=== PATIENT | male | born 1930 | race Caucasian/White ===

== ENCOUNTER 2016-07-12 15:01 | Inpatient (IN) | payer MEDICARE, MEDICAID ==
--- NOTE | 2016-07-12 15:49 | ED Physician Chart ---
Chief Complaint/HPI - Patient Information Date Seen:: 07/12/16 Time Seen:: 15:05 Chief Complaint:: G-tube replacement. History of Present Illness:: Brought in by ambulance from nursing facility because pt accidentally pulled out his G-tube earlier today. Pt already had a Martinez catheter inserted prior to arrival to keep the gastrostomy site open. Pt otherwise appears to be comfortable without distress. Pt has h/o dementia and is unable to cooperate; thus, H & P are limited. Info is primarily based on review of limited transfer documents. Allergies:: Allergies Allergy/AdvReac Type Severity Reaction Status Date / Time Penicillins Allergy Verified 02/29/16 17:07 Vitals:: Vital Signs - 8 hr 07/12/16 15:17 Temp 98.0 F HR 81 RR 22 BP 179/76 O2 Sat % 94 Historian:: Medical Records (from transferring facility.) Family MD/PCP:: Dr. Gunn LMP:: N/A Review:: Nurse's Note Reviewed, Transfer documents Reviewed Review of Systems - Review of Systems General/Constitutional: Other (Pt does not cooperate for ROS.) Past Medical History - Past Medical History Past Medical History: HTN, CHF, Asthma/COPD, CVA/TIA, Seizures, Arthritis, Dementia Family History: Other (Pt is unable to cooperate to provide info on FHx.) Social History: Care Facility, Other (Pt is unable to cooperate to provide info on SHx.) Employment:: Retired. Surgical History: PEG/GTube, other (Pt is unable to cooperate to provide info on Surgical Hx.) Psychiatricy History: Dementia Medication: Reviewed Family Medical History - Family Member Father History Unknown: Yes Physical Exam - Physical Examination General/Constitutional: Awake, Well-developed, well-nourished, Alert, No distress, Non-toxic appearing Other Gen/Cons comments:: Breathes comfortably, responsive to voice and tactile stimuli. Head: Atraumatic Eyes: Lids, conjuctiva normal, PERRL, EOMI Skin: No ecchymosis, Well hydrated, No lymphadenopathy ENMT: External ears, nose nl, Nasal exam nl, Oropharynx nl, Tonsils nl Neck: Nontender, Full ROM w/o pain, No JVD, No nuchal rigidity, No mass, No stridor Respiratory: Nl effort/Exclusion, Clear to Auscultation, No Wheeze/Rhonchi/Rales Cardio Vascular: RRR, No murmur, gallop, rubs, NL S1 S2 GI: No tenderness/rebounding/guarding, No organomegaly, No hernia, Normal BS's, Nondistended, No mass/bruits, No McBurney tenderness Other GI comments:: Obese but soft. Gastrostomy site in LUQ appears to be clean with Martinez catheter in place. Extremities: No edema Other Neuro/Psych comments:: Alert, responsive to voice and tactile stimuli. Spontaneous movements noticed in all 4 extremities. Pt does not cooperate for full neurological exam. Labs/Radiology/EKG Results - Lab Results Results: Laboratory Tests 07/12/16 07/12/16 07/12/16 16:31 16:31 16:31 WBC 6.9 RBC 4.35 Hgb 13.4 Hct 40.0 MCV 92.0 MCH 30.7 MCHC Differential 33.4 RDW 12.1 Plt Count 201 MPV 8.2 Neutrophils % 72.7 Lymphocytes % 14.9 L Monocytes % 10.3 H Eosinophils % 1.8 Basophils % 0.3 PT 12.0 H INR 1.20 PTT (Actin FS) 29.3 Sodium 134 L Potassium 4.6 Chloride 99 Carbon Dioxide 31.2 H Anion Gap 8.4 BUN 15 Creatinine 0.6 L Est GFR ( Amer) TNP Est GFR (Non-Af Amer) TNP BUN/Creatinine Ratio 25.0 Glucose 118 H Calcium 9.5 Total Bilirubin 0.4 AST 17 ALT 13 Alkaline Phosphatase 93 Total Protein 7.1 Albumin 3.9 L Globulin 3.2 Albumin/Globulin Ratio 1.2 Phenytoin Valproic Acid 07/12/16 07/12/16 16:31 16:31 WBC RBC Hgb Hct MCV MCH MCHC Differential RDW Plt Count MPV Neutrophils % Lymphocytes % Monocytes % Eosinophils % Basophils % PT INR PTT (Actin FS) Sodium Potassium Chloride Carbon Dioxide Anion Gap BUN Creatinine Est GFR ( Amer) Est GFR (Non-Af Amer) BUN/Creatinine Ratio Glucose Calcium Total Bilirubin AST ALT Alkaline Phosphatase Total Protein Albumin Globulin Albumin/Globulin Ratio Phenytoin 21.0 H Valproic Acid 31.8 L ED Septic Shock - . Is Septic Shock (SBP<90, OR Lactate>4 mmol\L) present?: No - <6hrs of presentation: Vital Signs: Vital Signs - 8 hr 07/12/16 15:17 Temp 98.0 F HR 81 RR 22 BP 179/76 O2 Sat % 94 Reassessment (Disposition) - Reassessment Reassessment:: 1745 Pt remains stable. Remaining lab results just became available. Dr. Gunn is to be contacted. 1914 Case was discussed with Dr. Gunn with H & P and pertinent lab findings reviewed. Pt is to be admitted to [facility] under his care. - Diagnosis Diagnosis:: Gastrostomy tube dislodgement. HTN, stable. h/o CVA with dementia. h/o seizure disorder, stable. - Patient Disposition Admitted to:: Med/Surg Admitting Medical Physician:: Vazquez Gunn Time:: 19:15 Condition at Disposition:: Stable
[2016-07-12 16:38] LABS: % BASOPHILS 0.3 % (0.0-2.0); % EOSINOPHILS 1.8 % (0.0-5.0); % LYMPHOCYTES 14.9 % (20.0-50.0); % MONOCYTES 10.3 % (2.0-10.0); % NEUTROPHILS 72.7 % (40.0-80.0); HEMOGLOBIN 13.4 gm/dL (12.6-17.4); MEAN CORPUSCULAR HEMOGLOBIN 30.7 pg (27.0-31.0); MEAN CORPUSCULAR HGB CONC 33.4 pg (28.0-36.0); MEAN PLATELET VOLUME 8.2 fl; NEUTROPHILE ABSOLUTE 5.1 Th/cmm (1.8-8.0); PLATELET COUNT 201 Th/cmm (150-400); RED BLOOD COUNT 4.35 Mil/cmm (3.80-5.80); RED CELL DISTRIBUTION WIDTH 12.1 % (11.5-20.0); WHITE BLOOD COUNT 6.9 Th/cmm (4.8-10.8)
[2016-07-12 16:48] LABS: INR 1.2 (0.5-1.4)
[2016-07-12 16:50] LABS: ALB/GLOB RATIO 1.2 (1.0-1.8); ALKALINE PHOSPHATASE 93 U/L (34-104); ANION GAP 8.4 (7.0-16.0); BILIRUBIN,TOTAL 0.4 mg/dL (0.3-1.0); BUN - UREA NITROGEN 15 mg/dL (7-25); CALCIUM SERUM 9.5 mg/dL (8.6-10.3); CARBON DIOXIDE 31.2 mEq/L (21.0-31.0); CHLORIDE 99 mEq/L (98-107); CREATININE - SERUM 0.6 mg/dL (0.7-1.3); GLUCOSE 118 mg/dL (70-105); POTASSIUM SERUM 4.6 mEq/L (3.5-5.1); SGOT 17 U/L (13-39); SGPT/ALT 13 U/L (7-52); SODIUM SERUM 134 mEq/L (136-145)
[2016-07-12] MEDS ORDERED: Magnesium Hydroxide (MOM) 30 mL UDC PO PRN (19:24)
[2016-07-12] MEDS ORDERED: Fleet Enema 135 mL RC PRN (19:24)
[2016-07-12] MEDS: D5-0.45NS 1,000 ML IV SCH (22:24)
--- NOTE | 2016-07-13 05:55 | Admit Criteria Form ---
Admit Criteria Forms - Admit Criteria Diagnosis: GASTROENTEROLOGY GRG Clinical Indications for Admission to Inpatient Care (Place 'X' for any and all applicable criteria): Hospital admission is needed for appropriate care of the patient because of ANY ONE of the followin [ ]I. Hemoperitoneum(7) [ ]II. Ascites requiring acute treatment indicated by ANY ONE of the following( 8)(9): [ ]a) Hemodynamic instability remaining after emergency or observation level care (as appropriate) [ ]b) Peritoneal signs present (eg, abdominal rigidity, rebound tenderness, absent bowel sounds) [ ]c) Tachypnea, Hypoxemia, or other respiratory symptoms remain after emergency or observation level care (as appropriate) [ ]d) Suspected infected ascites as indicated by ANY ONE of the following: [ ]i) Temperature greater than 100 degrees F (37.8 degrees C) [ ]ii) Abdominal pain or tenderness not relieved by paracentesis [ ]iii) Systemic signs of infection (eg, elevated WBC count, fever) [ ]iv) Ascitic fluid analysis consistent with infection ( eg, elevated WBC count): [ ]v) Vital sign abnormality [X]III. Suspected acute intra-abdominal process indicated by ANY ONE of the following(1)(2)(3)(4)(5): [ ]a) Hemodynamic instability [ ]b) Peritoneal signs present (eg, abdominal rigidity, rebound tenderness, absent bowel sounds) [ ]c) Bowel obstruction suspected (eg, severe vomiting, abdominal distension) [ ]d) Suspected mesenteric ischemia or ischemic colitis(6) [X]e) Other signs or symptoms of acute abdominal disease (eg, severe pain, free air): [ ]IV. Severe liver disease indicated by ANY ONE of the following(8)(9)(10)(11)( 12)(13)(14): [ ]a) Acute hepatitis (eg, transaminase level greater than 1000 IU/L) [ ]b) Acute elevation of prothrombin time to more than 50% above normal or INR greater than 1.5 [ ]c) Bilirubin greater than 20 mg/dL (342 micromoles/L) (15) [ ]d) New-onset or worsening hepatic encephalopathy [ ]e) Acute liver necrosis [ ]f) Vomiting or dehydration that is severe of persistent [ ]g) Hemodynamic instability due to liver disease [ ]h) Acute renal failure [ ]i) Hepatic abscess [ ]j) Dehydration that is severe or persistent [ ]k) Hepatic hydrothorax(21) [ ]l) Other indications of severe liver disease (eg, persistent fever , ingestion of hepatotoxin) [ ]V. Severe diarrhea indicated by ANY ONE of the following(17)(18)(19)(20)(21)( 22)(23): [ ]a) High fever or other high-risk infection situation [ ]b) Intractable bloody diarrhea (eg, more than 6 bloody stools per day) [ ]c) Suspected Clostridium difficile-associated diarrhea(24) [ ]d) Change in mental status that persists after emergency or observation level care (as appropriate) [ ]e) Severe dehydration (eg, greater than 9% loss of body weight in children) [ ]f) Inability to maintain hydration [ ]g) Peritoneal signs present (eg, abdominal rigidity, rebound tenderness, absent bowel sounds) [ ]h) Abdominal ischemia suspected(6) [ ]i) Hemodynamic instability that persists after emergency or observation level care (as appropriate) [ ]j) Severe electrolyte abnormalities requiring inpatient care [ ]k) Acute renal failure [ ]. Suspected toxic megacolon(5)(6) [ ]VII.Severe dysphagia indicated by ANY ONE of the following(25)(26): [ ]a) Suspected esophageal perforation or fistula(27) [ ]b) Suspected cause that requires inpatient care (eg, caustic ingestion, severe esophagitis) (28) [ ]c) Severe dehydration (eg, greater than 9% loss of body weight in children) [ ]d) Inability to manage secretions or maintain hydration [ ]e) Hemodynamic instability that persists after emergency or observation level care (as appropriate) [ ]f) Severe electrolyte abnormalities requiring inpatient care [ ]g) Acute renal failure [ ]VIII.Vomiting and ANY ONE of the following (29)(30)(31)(32): [ ]a) High fever or other high-risk infection situation [ ]b) Change in mental status that persists after emergency or observation level care (as appropriate) [ ]c) Severe dehydration (e.g., greater than 9% loss of body weight in children) [ ]d) Peritoneal signs present (e.g., abdominal rigidity, rebound tenderness, absent bowel sounds) [ ]e) Hemodynamic instability that persists after emergency or observation level care (as appropriate) [ ]f) Severe electrolyte abnormalities requiring inpatient care [ ]g) Acute renal failure [ ]h) Bowel obstruction suspected (e.g., severe vomiting, abdominal distension) [ ]i) Vomiting that is severe or persistent after medical treatment [ ]IX. Significant dehydration indicated by ANY ONE of the following(23)(24)(25) [ ]a) Clinical findings of severe dehydration indicated by ANY ONE of the following: [ ]i) Acute loss of weight from baseline (5% of body weight in adults, 9% in pediatric patients) [ ]ii) Hemodynamic instability [ ]iii) Acute renal failure [ ]iv) Serum sodium greater than 150 mEq/L (mmol/L) [ ]b) Dehydration that is persistent indicated by ALL of the following: [ ]i) Oral rehydration therapy not tolerated or insufficient to adequately correct dehydration [ ]ii) Appropriate intravenous treatment (eg, fluids) does not readily correct dehydration hours of (ie, after 12 to 24 of treatment) [ ]X. Gastroparesis and ANY ONE of the following(37)(38)(39): [ ]a) Dehydration that is severe or persistent [ ]b) Severe electrolyte abnormalities requiring inpatient care [ ]c) Acute renal failure [ ]d) Vomiting that is severe or persistent [ ]XI. Complications of transplanted liver indicated by ANY ONE of the following (40)(41): [ ]a) Acute graft rejection requiring inpatient management (eg, intravenous immunosuppression)(42) [ ]b) Failure of transplanted liver as indicated by ANY ONE of the following: [ ]i) Acute hepatitis (eg, transaminase level greater than 1000 International Units per liter (IU/L)) [ ]ii) Acute elevation of prothrombin time to more than 50% above baseline or INR greater than 1.5 [ ]iii) Bilirubin greater than 20 mg/dL (342 micromoles/L) [ ]iv) New-onset or worsening hepatic encephalopathy [ ]v) Acute elevation of serum ammonia level (eg, greater than 210 mcg/dL (150 micromoles/L)) [ ]vi) Acute liver necrosis [ ]c) Infection requiring inpatient management (eg, Hemodynamic instability, need for intravenous antimicrobial treatment)(43)(44)(45)(46)(47)(48)(49)(50) [ ]d) Other complication of transplanted liver (eg, thrombosis, autoimmune hepatitis, variceal bleeding) requiring inpatient management(51)(52) [ ]XII Complications of transplanted pancreas indicated by ANY ONE of the following(53): [ ]a) Acute graft rejection requiring inpatient management (eg, intravenous immunosuppression)(42)(54) [ ]b) Failure of transplanted pancreas as indicated by ANY ONE of the following: [ ]i) Serum amylase greater than 3 times the upper limit of normal or baseline [ ]ii) Serum lipase greater than 3 times the upper limit of normal or baseline [ ]iii) Imaging findings consistent with pancreatic inflammation or necrosis [ ]c) Infection requiring inpatient management (eg, Hemodynamic instability, need for intravenous antimicrobial treatment)(43)(44)(45)(46)(47)(48)(49)(50) [ ]d) Other complication of transplanted liver (eg, thrombosis, autoimmune hepatitis, variceal bleeding) requiring inpatient management(51)(52) [ ]X. Gastroenterology condition and ALL of the following: [ ]a) Symptom or finding for which emergency and observation care have failed or are not considered appropriate (Also use General Criteria: Observation Care as appropriate) [ ]b) Presence of ANY ONE of the following: [ ]i) A General Admission Criteria [ ]ii) A Pediatric General Admission Criteria. The original [facility] content created by [facility] has been revised. The portions of the content which have been revised are identified through the use of italic text or in bold,and [facility] has neither reviewed nor approved the modified material. All other unmodified content is copyright [facility]. Please see references footnoted in the original [facility] edition 2016 Admit Criteria Met?: Yes
[2016-07-13] MEDS: INSULIN ASPART, RECOMBINANT 100 UNITS/ML SUBQ SCH ×2 (09:00→16:28)
[2016-07-13] MEDS ORDERED: Non-Formulary Item 1 EA (Apixaban [Eliquis] 2.5 MG) GT SCH (09:00)
[2016-07-13] MEDS ORDERED: Non-Formulary Item 1 EA (Protein Supplement [Promod] 30 ML) GT SCH (09:00)
--- NOTE | 2016-07-13 10:12 | History & Physical Pre-OP ---
CHIEF COMPLAINT: Malfunctioning G-tube. HISTORY OF PRESENT ILLNESS: This is an 85-year-old male who presents to [facility] ER for malfunctioning G-tube after the patient accidentally pulled out his G-tube while at the longterm. The patient has a previous history of dementia and therefore unable to provide any history at this point. Majority of the history is derived from the medical records and transferred records. PAST MEDICAL HISTORY: Includes hypertension, CHF, asthmatic bronchitis, COPD, CVA, TIA, has a history of seizure disorder, arthritis, and dementia. SOCIAL HISTORY: [facility] Denies any tobacco use or IV drug use. ALLERGIES: PENICILLIN. MEDICATIONS: See med list. LABORATORY DATA: CBC: White count was 6.9, hemoglobin 13.4, hematocrit 40.0, platelets 201. PT/INR 12.0 and 1.2. Chem-7, sodium 134, potassium 4.6, chloride 99, bicarbonate 31, BUN 15, creatinine 0.6, glucose 118, AST 17, ALT is 13, alkaline phosphatase 93. REVIEW OF SYSTEMS: Unable to obtain due to patient's current condition. PHYSICAL EXAMINATION: VITAL SIGNS: Temperature 98.0, pulse 81, respirations 22, blood pressure ____/76. GENERAL: This is an 85-year-old male, well-developed, well-nourished, appears stated age. HEENT: Normocephalic, atraumatic. Pupils equal, round, react to light and accommodation. Extraocular muscles are intact. TMs intact. NECK: Supple, good range of motion, no thyromegaly, no lymphadenopathy. CARDIOVASCULAR: Regular rate and rhythm. No murmurs, rubs or clicks. LUNGS: Clear to auscultation. No rales, rhonchi or wheezing. ABDOMEN: Soft, nontender, nondistended. Bowel sounds are active in all 4 quadrants. Martinez catheter over stoma to maintain stone opening. EXTREMITIES: No clubbing, cyanosis or edema. Pedal pulses intact. NEUROLOGIC: Cranial nerves 2-12 grossly intact. No focal deficits. ASSESSMENT: 1. Malfunctioning G-tube. 2. Hypertension. 3. Congestive heart failure. 4. Asthmatic bronchitis. 5. Transient ischemic attack/cerebrovascular accident. 6. Seizure disorder. 7. Dementia. PLAN: We will order GI consult with Dr. Sidhom to replace G-tube. Also, we will continue home medications. The patient on IV fluids D5 half normal saline at 50 mL per hour. [facility]# [id number]
[2016-07-13] MEDS: Levetiracetam 500 mg/5mL 5mL UDC PO SCH ×2 (10:19→22:00)
[2016-07-13] MEDS ORDERED: Diatrizoate Meglumine/Diatri 30 mL Sol PO ONE (11:47)
--- NOTE | 2016-07-13 15:41 | Operative Report ---
INPATIENT GASTROINTESTINAL PROCEDURE PROCEDURE: G-tube change. REFERRING PHYSICIAN: Dr. Gunn. REASON FOR PROCEDURE: Malfunctioning G-tube, dysphagia. PREOPERATIVE DIAGNOSES: Malfunctioning G-tube, dysphagia. POSTOPERATIVE DIAGNOSES: New 20-Trinidadian gastrostomy tube placed. DESCRIPTION OF PROCEDURE: The patient was placed on his back. The old G-tube site was identified. There was a Martinez tube coming out of it. The Martinez was removed after deflating internal balloon and pulled out. A new 20-Trinidadian gastrostomy tube was lubricated. The tip inserted through the gastrocutaneous fistula entering into stomach lumen. Internal balloon was inflated with 15 mL of sterile saline. Outer phalange was secured in position. Procedure was then completed. COMPLICATIONS: None. FINDINGS: New 20-Trinidadian gastrostomy tube placed. RECOMMENDATIONS: 1. Use G-tube if x-ray shows it in the stomach 2. KUB with Gastrografin 3. Abdominal binder to protect the G-tube. Thank you for allowing me to participate. Please call me if any questions. JOB# [id number]
--- NOTE | 2016-07-13 16:34 | Diagnostic Imaging Report ---
Upper GI (Limited) HISTORY: Gastrostomy tube placement Water-soluble contrast was instilled into the gastrostomy tube. The exam demonstrates opacification of the gastric lumen with flow contrast into the duodenum. No extravasation. IMPRESSION: 1. Confirmation of gastrostomy tube within the gastric lumen
[2016-07-13] MEDS: D5-0.45NS 1,000 ML IV SCH (22:18)
--- NOTE | 2016-07-14 01:39 | Consultation ---
Inpatient GI consult REFERRING PHYSICIAN: Dr. Gunn. REASON FOR CONSULTATION: Malfunctioning G-tube. HISTORY OF PRESENT ILLNESS: An 85-year-old male who came from outside facility with a G-tube that had been pulled out and now has a Martinez tube in place. The patient is otherwise a poor historian. PAST MEDICAL HISTORY: Hypertension, congestive heart failure, asthma, COPD, stroke, TIA, seizure disorder, arthritis, dementia. PAST SURGICAL HISTORY: PEG tube placement. FAMILY HISTORY: Noncontributory. SOCIAL HISTORY: Resident of [facility] facility. ALLERGIES: PENICILLIN. CURRENT MEDICATIONS: Dulcolax, ____, Keppra, milk of magnesia and Dilantin. REVIEW OF SYSTEMS: Unobtainable. PHYSICAL EXAMINATION: VITAL SIGNS: Temperature is 98.2, breathing 19, pulse of 79, blood pressure is 133/71, satting 99%. GENERAL: In no apparent distress. EYES: Anicteric, normal conjunctivae. HEENT: Normocephalic, atraumatic. Moist mucous membranes. NECK: Soft, supple. CHEST: Clear effort. CARDIOVASCULAR: Regular rate and rhythm. ABDOMEN: Soft, nontender, nondistended. SKIN: Warm, dry. EXTREMITIES: Reveal no cyanosis. LABORATORY DATA: Show a white count 6.9, hemoglobin 13.4, platelets of 201. INR is 1.2. LFTs within normal limits. IMPRESSION: This is an 85-year-old male with a malfunctioning G-tube, dysphagia. We will need to have a G-tube placed. PLAN: G-tube to be changed at bedside. Thank you for allowing me to participate. Please call me if any questions. JOB# [id number]
[2016-07-14] MEDS: Levetiracetam 500 mg/5mL 5mL UDC PO SCH (09:57)
[2016-07-14] MEDS: INSULIN ASPART, RECOMBINANT 100 UNITS/ML SUBQ SCH (09:58)
--- NOTE | 2016-07-18 15:17 | Discharge Summary ---
PRELIMINARY DIAGNOSES: 1. Malfunctioning G-tube. 2. Hypertension. 3. Congestive heart failure. 4. Asthmatic bronchitis. 5. Transient ischemic attack. 6. Seizure disorder. 7. Dementia. DISCHARGE DIAGNOSES: 1. Replacement of G-tube. 2. Hypertension. 3. Congestive heart failure. 4. Asthmatic bronchitis. 5. Transient ischemic attack. 6. Seizure disorder. 7. Dementia. BRIEF HISTORY OF PRESENT ILLNESS: This is an 85-year-old male who presents to [facility] ER for malfunctioning G-tube after patient [facility]. The patient has a previous history of hypertension, CHF, asthmatic bronchitis, COPD, CVA, TIA, has a history of seizure disorder, arthritis and dementia. SOCIAL HISTORY: Includes resident of [facility] facility. ALLERGIES: ONLY TO PENICILLIN. MEDICATIONS: See medication list. His initial laboratory, CBC, white count was 6.9, hemoglobin 13.4, hematocrit 40.0, platelets 201. Chem-7, sodium 134, potassium 4.6, chloride 99, bicarbonate 31, BUN 15, creatinine 0.6, glucose 118. HOSPITAL COURSE: The patient improved during his hospital stay, was seen and evaluated by Dr. Hinkle for replacement of his G-tube. The patient was subsequently restarted on his G-tube feeding, which he tolerated very well. He was subsequently discharged in stable condition to continue his current medications at the prison. JOB# [id number]
== END 2016-07-14 14:05 | DRG 394 ==
LOC: ER 15:01 → MSI 19:15
PROVIDERS: ADMIT Family Medicine; ATTEND Family Medicine
PROC: 0D20XUZ Change Feeding Device in Upper Intestinal Tract, External Approach (ICD-10-PCS; principal; 2016-07-13)
DX: K94.23 Gastrostomy malfunction (principal); E87.1 Hypo-osmolality and hyponatremia; I50.9 Heart failure, unspecified; F03.90 Unspecified dementia, unspecified severity, without behavioral disturbance, psychotic disturbance, mood disturbance, and anxiety; I11.0 Hypertensive heart disease with heart failure; J44.9 Chronic obstructive pulmonary disease, unspecified; R13.10 Dysphagia, unspecified; J45.909 Unspecified asthma, uncomplicated; G40.909 Epilepsy, unspecified, not intractable, without status epilepticus; M19.90 Unspecified osteoarthritis, unspecified site; Y92.89 Other specified places as the place of occurrence of the external cause; Y83.8 Other surgical procedures as the cause of abnormal reaction of the patient, or of later complication, without mention of misadventure at the time of the procedure; Z86.73 Personal history of transient ischemic attack (TIA), and cerebral infarction without residual deficits; Z88.0 Allergy status to penicillin
CPT/HCPCS: 36415-UA; 80053-TC; 80164-TC; 80185-TC; 82948-90; 85025-TC; 85610-TC; J1815; J7042; Z7610

== ENCOUNTER 2016-08-23 21:57 | Inpatient (IN) | payer MEDICARE, MEDICAID ==
[2016-08-23 22:35] LABS: % BASOPHILS 0.3 % (0.0-2.0); % EOSINOPHILS 4.7 % (0.0-5.0); % LYMPHOCYTES 27.8 % (20.0-50.0); % MONOCYTES 9.2 % (2.0-10.0); HEMATOCRIT 38.4 % (39.0-49.0); HEMOGLOBIN 13.2 gm/dL (12.6-17.4); MEAN CELL VOLUME 90.1 fl (80-99); MEAN CORPUSCULAR HEMOGLOBIN 30.9 pg (27.0-31.0); MEAN CORPUSCULAR HGB CONC 34.3 pg (28.0-36.0); MEAN PLATELET VOLUME 8.3 fl; NEUTROPHILE ABSOLUTE 3.1 Th/cmm (1.8-8.0); PLATELET COUNT 195 Th/cmm (150-400); RED BLOOD COUNT 4.26 Mil/cmm (3.80-5.80); RED CELL DISTRIBUTION WIDTH 12.4 % (11.5-20.0)
--- NOTE | 2016-08-23 22:36 | ED Physician Chart ---
Chief Complaint/HPI - Patient Information Date Seen:: 08/23/16 Time Seen:: 22:10 Chief Complaint:: G-TUBE MALFUNCTION History of Present Illness:: THIS IS AN 85 YO MALE WHO WAS SENT FROM THE [facility]LTER FOR REPLACEMENT OF THE G-TUBE IN THE ABDOMEN. THE PATIENT IS NOT VOMITING OR HAVING FEVER. Allergies:: Allergies Allergy/AdvReac Type Severity Reaction Status Date / Time Penicillins Allergy Verified 02/29/16 17:07 Vitals:: Vital Signs - 8 hr 08/23/16 22:00 Temp 97.9 F HR 65 RR 19 BP 144/71 Historian:: Medical Records Review:: Nurse's Note Reviewed, Transfer documents Reviewed Review of Systems - Review of Systems General/Constitutional: No fever, No chills, No weight loss, No weakness, No diaphoresis, No edema, No loss of appetite, Other (THIS PATIENT IS UNABLE TO GIVE A REVIEW OF SYSTEMS) Skin: No skin lesions, No rash, No bruising Head: No headache, No light-headedness Eyes: No loss of vision, No pain, No diplopia ENT: No earache, No nasal drainage, No sore throat, No tinnitus Neck: No neck pain, No swelling, No thyromegaly, No stiffness, No mass noted Cardio Vascular: No chest pain, No palpitations, No PND, No orthopnea, No edema Pulmonary: No SOB, No cough, No sputum, No wheezing GI: No nausea, No vomiting, No diarrhea, No pain, No melena, No hematochezia, No constipation, No hematemesis G/U: No dysuria, No frequency, No hematuria Musculoskeletal: No bone or joint pain, No back pain, No muscle pain Endocrine: No polyuria, No polydipsia Psychiatric: No prior psych history, No depression, No anxiety, No suicidal ideation Hematopoietic: No bruising, No lymphadenopathy Allergic/Immuno: No urticaria, No angioedema Neurological: No syncope, No focal symptoms, No weakness, No paresthesia, No headache, No seizure, No dizziness, No confusion, No vertigo Past Medical History - Past Medical History Obtainable: Yes Past Medical History: HTN, DM, CAD, CHF, Asthma/COPD, CVA/TIA, Dementia Family History: Other (UNKNOWN) Social History: Non Smoker, No Alcohol, No Drug Use Surgical History: PEG/GTube Psychiatricy History: Dementia Medication: Reviewed Family Medical History - Family Member Father History Unknown: Yes Ethnicity: Non- Living Status: Unknown Physical Exam - Physical Examination General/Constitutional: Awake, Well-developed, well-nourished, No distress, GCS 15, Non-toxic appearing, Ambulatory Other Gen/Cons comments:: THE PT IS SEMI COMATOSE AND NOT SPEAKING WITH DISORIENTATION. Head: Atraumatic Eyes: Lids, conjuctiva normal, PERRL, EOMI Skin: Nl inspection, No rash, No skin lesions, No ecchymosis, Well hydrated, No lymphadenopathy ENMT: External ears, nose nl, Nasal exam nl, Lips, teeth, gums nl Neck: Nontender, Full ROM w/o pain, No JVD, No nuchal rigidity, No bruit, No mass, No stridor Respiratory: Nl effort/Exclusion, Clear to Auscultation, No Wheeze/Rhonchi/Rales Cardio Vascular: RRR, No murmur, gallop, rubs, NL S1 S2 GI: No tenderness/rebounding/guarding, No organomegaly, No hernia, Normal BS's, Nondistended, No mass/bruits, No McBurney tenderness Other GI comments:: G-TUBE NOTED AND MALFUNCTIONING. : No CVA tenderness Extremities: No tenderness or effusion, Full ROM, normal strength in all extremities, No edema, Normal digits & nails Other Extremities comments:: SEVERE MUSCLE WASTING IN ALL FOUR EXTREMITIES. Neuro/Psych: Alert/oriented, DTR's symmetric, Normal sensory exam, Normal motor strength, Judgement/insight normal, Mood normal, Normal gait, No focal deficits Misc: normal gait, Normal back, No paraspinal tenderness Labs/Radiology/EKG Results - Lab Results Results: Laboratory Results - last 24 hr 08/23/16 08/23/16 08/23/16 22:22 22:22 22:22 WBC 5.4 D RBC 4.26 Hgb 13.2 Hct 38.4 L MCV 90.1 MCH 30.9 MCHC Differential 34.3 RDW 12.4 Plt Count 195 MPV 8.3 Neutrophils % 58.0 Lymphocytes % 27.8 Monocytes % 9.2 Eosinophils % 4.7 Basophils % 0.3 PT 14.9 H INR 1.40 Sodium Potassium Chloride Carbon Dioxide Anion Gap BUN Creatinine Est GFR ( Amer) Est GFR (Non-Af Amer) BUN/Creatinine Ratio Glucose Calcium Total Bilirubin AST ALT Alkaline Phosphatase Troponin I Total Protein Albumin Globulin Albumin/Globulin Ratio Triglycerides 135 Cholesterol 154 LDL Cholesterol Direct 95 HDL Cholesterol 43 08/23/16 08/23/16 22:22 22:22 WBC RBC Hgb Hct MCV MCH MCHC Differential RDW Plt Count MPV Neutrophils % Lymphocytes % Monocytes % Eosinophils % Basophils % PT INR Sodium 128 L Potassium 4.2 Chloride 92 L Carbon Dioxide 29.5 Anion Gap 10.7 BUN 15 Creatinine 0.5 L Est GFR ( Amer) TNP Est GFR (Non-Af Amer) TNP BUN/Creatinine Ratio 30.0 Glucose 96 Calcium 9.2 Total Bilirubin 0.4 AST 17 ALT 12 Alkaline Phosphatase 86 Troponin I < 0.01 L Total Protein 6.8 Albumin 3.7 L Globulin 3.1 Albumin/Globulin Ratio 1.2 Triglycerides Cholesterol LDL Cholesterol Direct HDL Cholesterol - EKG Interpretations EKG Time:: 22:12 Rhythm: SINUS Wesley: LEFT Rate: 64 ED Septic Shock - . Is Septic Shock (SBP<90, OR Lactate>4 mmol\L) present?: No - <6hrs of presentation: Vital Signs: Vital Signs - 8 hr 08/23/16 22:00 Temp 97.9 F HR 65 RR 19 BP 144/71 Reassessment (Disposition) - Reassessment Reassessment Condition:: Unchanged - Diagnosis Diagnosis:: G-TUBE MALFUNCTION DEMENTIA DEHYDRATION - Patient Disposition Discharge/Transfer:: Acute Care w/in this hosp Admitting Medical Physician:: Russel Gunn Condition at Disposition:: Unchanged ED Discharge Plan - Patient Disposition Admit/Discharge/Transfer: Acute Care w/in this hosp Condition at Disposition: Unchanged
[2016-08-23 22:44] LABS: WHITE BLOOD COUNT 5.4 Th/cmm (4.8-10.8)
[2016-08-23 22:49] LABS: CHOLESTEROL 154 mg/dL (<200); INR 1.4 (0.5-1.4); PROTHROMBIN TIME (TEST) 14.9 SECONDS (9.5-11.5); TRIGLYCERIDES 135 mg/dL (<150)
[2016-08-23 22:50] LABS: ALB/GLOB RATIO 1.2 (1.0-1.8); ALKALINE PHOSPHATASE 86 U/L (34-104); ANION GAP 10.7 (7.0-16.0); BILIRUBIN,TOTAL 0.4 mg/dL (0.3-1.0); BUN - UREA NITROGEN 15 mg/dL (7-25); CALCIUM SERUM 9.2 mg/dL (8.6-10.3); CARBON DIOXIDE 29.5 mEq/L (21.0-31.0); CHLORIDE 92 mEq/L (98-107); CREATININE - SERUM 0.5 mg/dL (0.7-1.3); GLUCOSE 96 mg/dL (70-105); POTASSIUM SERUM 4.2 mEq/L (3.5-5.1); SGOT 17 U/L (13-39); SGPT/ALT 12 U/L (7-52); SODIUM SERUM 128 mEq/L (136-145)
[2016-08-24] MEDS ORDERED: D5-0.45NS 1,000 ML IV SCH (03:45)
[2016-08-24 07:24] LABS: % BASOPHILS 0.5 % (0.0-2.0); % EOSINOPHILS 4.1 % (0.0-5.0); % LYMPHOCYTES 22.3 % (20.0-50.0); % MONOCYTES 11.2 % (2.0-10.0); % NEUTROPHILS 61.9 % (40.0-80.0); HEMATOCRIT 35.6 % (39.0-49.0); HEMOGLOBIN 12.3 gm/dL (12.6-17.4); MEAN CORPUSCULAR HEMOGLOBIN 30.7 pg (27.0-31.0); MEAN CORPUSCULAR HGB CONC 34.5 pg (28.0-36.0); MEAN PLATELET VOLUME 8.2 fl; NEUTROPHILE ABSOLUTE 3.6 Th/cmm (1.8-8.0); PLATELET COUNT 188 Th/cmm (150-400); RED CELL DISTRIBUTION WIDTH 12.3 % (11.5-20.0); WHITE BLOOD COUNT 5.7 Th/cmm (4.8-10.8)
[2016-08-24 07:40] LABS: ALB/GLOB RATIO 1.2 (1.0-1.8); ALKALINE PHOSPHATASE 85 U/L (34-104); ANION GAP 8.9 (7.0-16.0); BILIRUBIN,TOTAL 0.4 mg/dL (0.3-1.0); BUN - UREA NITROGEN 13 mg/dL (7-25); BUN/CREATININE RATIO 21.7; CALCIUM SERUM 9.4 mg/dL (8.6-10.3); CARBON DIOXIDE 33.6 mEq/L (21.0-31.0); CHLORIDE 95 mEq/L (98-107); CREATININE - SERUM 0.6 mg/dL (0.7-1.3); GLUCOSE 109 mg/dL (70-105); POTASSIUM SERUM 4.5 mEq/L (3.5-5.1); SGOT 19 U/L (13-39); SGPT/ALT 13 U/L (7-52); SODIUM SERUM 133 mEq/L (136-145)
[2016-08-24] MEDS ORDERED: Magnesium Hydroxide (MOM) 30 mL UDC GT PRN (08:27)
[2016-08-24] MEDS ORDERED: Fleet Enema 135 mL RC PRN (08:27)
[2016-08-24] MEDS ORDERED: D5-0.9%NS 1,000 ML IV SCH (08:30)
--- NOTE | 2016-08-24 08:51 | Admit Criteria Form ---
Admit Criteria Forms - Admit Criteria Diagnosis: PSYCHIATRIC DISORDERS Clinical Indications for Inpatient Care (Place 'X' for any and all applicable criteria): Ongoing inpatient care may be needed for ANY ONE of the following(1)(2)(3)(4)(6) (7)(8): [ ]I. Danger to self or others not manageable at lower level of care. [ ]II. Grave disability (eg, inability to perform self care necessary at lower level of care) [ ]III. Agitation or inappropriate behavior interfering with care for primary condition (eg, attempting to discontinue lines or drains prematurely, unable to cooperate with respiratory care) [X]IV. Severe disability or disorder indicated by ALL of the following: [X]a) Severe behavioral health disorder-related symptoms or condition indicated by ANY ONE of the following: [X]i) Severe problem with cognition, memory, judgment, or impulse control [ ]ii) Severe clinical manifestations (eg, hallucinations, delusions, other acute psychotic symptoms, roselia, extreme agitation or anxiety) [X]b) Patient management at lower level of care is not feasible until acute intervention or modification is initiated. Extended stay beyond goal length of stay for the primary condition may be indicated when ANY ONE of the following is present: (1)(2)(3)(4): [ ]a) Patient is a danger to self or others and not manageable at lower level of care. [ ]b) Behavior crisis management, including physical or chemical restraints, is required and is not available at a lower level of care. [ ]c) Behavioral symptoms (e.g., agitation, somnolence, inappropriate behavior) are present, and are not manageable at a lower level of care. [ ]d) Patient cannot understand follow-up treatment and crisis plan. [ ]e) Provider and supports are not sufficiently available at lower level of care. [ ]f) Patient cannot participate (e.g., verify absence of plan for harm) and is in needed of monitoring. The original [facility] content created by [facility] has been revised. The portions of the content which have been revised are identified through the use of italic text or in bold, and [facility] has neither reviewed nor approved the modified material. All other unmodified content is copyright [facility]. Please see references footnoted in the original [facility] edition 2016 Admit Criteria Met?: Yes
[2016-08-24] MEDS ORDERED: Non-Formulary Item 1 EA (Protein Supplement [Promod] 30 ML) GT SCH (09:00)
[2016-08-24 10:42] VITALS: BP 126/63
[2016-08-24] MEDS: Levetiracetam 500 mg/5mL 5mL UDC GT SCH (10:50)
[2016-08-24] MEDS ORDERED: Diatrizoate Meglumine/Diatri 30 mL Sol PO ONE (11:00)
--- NOTE | 2016-08-24 11:29 | History & Physical ---
CHIEF COMPLAINT: Malfunctioning G-tube. HISTORY OF PRESENT ILLNESS: This is an 85-year-old male who presents to [facility] ER from custodial facility for malfunctioning G-tube. The patient has no fever, no chills, no nausea or vomiting. The patient apparently pulled his G-tube out at the snf and was subsequently sent here for reinsertion. PAST MEDICAL HISTORY: Includes hypertension, diabetes mellitus, coronary artery disease, CHF, asthma, COPD, CVA, TIA, and dementia. His initial lab showed white count of 5.4, hemoglobin 13.2, hematocrit 38.4, platelets ____. PT/INR 14.9 and 1.4. Chem-7: Sodium was 128, potassium 4.2, chloride 92, bicarbonate 29, BUN 15, creatinine 0.5, glucose 96. PT/INR was 14.9 and 1.4. REVIEW OF SYSTEMS: Unable to obtain due to patient's current condition. FAMILY HISTORY: Noncontributory. ALLERGIES: PENICILLIN. PHYSICAL EXAMINATION: VITAL SIGNS: Temperature 97.8, pulse 61, blood pressure 131/74, respiration 16. GENERAL: This is an 85-year-old male, well developed, well nourished, appears stated age. HEENT: Normocephalic, atraumatic. Pupils equal, round, reactive to light and accommodation. Extraocular muscles intact. Ears: TMs intact. NECK: Supple. Good range of motion. No thyromegaly, no lymphadenopathy. HEART: Regular rate and rhythm. No murmurs, rubs or clicks. LUNGS: Clear to auscultation. No rales, rhonchi or wheezing. ABDOMEN: Soft, nontender, nondistended. Bowel sounds are active in all 4 quadrants. No rebound tenderness, no rigidity, no guarding. EXTREMITIES: No clubbing, cyanosis or edema. Pedal pulses are intact. ASSESSMENT: 1. Malfunctioning G-tube. 2. Dementia. 3. Dehydration. 4. Hypertension. 5. Diabetes mellitus. 6. Coronary artery disease. 7. Congestive heart failure. 8. Asthma. 9. Chronic obstructive pulmonary disease. 10. Cerebrovascular accident. 11. Transient ischemic attack. 12. Dementia. 13. Hyponatremia. PLAN: We will keep the patient n.p.o. Start on IV fluids D5 normal saline at 50 mL an hour. We will order GI consult with Dr. Martinez for replacement of G-tube. We will continue patient's current medications. [facility]# [id number]
--- NOTE | 2016-08-24 13:45 | Diagnostic Imaging Report ---
Upper GI with Gastrografin HISTORY: G-tube confirmation COMPARISON: 07/13/2016 FINDINGS: Field Enumerator view demonstrates copious stool with distal fecal impaction. Generalized gas-filled loops of bowel are noted. The second image demonstrates contrast opacification of the stomach and small bowel loops. IMPRESSION: Intraluminal confirmation of patient's percutaneous gastric feeding tube. Copious stool in distal fecal impaction. There may be superimposed ileus.
[2016-08-24] MEDS ORDERED: WARFARIN SODIUM GT SCH (17:00)
--- NOTE | 2016-08-25 00:51 | Consultation ---
INPATIENT GASTROINTESTINAL CONSULTATION REFERRING PHYSICIAN: Dr. Gunn. REASON FOR CONSULTATION: Malfunctioning G-tube. HISTORY OF PRESENT ILLNESS: This is an 85-year-old male from an outside facility, apparently had a G-tube that had fallen out and was replaced by a Martinez tube and sent to the hospital. The patient is a poor historian, unable to give any meaningful history. PAST MEDICAL HISTORY: Hypertension, diabetes, coronary artery disease, congestive heart failure, asthma, COPD, stroke, TIA, dementia, dysphagia. PAST SURGICAL HISTORY: PEG tube done to the stomach. SOCIAL HISTORY: Resident of [facility] facility. FAMILY HISTORY: Noncontributory. ALLERGIES: PENICILLIN. CURRENT MEDICATIONS: Tylenol, Dulcolax, Catapres, Keppra, milk of magnesia, Penicillin, valproic acid, and Coumadin. REVIEW OF SYSTEMS: Ten-point review of system was performed and was unobtainable. PHYSICAL EXAMINATION: VITAL SIGNS: Temperature 98, breathing 19, pulse of 70, blood pressure 126/63, satting 97%. GENERAL: In no apparent distress. EYES: Anicteric. Normal conjunctivae. HENT: Normocephalic, atraumatic. Moist mucous membranes. NECK: Soft, supple. CHEST: Clear. No effort. CARDIOVASCULAR: Regular rate and rhythm. ABDOMEN: Soft, nontender, nondistended with a G-tube that is actually a Martinez, keeping the hole open. SKIN: Warm and dry. EXTREMITIES: Reveal no cyanosis. LABORATORY DATA: Show white count 5.4, hemoglobin 13.2, platelets of 195. INR is 1.4. LFTs were within normal limits. IMPRESSION: An 85-year-old male with a malfunctioning gastrostomy-tube, currently has a Martinez tube to keep it in place. We will need to do an x-ray to make sure it is still in place in the stomach and eventually we will need to change it. PLAN: 1. Upper GI series with Gastrografin through the G-tube to confirm placement in the stomach. 2. We will need G-tube to be changed eventually. Thank you for allowing me to participate. Please call me if any questions. JOB# [id number]
[2016-08-25 07:27] LABS: % BASOPHILS 0.3 % (0.0-2.0); % LYMPHOCYTES 14.3 % (20.0-50.0); % NEUTROPHILS 73.4 % (40.0-80.0); HEMATOCRIT 34.7 % (39.0-49.0); HEMOGLOBIN 12.2 gm/dL (12.6-17.4); MEAN CELL VOLUME 89.7 fl (80-99); MEAN CORPUSCULAR HEMOGLOBIN 31.4 pg (27.0-31.0); MEAN PLATELET VOLUME 8.8 fl; NEUTROPHILE ABSOLUTE 4.9 Th/cmm (1.8-8.0); PLATELET COUNT 175 Th/cmm (150-400); RED BLOOD COUNT 3.87 Mil/cmm (3.80-5.80); RED CELL DISTRIBUTION WIDTH 12.4 % (11.5-20.0); WHITE BLOOD COUNT 6.6 Th/cmm (4.8-10.8)
[2016-08-25 07:32] LABS: ALB/GLOB RATIO 1.2 (1.0-1.8); ALKALINE PHOSPHATASE 88 U/L (34-104); ANION GAP 8.3 (7.0-16.0); BILIRUBIN,TOTAL 0.5 mg/dL (0.3-1.0); BUN - UREA NITROGEN 12 mg/dL (7-25); CALCIUM SERUM 8.8 mg/dL (8.6-10.3); CARBON DIOXIDE 28.6 mEq/L (21.0-31.0); CHLORIDE 98 mEq/L (98-107); CREATININE - SERUM 0.5 mg/dL (0.7-1.3); GLUCOSE 112 mg/dL (70-105); POTASSIUM SERUM 3.9 mEq/L (3.5-5.1); SGOT 18 U/L (13-39); SGPT/ALT 13 U/L (7-52); SODIUM SERUM 131 mEq/L (136-145)
[2016-08-25 08:44] LABS: INR 1.89 (0.5-1.4); PROTHROMBIN TIME (TEST) 20.3 SECONDS (9.5-11.5)
[2016-08-25] MEDS: Levetiracetam 500 mg/5mL 5mL UDC GT SCH ×2 (09:00→21:18)
--- NOTE | 2016-08-25 09:39 | Diagnostic Imaging Report ---
CHEST X-RAY: AP view INDICATION: pain COMPARISON: Chest x-ray 10/25/2015 FINDINGS: Chronic lung changes are seen with increased left basal lung markings. No focal consolidation or pleural effusions. Cardiomegaly is noted with atherosclerosis. Degenerative changes of the spine are noted. IMPRESSION: Chronic lung changes and increased left basal lung markings also favoring chronic etiology. Otherwise no focal consolidation identified Cardiomegaly and atherosclerotic vascular disease.
--- NOTE | 2016-08-25 12:38 | General Progress Note ---
Subjective - Review of Systems Service Date: 08/25/16 Events since last encounter: will see if GI can correct malfunction Objective - Results Result Diagrams: 08/25/16 06:25 08/25/16 06:25 Recent Labs: Laboratory Last Values WBC 6.6 Th/cmm (4.8-10.8) 08/25/16 06:25 RBC 3.87 Mil/cmm (3.80-5.80) 08/25/16 06:25 Hgb 12.2 gm/dL (12.6-17.4) L 08/25/16 06:25 Hct 34.7 % (39.0-49.0) L 08/25/16 06:25 MCV 89.7 fl (80-99) 08/25/16 06:25 MCH 31.4 pg (27.0-31.0) H 08/25/16 06:25 MCHC Differential 35.0 pg (28.0-36.0) 08/25/16 06:25 RDW 12.4 % (11.5-20.0) 08/25/16 06:25 Plt Count 175 Th/cmm (150-400) 08/25/16 06:25 MPV 8.8 fl 08/25/16 06:25 Neutrophils % 73.4 % (40.0-80.0) 08/25/16 06:25 Lymphocytes % 14.3 % (20.0-50.0) L 08/25/16 06:25 Monocytes % 9.0 % (2.0-10.0) 08/25/16 06:25 Eosinophils % 3.0 % (0.0-5.0) 08/25/16 06:25 Basophils % 0.3 % (0.0-2.0) 08/25/16 06:25 PT 20.3 SECONDS (9.5-11.5) H 08/25/16 06:25 INR 1.89 (0.5-1.4) H 08/25/16 06:25 Sodium 131 mEq/L (136-145) L 08/25/16 06:25 Potassium 3.9 mEq/L (3.5-5.1) 08/25/16 06:25 Chloride 98 mEq/L (98-107) 08/25/16 06:25 Carbon Dioxide 28.6 mEq/L (21.0-31.0) 08/25/16 06:25 Anion Gap 8.3 (7.0-16.0) 08/25/16 06:25 BUN 12 mg/dL (7-25) 08/25/16 06:25 Creatinine 0.5 mg/dL (0.7-1.3) L 08/25/16 06:25 Est GFR ( Amer) TNP 08/25/16 06:25 Est GFR (Non-Af Amer) TNP 08/25/16 06:25 BUN/Creatinine Ratio 24.0 08/25/16 06:25 Glucose 112 mg/dL (70-105) H 08/25/16 06:25 POC Glucose 102 MG/DL (70 - 105) 08/24/16 09:59 Calcium 8.8 mg/dL (8.6-10.3) 08/25/16 06:25 Total Bilirubin 0.5 mg/dL (0.3-1.0) 08/25/16 06:25 AST 18 U/L (13-39) 08/25/16 06:25 ALT 13 U/L (7-52) 08/25/16 06:25 Alkaline Phosphatase 88 U/L (34-104) 08/25/16 06:25 Troponin I < 0.01 ng/mL (0.01-0.05) L 08/23/16 22:22 Total Protein 6.3 gm/dL (6.0-8.3) 08/25/16 06:25 Albumin 3.4 gm/dL (4.2-5.5) L 08/25/16 06:25 Globulin 2.9 gm/dL 08/25/16 06:25 Albumin/Globulin Ratio 1.2 (1.0-1.8) 08/25/16 06:25 Triglycerides 135 mg/dL (<150) 08/23/16 22:22 Cholesterol 154 mg/dL (<200) 08/23/16 22:22 LDL Cholesterol Direct 95 mg/dL (75-193) 08/23/16 22:22 HDL Cholesterol 43 mg/dL (23-92) 08/23/16 22:22 TSH 2.28 uIU/ml (0.34-5.60) 08/23/16 22:22 Phenytoin 14.5 ug/ml (10.0-20.0) 08/24/16 06:55 Valproic Acid 27.8 ug/mL (50.0-100.0) L 08/24/16 06:55 - Physical Exam Vitals and I&O: Vital Signs Temp 97.7 F 08/25/16 03:57 Pulse 63 08/25/16 03:57 Resp 18 08/25/16 03:57 BP 114/77 08/25/16 03:57 Pulse Ox 96 08/25/16 03:57 Intake & Output 08/24/16 08/25/16 08/25/16 18:59 06:59 18:59 Weight (lbs) 86.183 kg Other: # Voids 3 Active Medications: Current Medications Acetaminophen (Tylenol 650mg/20.3ml Suspension) 650 mg GT Q4HR PRN PRN Reason: Pain (Mild) Stop: 10/23/16 08:26 Bisacodyl (Dulcolax 10 Mg Supp) 10 mg RC DAILY PRN PRN Reason: Constipation Stop: 10/23/16 08:26 Clonidine HCl (Catapres) 0.1 mg GT Q8HR PRN PRN Reason: to maintain SBP below 160 Stop: 10/23/16 08:26 Dextrose/Sodium Chloride (D5-0.9%Ns) 1,000 mls @ 50 mls/hr IV .Q20H [facility] Stop: 10/23/16 08:29 Last Admin: 08/25/16 01:41 Dose: 50 mls/hr Levetiracetam (Keppra) 750 mg GT Q12HR [facility] Stop: 10/23/16 08:59 Last Admin: 08/24/16 10:50 Dose: Not Given Magnesium Hydroxide (Milk Of Magnesia) 30 ml GT DAILY PRN PRN Reason: IF NO BM IN TWO DAYS Stop: 10/23/16 08:26 Miscellaneous (Warfarin Sodium [Coumadin]) 6.5 mg GT QPM [facility] Stop: 10/23/16 16:59 Last Admin: 08/24/16 17:28 Dose: Not Given Phenytoin (Dilantin) 300 mg GT BID [facility] Stop: 10/23/16 08:59 Last Admin: 08/25/16 09:41 Dose: Not Given Sodium Phosphate (Fleet Enema) 135 ml RC DAILY PRN PRN Reason: IF MOM OR DULCOLAX INEFFECTIVE Stop: 10/23/16 08:26 Valproate Sodium (Depakene) 500 mg GT Q12H [place] PRN Reason: Protocol Stop: 10/23/16 08:59 Warfarin Sodium (Coumadin) 5.5 mg GT QPM [place] PRN Reason: Protocol Stop: 10/23/16 16:59 Last Admin: 08/24/16 17:28 Dose: Not Given - Procedures Procedures: Procedures Procedure Code Date CHANGE FEEDING DEVICE IN UP INTEST TRACT, LOGGING OPERATIONS INSPECTOR APPROACH [id number] 07/12/16 CHANGE GASTROSTOMY TUBE 57561 07/12/16 CLOSURE SKIN & SUBCUTANEOUS NEC 86.59 03/07/12 GROUP PSYCHOTHERAPY 07880 10/25/15 GROUP PSYCHOTHERAPY [id number] 10/25/15 IMMUNIZATION ADMIN 62405 07/30/13 INSERT INDWELLING CATH 57.94 01/31/10 INSERT TEMP BLADDER CATH 72604 01/31/10 OTHER GROUP THERAPY 94.44 02/23/12 RECREATIONAL THERAPY 93.81 02/23/12 RPR F/E/E/N/L/M 2.6-5.0 [place] [address] 03/07/12 VACCINATION NEC 99.55 07/30/13 VACCINE TOXOID 95421 07/30/13 Assessment/Plan - Problem List Patient Problems: All Active Problems GASTRIC TUBE DISLODGEMENT (Acute) Pneumonia (Active) J18.9 Psychiatric disorder (Acute) F99 The administrative codes within the [employer] content you are accessing may have as of 09/13/2015. Please contact your IT Dept/Help Desk and request the latest Regulatory release be installed. IT Dept/Help Desk- Please refer to our FAQ page ([email or web address]) or contact [employer] Customer Support at [email or web address] (Acute) Nutritional Asmnt/Malnutr-PDOC - Dietary Evaluation Malnutrition Findings (Please click <Entered> for more info): Nutritional Asmnt/Malnutrition Start: 08/25/16 09: 33 Text: Status: Complete Freq: Document 08/25/16 09:33 GSUN (Rec: 08/25/16 09:54 GSUN [email or web address]) Nutritional Asmnt/Malnutrition Patient General Information Nutritional Screening High Risk Screening Diagnosis Malfunctioning g-tube Pertinent Medical Hx/Surgical Hx HTN, DM, CAD, CHF, asthma, COPD, TIA, CVA, dementia Subjective Information 85 year old male from SNF, admitted for g-tube malfunction. Pt is scheduled g -tube replacement today 08/25. Pt was awake, mumbling nonsensically, moving all extremities. No significant fat/muscle wasting noted. Unable to obtain CBW, bedscale not properly calibrated. [facility] order: Nutren 2.0 at 50ml/hr x 20hrs, 280ml water flush q4hrs. Current Diet Order/ Nutrition Support Currently no order Pertinent Medications Dulcolax, D5, MOM, Fleet Enema , Coumadin Pertinent Labs Reviewed. Nutritional Hx/Data Height 1.73 m Height (Calculated Centimeters) 172.7 Current Weight (lbs) 86.183 kg Weight (Calculated Kilograms) 86.2 Weight (Calculated Grams) 02397.6 [place] Body Weight 154lb Weight Status Overweight GI Symptoms Food Allergies No Cultural/Ethnic/Episcopalian Belief Unknown. Usual diet at home Refer to subjective. Skin Integrity/Comment: [place] 14. Estimated Nutritional Goals BEE in Kcals: Adj wt of IBW Calories/Kcals/Kg AdjIBW 163lb/74kg Kcals Calculated 1852-2220kcal (25-30kcal/kg) Protein: Adj wt of IBW Protein g/kg: AdjIBW 163lb/74kg Protein Calculated 74-89g (1-1.2g/kg) Fluid: ml 2220-2590ml (30-35ml/kcal) Nutritional Problem 1. Problem Problem Inadequate energy and protein intake related to Etiology g-tube malfunction aeb Signs/Symptoms: awaiting g-tube replacement scheduled today, no current diet order Intervention/Recommendation Comments 1. Recommend Nutren 2.0 at 45ml/hr continuous with 250ml water flush q4hrs. Tube feeding to provide 1080ml total volume, 2160kcal, 91g protein, 747ml free water. Expected Outcomes/Goals Expected Outcomes/Goals 1. Pt to meet 100% estimated nutritional needs on tube feeding with tolerance.
[2016-08-25] MEDS ORDERED: Haloperidol Lactate 5 mg/mL 1mL Vial IM PRN (17:17)
[2016-08-25] MEDS ORDERED: IOHEXOL 300MG/ML 50 ML VIAL ONE (18:41)
--- NOTE | 2016-08-25 19:41 | Operative Report ---
PROCEDURE: G-tube change. REFERRING PHYSICIAN: Dr. Vazquez Gunn. REASON FOR PROCEDURE: Malfunctioning G-tube. PREOPERATIVE DIAGNOSIS: Malfunctioning G-tube with a Martinez tube that is in place. POSTOPERATIVE DIAGNOSIS: New 18-Jordanian gastrostomy tube replaced. MEDICATIONS: None. DESCRIPTION OF PROCEDURE: The patient was placed on his back. The old Martinez tube, which was serving as a G-tube, which was keeping it open, was removed. The internal balloon apparently was not inflated and it was removed by traction method and this was very easy. The 18-Jordanian gastrostomy tube was then lubricated at the tip and inserted through the gastrocutaneous fistula entering the stomach lumen. Internal balloon was inflated with 15 mL of sterile saline. Outer flange was secured in position. Procedure was then completed. COMPLICATIONS: None. FINDINGS: New 18-Jordanian gastrostomy tube placed. RECOMMENDATIONS: 1. KUB Gastrografin confirmed placement in stomach. 2. If it is in stomach, may begin using it. 3. Check residual every 6 hours and hold if greater than 100 mL. 4. Continue with abdominal binder. Thank you for allowing me to participate. Please call me if any questions. JOB# [id number]
--- NOTE | 2016-08-25 20:25 | Consultation ---
REASON FOR CONSULTATION: Psych evaluation. HISTORY OF PRESENT ILLNESS: This is an 85-year-old male who presented to the hospital from a shelter facility for malfunctioning G-tube. No noted fever or chills, but staff noting he has been combative, agitated, ____ staff, [facility]. On [id number], the patient AO x 0, confused, mumbling nonsensically, I cannot understand him. Information from chart review and staff. PAST PSYCHIATRIC HISTORY: Unknown. It is unclear if he has dementia diagnosis, but it is listed that he does on the H and P. ALLERGIES: Penicillin. FAMILY HISTORY: Noncontributory. SOCIAL HISTORY: Unclear, but he does reside at [facility] in [place]. There is a brother ____. Family involvement unclear. It is unclear where he was born for example as well. MENTAL STATUS EXAMINATION: Stated age, a little eye contact, psychomotorically accelerated, restless, in restraints. Mood, not answering. Affect, flat. Thought processes were confused and disoriented. Thought content, difficult to assess fully. No suicidal gestures. Insight and judgment diminished. Concentration diminished. PROVISIONAL DIAGNOSIS: Dementia with behavioral disturbances, likely overlying delirium. RECOMMENDATIONS AND PLAN: Discussed with staff. Medications were reviewed. The patient currently on Depakote. We will start also on a p.r.n. dosing of Seroquel and also intramuscular Haldol low dose for agitation. Treatment goal this time is to keep the patient calm. We will continue to monitor and follow up. [facility]# [id number]
--- NOTE | 2016-08-26 09:25 | Diagnostic Imaging Report ---
Upper GI limited for G-tube check Comparison: Upper GI exam on 08/24/2016 Technique/procedure: Rod Buster Helper view demonstrates copious stool throughout the colon. A percutaneous feeding tube is noted. Degenerative changes of the spine are noted. The following images demonstrate contrast opacification of the stomach and small bowel loops. IMPRESSION: Intraluminal confirmation of patient's percutaneous feeding tube. Copious amount of stool. Please correlate clinically for constipation.
[2016-08-26] MEDS: Levetiracetam 500 mg/5mL 5mL UDC GT SCH (09:56)
--- NOTE | 2016-08-26 18:09 | Consultation ---
HISTORY OF PRESENT ILLNESS: The patient is 85-year-old. Neurology consult. The patient unable to give any history, lying in bed, initially had his eyes closed, but then he opened them. Nonverbal. Would not even give me his name. The patient apparently had G-tube. The patient had pulled the G-tube up. The patient was here for malfunction and replacement of the G-tube. PAST MEDICAL HISTORY: The patient has history of severe dementia. History of hypertension, diabetes, coronary artery disease, CHF, asthma, COPD, previous strokes. SOCIAL HISTORY: The patient is in a facility, does not smoke or drink. REVIEW OF SYSTEMS: Not obtainable. ALLERGIES: PENICILLIN. MEDICATIONS: Clonidine, haloperidol 1 mg q. 4 hours p.r.n., Keppra 750 q. 12 hours, Dilantin 300 mg G-tube b.i.d., Seroquel 25 at bedtime, Seroquel 12.5 b.i.d., Depakote 500 mg q. 12 hours, Coumadin. PHYSICAL EXAMINATION: VITAL SIGNS: Temperature 99.0, blood pressure 130/85, pulse is around 84. NECK: Supple. No bruits. HEART: Sounds S1, S2. LUNGS: Clear. ABDOMEN: Soft. NEUROLOGIC: The patient lying in bed. Eyes closed, but then he opened his eyes. Pupils react. I do not know about his visual acuity or about any field defect. Tends to look to the right and left, but would not focus on me. The patient will lift both arms up. Limited movement of the legs, withdrawal to stimulation. The patient's reflex is -1 in upper extremity ____, absent at the knees and ankles. INVESTIGATIONS: No CT scan of the head. LABORATORY DATA: WBC 6.6, hemoglobin 12.2, platelets normal. INR 1.89. Sodium 136. The patient's Dilantin level 14.5. Valproic acid 27.8. IMPRESSION: 1. Encephalopathy. 2. Dementia. 3. Dysphagia. 4. Seizure. 5. Psychosis. 6. Previous history of strokes. MANAGEMENT: Continue present treatment at the moment. JOB# [id number]
--- NOTE | 2016-08-30 11:39 | Discharge Summary ---
PRELIMINARY DIAGNOSES: 1. Malfunctioning G-tube. 2. Dementia. 3. Dehydration. 4. Hypertension. 5. Diabetes mellitus. 6. Coronary artery disease. 7. Congestive heart failure. 8. Asthma. 9. Chronic obstructive pulmonary disease. 10. Cerebrovascular accident. 11. Transient ischemic attack. 12. Dementia. 13. Hyponatremia. DISCHARGE DIAGNOSES: 1. Replacement of G-tube. 2. Dementia. 3. Dehydration, now resolved. 4. Hypertension. 5. Diabetes mellitus. 6. Coronary artery disease. 7. Congestive heart failure. 8. Asthma. 9. Chronic obstructive pulmonary disease. 10. Cerebrovascular accident. 11. Transient ischemic attack. 12. Dementia. 13. Hyponatremia, now corrected. BRIEF HISTORY OF PRESENT ILLNESS: This is an 85-year-old male who presents to [facility] ER from snf facility for malfunctioning G-tube. The patient had no fever, chills, nausea or vomiting. The patient apparently pulled and removed his G-tube while at the [place] [facility] and was subsequently sent to [facility] ER for reinsertion. PAST MEDICAL HISTORY: Includes hypertension, diabetes mellitus, coronary artery disease, CHF, asthma, COPD, CVA, TIA, and dementia. Initial labs showed a white count of 5.4, hemoglobin 13.2, hematocrit 38.4, platelets were noted to be 195,000. The patient was subsequently admitted for further evaluation and treatment. HOSPITAL COURSE: The patient improved during his hospital stay. The patient was seen and evaluated by GI who replaced the G-tube. The patient was restarted on G-tube feeding, which he was able to tolerate. The patient's sodium initially was noted to be 128. This was repeated on August 24, which had increased to 133 and his sodium on August 25 was 131. He was subsequently discharged in stable condition and was to continue his current medications at the [place] [facility]. JOB# [id number]
== END 2016-08-26 13:25 | DRG 393 ==
LOC: ER 21:57 → MSI 08-24 03:30
PROVIDERS: ADMIT Family Medicine; ATTEND Family Medicine
PROC: 0D20XUZ Change Feeding Device in Upper Intestinal Tract, External Approach (ICD-10-PCS; principal; 2016-08-25)
DX: K94.23 Gastrostomy malfunction (principal); G93.40 Encephalopathy, unspecified; F03.91 Unspecified dementia, unspecified severity, with behavioral disturbance; R13.10 Dysphagia, unspecified; E87.1 Hypo-osmolality and hyponatremia; I50.9 Heart failure, unspecified; I11.0 Hypertensive heart disease with heart failure; R56.9 Unspecified convulsions; E86.0 Dehydration; E11.9 Type 2 diabetes mellitus without complications; I25.10 Atherosclerotic heart disease of native coronary artery without angina pectoris; J45.909 Unspecified asthma, uncomplicated; J44.9 Chronic obstructive pulmonary disease, unspecified; F29 Unspecified psychosis not due to a substance or known physiological condition; Y83.8 Other surgical procedures as the cause of abnormal reaction of the patient, or of later complication, without mention of misadventure at the time of the procedure; Y92.89 Other specified places as the place of occurrence of the external cause; Z86.73 Personal history of transient ischemic attack (TIA), and cerebral infarction without residual deficits
CPT/HCPCS: 36415-UA; 71010-TC; 80053-TC; 80061-TC; 80164-TC; 80185-TC; 82948-90; 84443-TC; 84484-TC; 85025-TC; 85610-TC; 93005; J7042; Q9967; Z7610

== ENCOUNTER 2016-11-21 22:19 | Emergency (ER) | payer MEDICARE, MEDICAID ==
--- NOTE | 2016-11-21 22:43 | ED Physician Chart ---
Chief Complaint/HPI - Patient Information Date Seen:: 11/21/16 Time Seen:: 22:25 Chief Complaint:: g tube displacement History of Present Illness:: Patient is [facility] with a complaint of G -tube dislodgment noticed earlier this evening. Patient has a pre-existing mental illness and is unable to give any pertinent history this evening. History is obtained from the ambulance drivers and records from the [facility]. Allergies:: Allergies Allergy/AdvReac Type Severity Reaction Status Date / Time Penicillins Allergy Verified 02/29/16 17:07 Historian:: EMS, Medical Records Review:: Nurse's Note Reviewed, EMS run form Reviewed Review of Systems - Review of Systems General/Constitutional: Other (no other review of systems is available secondary to mental illness) Past Medical History - Past Medical History Past Medical History: Asthma/COPD, Dementia Social History: Care Facility Psychiatricy History: Dementia Medication: Reviewed Family Medical History - Family Member Father History Unknown: Yes Ethnicity: Non- Living Status: Unknown Physical Exam - Physical Examination Other Gen/Cons comments:: Patient is an 85-year-old white male lying on the gurney moaning incoherently but otherwise appears in no apparent distress. Patient is chronically ill- appearing but vital signs are stable, mucous membranes are moist, and he is seemingly comfortable if left alone. Patient becomes more agitated when examined but allows inspection palpation of the abdomen. He has a G-tube stoma in the midline of the abdomen which appears somewhat dry with no discharge. Bowel sounds are positive and the abdomen is slightly distended and tympanitic but does not appear tender. Labs/Radiology/EKG Results - Lab Results Results: Small bowel follow-through was obtained with Gastrografin injected into the G- tube which shows appropriate placement location. Assessment - Procedures Procedures:: Procedure: A 20 Persian G-tube was coated in K-Y jelly and gently reinserted into the abdominal wall stoma. Placement required persistent internal pressure and rotation of the G-tube tip in order to find the pre-existing tract. After placement the G-tube was filled with 15 cm of air and pulled back and subsequently taped in place. The patient is awaiting confirmation of G-tube placement with contrast and a plain film of the abdomen. Patient tolerated procedure well and there was only a small amount of bright red blood noticed at the reinsertion site. Informed Consent: Procedure/risk/benefits explained by MD: No ED Septic Shock - . Is Septic Shock (SBP<90, OR Lactate>4 mmol\L) present?: No Reassessment (Disposition) - Reassessment Reassessment Condition:: Unchanged - Diagnosis Diagnosis:: Dislodgment of G-tube with replacement procedure in emergency room - Aftercare/Follow up Instructions Aftercare/Follow-Up Instructions:: Refer to Discharge Instructions - Patient Disposition Discharge/Transfer:: [facility] - SNF Condition at Disposition:: Improved ED Discharge Plan - Patient Disposition Admit/Discharge/Transfer: Discharge/Transfered to SNF Condition at Disposition: Stable
[2016-11-21] MEDS ORDERED: Diatrizoate Meglumine/Diatri 30 mL Sol ONE (23:35)
--- NOTE | 2016-11-22 10:36 | Diagnostic Imaging Report ---
Upper GI with Gastrografin HISTORY: G-tube check COMPARISON: Previous upper GI examination on 08/25/2016 FINDINGS: Animal Pathology Teacher view demonstrates generalized gaseous filled loops of bowel. There appears to be distal thecal impression. The second image demonstrates contrast opacification of the stomach and small bowel loops. IMPRESSION: Intraluminal confirmation of patient's percutaneous gastric feeding tube. Probable mild ileus with distal fecal impaction.
== END 2016-11-22 02:01 ==
LOC: ER 22:19
DX: Z43.1 Encounter for attention to gastrostomy (principal); J44.9 Chronic obstructive pulmonary disease, unspecified; J45.909 Unspecified asthma, uncomplicated; Z88.0 Allergy status to penicillin
CPT/HCPCS: 74250-TC; Z7502; Z7610

== ENCOUNTER 2017-01-18 10:35 | Inpatient (IN) | payer MEDICARE, MEDICAID ==
[~2017-01-18 10:35] MED LIST: Diatrizoate Meglumine/Diatri 30 mL Sol PO ONE
[2017-01-18 11:10] LABS: % BASOPHILS 0.6 % (0.0-2.0); % EOSINOPHILS 0.1 % (0.0-5.0); % MONOCYTES 6.2 % (2.0-10.0); % NEUTROPHILS 87.1 % (40.0-80.0); HEMOGLOBIN 13.4 gm/dL (12.6-17.4); MEAN CELL VOLUME 90.9 fl (80-99); MEAN CORPUSCULAR HEMOGLOBIN 31.1 pg (27.0-31.0); MEAN CORPUSCULAR HGB CONC 34.2 pg (28.0-36.0); MEAN PLATELET VOLUME 8.8 fl; NEUTROPHILE ABSOLUTE 11.9 Th/cmm (1.8-8.0); PLATELET COUNT 200 Th/cmm (150-400); RED BLOOD COUNT 4.31 Mil/cmm (3.80-5.80); RED CELL DISTRIBUTION WIDTH 12.6 % (11.5-20.0)
[2017-01-18 11:13] LABS: WHITE BLOOD COUNT 13.6 Th/cmm (4.8-10.8)
[2017-01-18 11:14] LABS: HEMATOCRIT 39.2 % (39.0-49.0)
[2017-01-18 11:18] LABS: INR 1.06 (0.5-1.4)
--- NOTE | 2017-01-18 11:28 | ED Physician Chart ---
Chief Complaint/HPI - Patient Information Date Seen:: 01/18/17 Time Seen:: 11:00 Chief Complaint:: G-TUBE DISPLACEMENT History of Present Illness:: THIS IS AN 86 YO MALE LONG TERM CHRONICALLY ILL WHO WAS SENT TO THIS ER FOR A G-TUBE PLACEMENT. 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 Allergies:: Allergies Allergy/AdvReac Type Severity Reaction Status Date / Time Penicillins Allergy Verified 02/29/16 17:07 Vitals:: Vital Signs - 8 hr 01/18/17 10:53 Temp 98.5 F HR 91 RR 22 BP 149/81 O2 Sat % 93 Historian:: Medical Records Review:: Nurse's Note Reviewed, Old Chart Reviewed Review of Systems - Review of Systems General/Constitutional: No fever, No chills, No weight loss, No weakness, No diaphoresis, No edema, No loss of appetite, Other (THIS PATIENT IS UNABLE TO GIVE A REVIEW OF SYSTEMS.) Skin: No skin lesions, No rash, No bruising Head: No headache, No light-headedness Eyes: No loss of vision, No pain, No diplopia ENT: No earache, No nasal drainage, No sore throat, No tinnitus Neck: No neck pain, No swelling, No thyromegaly, No stiffness, No mass noted Cardio Vascular: No chest pain, No palpitations, No PND, No orthopnea, No edema Pulmonary: No SOB, No cough, No sputum, No wheezing GI: No nausea, No vomiting, No diarrhea, No pain, No melena, No hematochezia, No constipation, No hematemesis G/U: No dysuria, No frequency, No hematuria Musculoskeletal: No bone or joint pain, No back pain, No muscle pain Endocrine: No polyuria, No polydipsia Psychiatric: No prior psych history, No depression, No anxiety, No suicidal ideation Hematopoietic: No bruising, No lymphadenopathy Allergic/Immuno: No urticaria, No angioedema Neurological: No syncope, No focal symptoms, No weakness, No paresthesia, No headache, No seizure, No dizziness, No confusion, No vertigo Past Medical History - Past Medical History Obtainable: Yes Past Medical History: HTN, CAD, CHF, Asthma/COPD, CVA/TIA, Seizures, Arthritis, Dementia Family History: None Social History: Non Smoker, No Alcohol, No Drug Use Surgical History: None Psychiatricy History: Dementia Medication: Reviewed Family Medical History - Family Member Father History Unknown: Yes Ethnicity: Non- Living Status: Unknown Physical Exam - Physical Examination General/Constitutional: Awake, Well-developed, well-nourished, Alert, No distress, GCS 15, Non-toxic appearing, Ambulatory Other Gen/Cons comments:: NON-VERBAL AND DISORIENTED TIMES FOUR. Head: Atraumatic Eyes: Lids, conjuctiva normal, PERRL, EOMI Skin: Nl inspection, No rash, No skin lesions, No ecchymosis, Well hydrated, No lymphadenopathy ENMT: External ears, nose nl, Nasal exam nl, Lips, teeth, gums nl Neck: Nontender, Full ROM w/o pain, No JVD, No nuchal rigidity, No bruit, No mass, No stridor Respiratory: Nl effort/Exclusion, Clear to Auscultation, No Wheeze/Rhonchi/Rales Cardio Vascular: RRR, No murmur, gallop, rubs, NL S1 S2 GI: No tenderness/rebounding/guarding, No organomegaly, No hernia, Normal BS's, Nondistended, No mass/bruits, No McBurney tenderness Other GI comments:: LARGE ABDOMENT WITH A ROLDAN COMING OUT OF A G-TUBE OPENING. : No CVA tenderness Extremities: No tenderness or effusion, Full ROM, normal strength in all extremities, No edema, Normal digits & nails Neuro/Psych: Alert/oriented, DTR's symmetric, Normal sensory exam, Normal motor strength, Judgement/insight normal, Mood normal, Normal gait, No focal deficits Other Neuro/Psych comments:: GENERALIZE WEAKNESS Misc: normal gait, Normal back, No paraspinal tenderness Labs/Radiology/EKG Results - Lab Results Results: Laboratory Tests 01/18/17 10:55 WBC 13.6 H D RBC 4.31 Hgb 13.4 Hct 39.2 D MCV 90.9 MCH 31.1 H MCHC Differential 34.2 RDW 12.6 Plt Count 200 MPV 8.8 Neutrophils % 87.1 H Lymphocytes % 6.0 L Monocytes % 6.2 Eosinophils % 0.1 Basophils % 0.6 - Radiology Results Results: CHEST X-RAY = NAD G-TUBE VERIFICATION = IN THE STOMACH ED Septic Shock - . Is Septic Shock (SBP<90, OR Lactate>4 mmol\L) present?: No - <6hrs of presentation: Vital Signs: Vital Signs - 8 hr 01/18/17 10:53 Temp 98.5 F HR 91 RR 22 BP 149/81 O2 Sat % 93 Reassessment (Disposition) - Diagnosis Diagnosis:: HYPOXEMIA DEHYDRATION ELEVATED WBC DILANTIN LEVEL LOW DEPOKOTE LEVEL LOW - Patient Disposition Discharge/Transfer:: Acute Care w/in this hosp Admitting Medical Physician:: Vazquez Gunn Condition at Disposition:: Unchanged ED Discharge Plan - Patient Disposition Admit/Discharge/Transfer: Acute Care w/in this hosp Condition at Disposition: Unchanged
[2017-01-18 11:30] LABS: ALB/GLOB RATIO 1.2 (1.0-1.8); ALKALINE PHOSPHATASE 89 U/L (34-104); BILIRUBIN,TOTAL 0.4 mg/dL (0.3-1.0); BUN - UREA NITROGEN 22 mg/dL (7-25); CARBON DIOXIDE 29.3 mEq/L (21.0-31.0); CHLORIDE 92 mEq/L (98-107); CREATININE - SERUM 0.5 mg/dL (0.7-1.3); GLUCOSE 128 mg/dL (70-105); POTASSIUM SERUM 4.3 mEq/L (3.5-5.1); SGOT 17 U/L (13-39); SGPT/ALT 17 U/L (7-52); SODIUM SERUM 126 mEq/L (136-145)
[2017-01-18 11:42] LABS: URINE BILIRUBIN NEGATIVE (NEGATIVE); URINE BLOOD TRACE (NEGATIVE); URINE GLUCOSE (UA) NEGATIVE (NEGATIVE); URINE KETONE NEGATIVE (NEGATIVE); URINE PH 7.5 (4.6 - 8.0); URINE PROTEIN TRACE mg/dL (NEGATIVE); URINE UROBILINOGEN 0.2 E.U./dL (0.2 - 1.0)
[2017-01-18 11:45] LABS: URINE COLOR YELLOW
[2017-01-18 11:49] LABS: URINE BACTERIA OCCASIONAL /hpf (NONE SEEN); URINE EPITHELIAL CELLS FEW /lpf (FEW); URINE RBC 0-2 /hpf (0-5)
[2017-01-18 12:08] LABS: CHOLESTEROL 140 mg/dL (<200); TRIGLYCERIDES 56 mg/dL (<150)
[2017-01-18 12:29] LABS: ABG SOURCE Arterial; ALLEN TEST Positive; BE(B) 10.7 mEq/L (-3.0-3.0); FIO2 21; HCO3 33.2 mEq/L (20.0-26.0); pH 7.48 (7.35-7.45)
--- NOTE | 2017-01-18 13:08 | Diagnostic Imaging Report ---
Exam: Chest x-ray portable one view HISTORY: Shortness of breath. Findings: Portable examination of the chest upright at 1143 hours was reviewed no prior studies available for comparison. Bony thorax is intact. Mediastinal structures midline the heart is prominent. The aortic arch calcified. No acute pulmonic infiltrates or effusions are noted. IMPRESSION: No acute disease.
--- NOTE | 2017-01-18 13:10 | Diagnostic Imaging Report ---
Exam: Degenerative gastrostomy tube placement. HISTORY: Gastrostomy tube placement. Multiple views of the abdomen reviewed with injection of contrast material into the gastrostomy tube demonstrates normal opacification of the stomach. IMPRESSION: Gastrostomy tube in the stomach.
[2017-01-18] MEDS ORDERED: Sodium Chloride 0.9% 1,000 ML IV SCH (14:20)
[2017-01-18] MEDS ORDERED: Magnesium Hydroxide (MOM) 30 mL UDC GT PRN (14:22)
[2017-01-18] MEDS ORDERED: Fleet Enema 135 mL RC PRN (14:22)
[2017-01-18] MEDS ORDERED: Pneumococcal Vaccine 0.5 mL Vial IM ONE (16:07)
[2017-01-18] MEDS ORDERED: VTE Chemical Prophylaxis Screen/Admission MC PRN (16:27)
[2017-01-18] MEDS ORDERED: WARFARIN SODIUM GT SCH (17:00)
[2017-01-18] MEDS ORDERED: WARFARIN SODIUM PO SCH (17:00)
[2017-01-18] MEDS ORDERED: INSULIN ASPART, RECOMBINANT 100 UNITS/ML SUBQ SCH (17:00)
[2017-01-18] MEDS: Levetiracetam 500 mg/5mL 5mL UDC GT SCH (21:50)
[2017-01-18] MEDS ORDERED: Albuterol/Ipratropium Neb 3 ML AERS HHN SCH (23:10)
[2017-01-19] MEDS: INSULIN ASPART SLIDING SCALE 100 UNITS/ML UNIT SUBQ SCH ×4 (00:33→18:46)
[2017-01-19] MEDS: Albuterol/Ipratropium Neb 3 ML AERS HHN SCH ×4 (01:44→19:35)
--- NOTE | 2017-01-19 03:38 | Admit Criteria Form ---
Admit Criteria Forms - Admit Criteria Diagnosis: HYPONATREMIA; HYPERNATREMIA; HYPOKALEMIA; HYPERKALEMIA; HYPOCALCEMIA; HYPERCALCEMIA Clinical Indications for Inpatient Care (Place 'X' for any and all applicable criteria): Ongoing inpatient care may be indicated for ANY ONE of the following [G](1)(2)(3 )(5): [X ]I. Hyponatremia with ANY ONE of the following: [X ]a) Sodium less than 130 mEq/L (mmol/L) (new) (6)(22) [ ]b) Sodium less than 135 mEq/L (mmol/L) with ANY ONE of the following: [ ]i) Severe medical etiology requiring inpatient management (eg, heart failure, hypovolemia) [ ]ii) Altered mental status [ ]iii) Seizures [ ]II. Hypernatremia with ANY ONE of the following: [ ]a) Sodium greater than 155 mEq/L (mmol/L) [ ]b) Sodium greater than 150 mEq/L (mmol/L) with ANY ONE of the following: [ ] i) Altered mental status [ ]ii) Seizures [ ]iii) Severe medical etiology (eg, hypovolemia, diabetes insipidus) [ ]iv) Severe weakness [ ]v) Severe medical etiology (eg, hemolysis, infection, drug overdose) [ ]III. Hypokalemia with ANY ONE of the following: [ ]a) Potassium less than 2.5 mEq/L (mmol/L) despite outpatient and emergency treatment [ ]b) Potassium less than 3.0 mEq/L (mmol/L) with ANY ONE of the following: [ ]i) Weakness [ ]ii) Cardiac abnormality (eg, arrhythmia, conduction disturbance) [ ]iii) Cardiac ischemia [ ]iv) Ileus [ ]v) Ongoing medical cause requiring inpatient management. ( e.g., acute renal wasting, SIADH) [ ]vi) Other severe symptoms [ ] IV. Hyperkalemia with ANY ONE of the following: [ ]a) Potassium greater than 6.5 mEq/L (mmol/L) [ ]b) Potassium greater than 5 mEq/L (mmol/L) with ANY ONE of the following: [ ]i) Severe ECG findings [H] [ ]ii) Acute worsening of renal failure (creatinine greater than 2.5 mg/dL (221 micromoles/L) or significant elevation for age and size) [ ] V. Hypocalcemia with ANY ONE of the following: [ ]a) Calcium less than 7 mg/dL (1.75 mmol/L) despite outpatient and emergency treatment(19) [ ]b) Calcium less than 8 mg/dL (2 mmol/L) with significant symptoms or findings; examples include: [ ]i) Cardiac abnormality (eg, arrhythmia or conduction disturbance) [ ]ii) Altered mental status [ ]iii) Seizures [ ]iv) Breathing difficulty [ ]v) Muscle spasms [ ]. Hypercalcemia with ANY ONE of the following: [ ]a) Calcium greater than 14 mg/dL (3.5 mmol/L) [ ]b) Calcium greater than 12 mg/dL (3 mmol/L) with ANY ONE of the following: [ ]i) Significant dehydration or hypovolemia as indicated by ANY ONE of the following(2): [ ]1. Clinically significant dehydration as indicated by ANY ONE of the following: [ ]A. Acute loss of weight from baseline (5% of body weight in adults, 9% in pediatric patients) [ ]B. Hemodynamic instability [ ]C. Acute renal failure [ ]D. Serum sodium greater than 150 mEq/L (mmol/L) [ ]2) Dehydration that is persistent indicated by ALL of the following: [ ]A. Oral rehydration therapy not tolerated or insufficient to adequately correct dehydration [ ]B. Appropriate intravenous treatment (eg, fluids ) does not readily correct dehydration ie, after 12 to 24 hours of treatment) [ ]ii) Significant symptoms or findings; examples include: [ ]1) Altered mental status [ ]2) Cardiac abnormality (eg, arrhythmia, conduction disturbance) [ ]3) Cardiac abnormality (eg, arrhythmia, conduction disturbance) The original [facility] content created by [employer] has been revised. The portions of the content which have been revised are identified through the use of italic text or in bold, and [facility] has neither reviewed nor approved the modified material. All other unmodified content is copyright [facility] Please see references footnoted in the original [facility] edition 2016 Admit Criteria Met?: Yes
[2017-01-19 07:16] LABS: % BASOPHILS 0.1 % (0.0-2.0); % EOSINOPHILS 1.8 % (0.0-5.0); % MONOCYTES 11.3 % (2.0-10.0); % NEUTROPHILS 70.8 % (40.0-80.0); HEMATOCRIT 36.3 % (39.0-49.0); HEMOGLOBIN 12.1 gm/dL (12.6-17.4); MEAN CELL VOLUME 93.2 fl (80-99); MEAN CORPUSCULAR HGB CONC 33.3 pg (28.0-36.0); MEAN PLATELET VOLUME 9.3 fl; NEUTROPHILE ABSOLUTE 5.8 Th/cmm (1.8-8.0); PLATELET COUNT 174 Th/cmm (150-400); RED BLOOD COUNT 3.89 Mil/cmm (3.80-5.80); RED CELL DISTRIBUTION WIDTH 12.6 % (11.5-20.0)
[2017-01-19 07:30] LABS: WHITE BLOOD COUNT 8.1 Th/cmm (4.8-10.8)
[2017-01-19 07:32] LABS: ALB/GLOB RATIO 1.2 (1.0-1.8); ALKALINE PHOSPHATASE 82 U/L (34-104); ANION GAP 8.3 (7.0-16.0); BILIRUBIN,TOTAL 0.4 mg/dL (0.3-1.0); BUN - UREA NITROGEN 24 mg/dL (7-25); CARBON DIOXIDE 29.8 mEq/L (21.0-31.0); CHLORIDE 96 mEq/L (98-107); CREATININE - SERUM 0.5 mg/dL (0.7-1.3); GLUCOSE 114 mg/dL (70-105); POTASSIUM SERUM 4.1 mEq/L (3.5-5.1); SGOT 17 U/L (13-39); SGPT/ALT 15 U/L (7-52); SODIUM SERUM 130 mEq/L (136-145)
[2017-01-19 08:04] VITALS: BP 136/55
[2017-01-19] MEDS: Levetiracetam 500 mg/5mL 5mL UDC GT SCH (08:35)
[2017-01-19] MEDS: cefTRIAXone 1 GM in Sodium Chloride 0.9% 50 ML IV SCH (08:36)
--- NOTE | 2017-01-19 08:37 | History and Physical ---
History of Present Illness - HPI Chief Complaint: Malfunctioning Gtube HPI: 86 year old male who presents from SNF to [facility] ER for malfunctioning gtube. Patient was seen and evaluated by the ER physician and was noted to have increase hypoxemia. He has a previous history of COPD, dysphagia, S/P Gtube placement, CHF and demential. His initial chest xray was negative. His WBC's was noted to be 13.6K and his Na+ was noted to be 126. He was subsequently admitted for further evaluation and treatment. 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: No Pertinent Hx, CVA, Dementia, Seizure, TIA GI: Report: No Pertinent Hx, Other (Dysphagia) Psych: Report: No Pertinent Hx, Other (dementia) Musculoskeletal: Report: No Pertinent Hx, Osteoarthritis, Weakness Rheumatologic: Report: No pertinent Hx Infectious Disease: Report: No Pertinent Hx Renal/: Report: No Pertinent Hx Endocrine: Report: No Pertinent Hx Dermatology: Report: No Pertinent Hx - Past Surgical History Past Surgical History: No pertinent Hx, Other (gastrostomy tube placement) Family Medical History - Family Member Father History Unknown: Yes Ethnicity: Non- Living Status: Unknown Mother History Unknown: Yes Social History Smoke: No Alcohol: None Drugs: None Lives: Usp - Medications Home Medications: Home Medication Medication Instructions Recorded Type Bisacodyl [Dulcolax 10 Mg Supp] 10 mg RC DAILY PRN #0 sup 07/14/16 Rx Fleet Enema 135 ml RC DAILY PRN #0 btl 07/14/16 Rx Acetaminophen 650 mg GT Q4HR PRN 08/23/16 History Levetiracetam [Keppra] 750 mg GT Q12HR 08/23/16 History Magnesium Hydroxide [Milk of 30 ml GT DAILY PRN 08/23/16 History Magnesia] Valproic Acid [Depakene] 500 mg GT Q12H 08/23/16 History cloNIDine HCl [Catapres] 0.1 mg GT Q8HR PRN 08/23/16 History Insulin Aspart, Recombinant 1 units SUBQ BID 11/21/16 History [NovoLOG] Phenytoin [Dilantin*] 300 mg GT TID 11/21/16 History Ascorbic Acid [Vitamin C] 500 mg PO DAILY 01/18/17 History Multivitamin [Multivitamins] 1 sgl GT DAILY 01/18/17 History Warfarin Sodium [Coumadin] 6.5 mg PO 1700 01/18/17 History Zinc Sulfate 220 mg PO DAILY 01/18/17 History - Allergies Allergies/Adverse Reactions: Allergies Allergy/AdvReac Type Severity Reaction Status Date / Time Penicillins Allergy Verified 02/29/16 17:07 Review of Systems - Review of Systems Constitutional: Report: No Significant Eyes: Report: No Significant ENT: Report: No Significant Respiratory: Report: No Significant Cardiovascular: Report: No Significant Gastrointestinal: Report: No Significant Genitourinary: Report: No Significant Musculoskeletal: Report: No Significant Skin: Report: No Significant Neurological: Report: No Significant Physical Exam - Physical Exam HEENT: Report: Ears Nose Throat within normal limits, Pharnyx within normal limits Neck: Report: Within normal limits Cardiovascular Systems: Report: +s1/s2 noted, Regular, Rate and Rhythm Respiratory: Report: Breath Sounds are within normal limits Abdomen: Report: Non-tender to palpation, PEG site is clean Back: Report: Inspection of back is within normal limits. Extremities: Report: Non-tender to palpation. Skin: Report: Color of skin is within normal limits Neuro/Psych: Report: Mood affect is within normal limits - Lab Results All Lab Results last 24 hours: Laboratory Last Values WBC 8.1 Th/cmm (4.8-10.8) D 01/19/17 06:25 RBC 3.89 Mil/cmm (3.80-5.80) 01/19/17 06:25 Hgb 12.1 gm/dL (12.6-17.4) L 01/19/17 06:25 Hct 36.3 % (39.0-49.0) L 01/19/17 06:25 MCV 93.2 fl (80-99) 01/19/17 06:25 MCH 31.0 pg (27.0-31.0) 01/19/17 06:25 MCHC Differential 33.3 pg (28.0-36.0) 01/19/17 06:25 RDW 12.6 % (11.5-20.0) 01/19/17 06:25 Plt Count 174 Th/cmm (150-400) 01/19/17 06:25 MPV 9.3 fl 01/19/17 06:25 Neutrophils % 70.8 % (40.0-80.0) 01/19/17 06:25 Lymphocytes % 16.0 % (20.0-50.0) L 01/19/17 06:25 Monocytes % 11.3 % (2.0-10.0) H 01/19/17 06:25 Eosinophils % 1.8 % (0.0-5.0) 01/19/17 06:25 Basophils % 0.1 % (0.0-2.0) 01/19/17 06:25 PT 11.0 SECONDS (9.5-11.5) 01/18/17 10:55 INR 1.06 (0.5-1.4) 01/18/17 10:55 PTT (Actin FS) 29.6 SECONDS (26.0-38.0) 01/18/17 10:55 Specimen Source Arterial 01/18/17 12:17 Sample Site Right Radial 01/18/17 12:17 pH 7.48 (7.35-7.45) H 01/18/17 12:17 pCO2 48.0 mmHg (35.0-45.0) H 01/18/17 12:17 pO2 65.0 mmHg (80.0-100.0) L 01/18/17 12:17 HCO3 33.2 mEq/L (20.0-26.0) H 01/18/17 12:17 Base Excess 10.7 mEq/L (-3.0-3.0) H 01/18/17 12:17 O2 Saturation 94.0 % (92.0-100.0) 01/18/17 12:17 Shamar Test Positive 01/18/17 12:17 Vent Rate NA 01/18/17 12:17 Inspired O2 21 01/18/17 12:17 Tidal Volume NA 01/18/17 12:17 PEEP NA 01/18/17 12:17 Pressure (ins/psv/peep) NA 01/18/17 12:17 Critical Value LZHANG 01/18/17 12:17 Sodium 130 mEq/L (136-145) L 01/19/17 06:25 Potassium 4.1 mEq/L (3.5-5.1) 01/19/17 06:25 Chloride 96 mEq/L (98-107) L 01/19/17 06:25 Carbon Dioxide 29.8 mEq/L (21.0-31.0) 01/19/17 06:25 Anion Gap 8.3 (7.0-16.0) 01/19/17 06:25 BUN 24 mg/dL (7-25) 01/19/17 06:25 Creatinine 0.5 mg/dL (0.7-1.3) L 01/19/17 06:25 Est GFR ( Amer) TNP 01/19/17 06:25 Est GFR (Non-Af Amer) TNP 01/19/17 06:25 BUN/Creatinine Ratio 48.0 01/19/17 06:25 Glucose 114 mg/dL (70-105) H 01/19/17 06:25 POC Glucose 104 MG/DL (70 - 105) 01/19/17 06:58 Whole Bld Lactic Acid 0.76 mmol/L (0.60-1.99) 01/18/17 10:55 Calcium 9.0 mg/dL (8.6-10.3) 01/19/17 06:25 Total Bilirubin 0.4 mg/dL (0.3-1.0) 01/19/17 06:25 AST 17 U/L (13-39) 01/19/17 06:25 ALT 15 U/L (7-52) 01/19/17 06:25 Alkaline Phosphatase 82 U/L (34-104) 01/19/17 06:25 Troponin I 0.01 ng/mL (0.01-0.05) 01/18/17 10:55 B-Natriuretic Peptide 83.4 pg/mL (5.0-100.0) 01/18/17 10:55 Total Protein 6.3 gm/dL (6.0-8.3) 01/19/17 06:25 Albumin 3.4 gm/dL (4.2-5.5) L 01/19/17 06:25 Globulin 2.9 gm/dL 01/19/17 06:25 Albumin/Globulin Ratio 1.2 (1.0-1.8) 01/19/17 06:25 Triglycerides 56 mg/dL (<150) 01/18/17 10:55 Cholesterol 140 mg/dL (<200) 01/18/17 10:55 LDL Cholesterol Direct 92 mg/dL (75-193) 01/18/17 10:55 HDL Cholesterol 53 mg/dL (23-92) 01/18/17 10:55 TSH 1.85 uIU/ml (0.34-5.60) 01/18/17 10:55 Urine Source CLEAN C 01/18/17 11:21 Urine Color YELLOW 01/18/17 11:21 Urine Clarity SLIGHT CLOUDY (CLEAR) 01/18/17 11:21 Urine pH 7.5 (4.6 - 8.0) 01/18/17 11:21 Ur Specific [place] 1.010 (1.005-1.030) 01/18/17 11:21 Urine Protein TRACE mg/dL (NEGATIVE) 01/18/17 11:21 Urine Glucose (UA) NEGATIVE mg/dL (NEGATIVE) 01/18/17 11:21 Urine Ketones NEGATIVE mg/dL (NEGATIVE) 01/18/17 11:21 Urine Blood TRACE (NEGATIVE) 01/18/17 11:21 Urine Nitrate NEGATIVE (NEGATIVE) 01/18/17 11:21 Urine Bilirubin NEGATIVE (NEGATIVE) 01/18/17 11:21 Urine Urobilinogen 0.2 E.U./dL (0.2 - 1.0) 01/18/17 11:21 Ur Leukocyte Esterase NEGATIVE (NEGATIVE) 01/18/17 11:21 Urine RBC 0-2 /hpf (0-5) H 01/18/17 11:21 Urine WBC 2-5 /hpf (0-5) H 01/18/17 11:21 Ur Epithelial Cells FEW /lpf (FEW) 01/18/17 11:21 Urine Bacteria OCCASIONAL /hpf (NONE SEEN) 01/18/17 11:21 Phenytoin 9.3 ug/ml (10.0-20.0) L 01/18/17 10:55 Valproic Acid 18.5 ug/mL (50.0-100.0) L 01/18/17 10:55 RPR NONREACTIVE (NONREACTIVE) 01/18/17 10:55 Laboratory Results - last 24 hr 01/18/17 01/19/1717 17:42 00:32 06:25 WBC 8.1 D RBC 3.89 Hgb 12.1 L Hct 36.3 L MCV 93.2 MCH 31.0 MCHC Differential 33.3 RDW 12.6 Plt Count 174 MPV 9.3 Neutrophils % 70.8 Lymphocytes % 16.0 L Monocytes % 11.3 H Eosinophils % 1.8 Basophils % 0.1 Sodium Potassium Chloride Carbon Dioxide Anion Gap BUN Creatinine Est GFR ( Amer) Est GFR (Non-Af Amer) BUN/Creatinine Ratio Glucose POC Glucose 106 H 91 Calcium Total Bilirubin AST ALT Alkaline Phosphatase Total Protein Albumin Globulin Albumin/Globulin Ratio 01/19/17 01/19/17 06:25 06:58 WBC RBC Hgb Hct MCV MCH MCHC Differential RDW Plt Count MPV Neutrophils % Lymphocytes % Monocytes % Eosinophils % Basophils % Sodium 130 L Potassium 4.1 Chloride 96 L Carbon Dioxide 29.8 Anion Gap 8.3 BUN 24 Creatinine 0.5 L Est GFR ( Amer) TNP Est GFR (Non-Af Amer) TNP BUN/Creatinine Ratio 48.0 Glucose 114 H POC Glucose 104 Calcium 9.0 Total Bilirubin 0.4 AST 17 ALT 15 Alkaline Phosphatase 82 Total Protein 6.3 Albumin 3.4 L Globulin 2.9 Albumin/Globulin Ratio 1.2 - Assessment Assessment: Current Active Problems Problem Status Onset DISLODGED GASTROSTOMY TUBE Acute malfunctioning gtube leukocytosis hyponatremia prerenal azotemia s/p g tube placement dysphagia seizure disorder cva tia chf dementia - Plan Plan: Will order repeat CBC,CMP cardiology consult pulmonary consult repeat cbc,cmp continue IV fluids
[2017-01-19] MEDS: Multivitamin Tab GT SCH (08:40)
[2017-01-19] MEDS: Sodium Chloride 0.9% 1,000 ML IV SCH (16:29)
--- NOTE | 2017-01-19 16:33 | Cardiology ---
01/19/[address] Gunn. M-MODE ECHOCARDIOGRAM: Mitral valve, anterior leaflet of mitral valve shows normal excursion, EF velocity. Posterior leaflet of the mitral valve shows normal excursion. Left ventricular posterior wall shows increased thickness, normal excursion. Interventricular septum shows increased thickness, normal excursion, hypertrophy of the left ventricle, ejection fraction 60%. Left atrium normal. Aortic root shows normal dimension, normal excursion of aortic leaflets. CONCLUSION: Hypertrophy of the left ventricle, ejection fraction 60%. 2D ECHO: Long axis view showed normal sized left ventricle with hypertrophy of the left ventricle. Left atrium normal. Aortic root shows normal dimension, normal excursion of aortic leaflets. Short axis view of mitral valve normal. Short axis view of aortic valve normal. Apical four chamber view showed normal sized left ventricle with hypertrophy of the left ventricle. Left atrium normal. Right ventricular cavity, right atrium normal, no pericardial effusion. CONCLUSION: Hypertrophy of the left ventricle, ejection fraction 60%. Doppler study shows prominent A wave consistent with poor compliance of left ventricle, trace aortic regurgitation. [facility]# [id number]
[2017-01-19] MEDS: Budesonide 0.5 Mg/2 mL Ud HHN SCH (19:35)
--- NOTE | 2017-01-20 00:39 | Consultation ---
DATE OF CONSULTATION: 01/19/2017 REASON FOR CONSULTATION: Shortness of breath and hypoxemia. CONSULT NOTE: This is an 86-year-old gentleman who was transferred from local convalescent home because of some question as to G-tube malformation, subsequently the patient was noted to be moderately to severely hypoxemic. Hence, the patient was admitted. Subsequently the patient ____ multiple other issues including electrolyte imbalance, etc. Subsequently, I was asked to see this patient for further care and necessary treatment. The patient is noncommunicative, restless, agitated, meaningful history from the patient is not available. PAST MEDICAL HISTORY: 1.History of COPD. 2.History of dysphagia. 3.History of dementia. 4.History of possibly congestive heart failure. 5.History of previous PEG placement. Smoking history, other history at this particular time is not available. He lives in a convalescent home. CURRENT MEDICATION: In the convalescent home includes Keppra, insulin, Dilantin, ascorbic acid, warfarin and Zantac. PHYSICAL EXAMINATION: GENERAL: This is an elderly looking gentleman, hardly is awake, restless and no meaningful communication could be done. VITAL SIGNS: The patient's last recorded vitals: Temperature is 97.6, pulse is in 60s, respiration 18, blood pressure is 126/55. HEENT: Examination of the head is essentially unremarkable. Pupils appear to be equal and reacting to light. Conjunctivae are slightly pallor. Oral cavity shows edentulous with significant dry mouth and oropharyngeal fossa is significantly narrow or smaller. NECK: Short. No nodes in the neck could be palpated. CHEST: Shows some upper respiratory secretory noise, but otherwise unremarkable. HEART: Regular. ABDOMEN: Shows G-tube with abdominal binder. EXTREMITIES: Shows some swelling on the right leg, but good pulsations. LABORATORY DATA: The patient's pertinent laboratory studies: White count is 8.1, hemoglobin 12.1, ABG, that was done yesterday, pCO2 of 48 and pO2 of 65 and electrolytes which shows sodium in the lower side, which is better. ASSESSMENT: The patient has hypoxemic respiratory failure, multifactorial. 1.Poor ability to mobilize tracheobronchial secretions because of ____. 2.Mild clinical dehydration makes difficult to mobilize secretions 3.Underlying suspicion of obstructive sleep apnea syndrome periodically can cause hypoxemia and finally possibly chronic obstructive pulmonary disease with ____ makes the situation little bit more complex. PLANS AND SUGGESTIONS: 1.We will go ahead and give inhalation treatment round the clock. 2.Hydrate the patient and we will repeat the blood gases. At this age, I do not think he will be very much cooperative to put a BiPAP machine or CPAP machine at nighttime and will recheck x-rays and DVT studies on the right leg and if those are essentially unremarkable, can be discharged in the next 24-48 hours and go from there. JOB# [id number]
--- NOTE | 2017-01-20 01:34 | Consultation ---
DATE OF CONSULTATION: 01/19/[address] Gunn. HISTORY AND PHYSICAL: This is an 86-year-old male patient who was at SNF. The patient had malfunctioning of the G-tube and the patient was admitted with chronic hypoxia. PAST MEDICAL HISTORY: Chronic hypoxia, COPD, G-tube, protein-calorie malnutrition, obesity, seizure disorder, CVA with late effect, congestive heart failure, chronic dementia, and BPH. FAMILY HISTORY: Unremarkable. SOCIAL HISTORY: No history of smoking or alcohol abuse. ALLERGIES: No known allergies. PHYSICAL EXAMINATION: VITAL SIGNS: Blood pressure 130/80, pulse 70, and respirations 20. HEAD: Normocephalic. No lumps or bumps. EYES: Pupils are equal and reactive to light. Fundi show AV nicking. Sclerae white, conjunctivae pink. NECK: Carotid 2+. Normal upstroke. JVD flat. Thyroid not palpable. Lymph nodes not palpable. CHEST: Shows increased AP diameter. No kyphosis or scoliosis. LUNGS: Bilateral bronchovesicular breath sounds. Occasional wheeze. No rales. HEART: PMI fifth intercostal space with lateral to midclavicular line. S1 and S2. No S3, soft S4. Systolic murmur, grade 2/6, lower left sternal border without radiation. ABDOMEN: Soft. Liver and spleen not palpable. No organomegaly. Bowel sounds active. NEUROLOGIC: No focal neurological deficit. EXTREMITIES: Peripheral pulses 2+. No pedal edema. CLINICAL IMPRESSION: G-tube malfunction, chronic hypoxia, chronic obstructive pulmonary disease, obesity, hyponatremia, seizure disorder, cerebrovascular accident with late effect, congestive heart failure, chronic diastolic dysfunction, dementia, and benign prostatic hyperplasia. The patient had an echocardiogram which showed ejection fraction of 60%, mild hypertrophy of the left ventricle, trace tricuspid regurgitation, and ejection fraction of 60%. JOB# [id number]
[2017-01-20] MEDS: Albuterol/Ipratropium Neb 3 ML AERS HHN SCH ×4 (01:39→19:46)
[2017-01-20] MEDS: Levetiracetam 500 mg/5mL 5mL UDC GT SCH ×3 (02:27→21:07)
[2017-01-20] MEDS: Sodium Chloride 0.9% 1,000 ML IV SCH (04:37)
[2017-01-20] MEDS: INSULIN ASPART SLIDING SCALE 100 UNITS/ML UNIT SUBQ SCH ×4 (07:00→18:37)
[2017-01-20] MEDS: Budesonide 0.5 Mg/2 mL Ud HHN SCH ×2 (07:32→19:46)
[2017-01-20 07:40] LABS: ALB/GLOB RATIO 1.3 (1.0-1.8); ALKALINE PHOSPHATASE 78 U/L (34-104); ANION GAP 7.3 (7.0-16.0); BILIRUBIN,TOTAL 0.4 mg/dL (0.3-1.0); BUN - UREA NITROGEN 17 mg/dL (7-25); CALCIUM SERUM 8.8 mg/dL (8.6-10.3); CARBON DIOXIDE 31.7 mEq/L (21.0-31.0); CHLORIDE 98 mEq/L (98-107); CREATININE - SERUM 0.5 mg/dL (0.7-1.3); GLUCOSE 107 mg/dL (70-105); SGOT 21 U/L (13-39); SGPT/ALT 17 U/L (7-52); SODIUM SERUM 133 mEq/L (136-145)
--- NOTE | 2017-01-20 08:43 | General Progress Note ---
Subjective - Review of Systems Service Date: 01/20/17 Subjective: Patient was seen and examined. no overt pain. Awake, alert afebrile Objective - Results Result Diagrams: 01/19/17 06:25 01/20/17 05:53 Recent Labs: Laboratory Last Values WBC 8.1 Th/cmm (4.8-10.8) D 01/19/17 06:25 RBC 3.89 Mil/cmm (3.80-5.80) 01/19/17 06:25 Hgb 12.1 gm/dL (12.6-17.4) L 01/19/17 06:25 Hct 36.3 % (39.0-49.0) L 01/19/17 06:25 MCV 93.2 fl (80-99) 01/19/17 06:25 MCH 31.0 pg (27.0-31.0) 01/19/17 06:25 MCHC Differential 33.3 pg (28.0-36.0) 01/19/17 06:25 RDW 12.6 % (11.5-20.0) 01/19/17 06:25 Plt Count 174 Th/cmm (150-400) 01/19/17 06:25 MPV 9.3 fl 01/19/17 06:25 Neutrophils % 70.8 % (40.0-80.0) 01/19/17 06:25 Lymphocytes % 16.0 % (20.0-50.0) L 01/19/17 06:25 Monocytes % 11.3 % (2.0-10.0) H 01/19/17 06:25 Eosinophils % 1.8 % (0.0-5.0) 01/19/17 06:25 Basophils % 0.1 % (0.0-2.0) 01/19/17 06:25 PT 11.0 SECONDS (9.5-11.5) 01/18/17 10:55 INR 1.06 (0.5-1.4) 01/18/17 10:55 PTT (Actin FS) 29.6 SECONDS (26.0-38.0) 01/18/17 10:55 Specimen Source Arterial 01/18/17 12:17 Sample Site Right Radial 01/18/17 12:17 pH 7.48 (7.35-7.45) H 01/18/17 12:17 pCO2 48.0 mmHg (35.0-45.0) H 01/18/17 12:17 pO2 65.0 mmHg (80.0-100.0) L 01/18/17 12:17 HCO3 33.2 mEq/L (20.0-26.0) H 01/18/17 12:17 Base Excess 10.7 mEq/L (-3.0-3.0) H 01/18/17 12:17 O2 Saturation 94.0 % (92.0-100.0) 01/18/17 12:17 Shamar Test Positive 01/18/17 12:17 Vent Rate NA 01/18/17 12:17 Inspired O2 21 01/18/17 12:17 Tidal Volume NA 01/18/17 12:17 PEEP NA 01/18/17 12:17 Pressure (ins/psv/peep) NA 01/18/17 12:17 Critical Value LZHANG 01/18/17 12:17 Sodium 133 mEq/L (136-145) L 01/20/17 05:53 Potassium 4.0 mEq/L (3.5-5.1) 01/20/17 05:53 Chloride 98 mEq/L (98-107) 01/20/17 05:53 Carbon Dioxide 31.7 mEq/L (21.0-31.0) H 01/20/17 05:53 Anion Gap 7.3 (7.0-16.0) 01/20/17 05:53 BUN 17 mg/dL (7-25) 01/20/17 05:53 Creatinine 0.5 mg/dL (0.7-1.3) L 01/20/17 05:53 Est GFR ( Amer) TNP 01/20/17 05:53 Est GFR (Non-Af Amer) TNP 01/20/17 05:53 BUN/Creatinine Ratio 34.0 01/20/17 05:53 Glucose 107 mg/dL (70-105) H 01/20/17 05:53 POC Glucose 101 MG/DL (70 - 105) 01/20/17 06:47 Whole Bld Lactic Acid 0.76 mmol/L (0.60-1.99) 01/18/17 10:55 Calcium 8.8 mg/dL (8.6-10.3) 01/20/17 05:53 Total Bilirubin 0.4 mg/dL (0.3-1.0) 01/20/17 05:53 AST 21 U/L (13-39) 01/20/17 05:53 ALT 17 U/L (7-52) 01/20/17 05:53 Alkaline Phosphatase 78 U/L (34-104) 01/20/17 05:53 Troponin I 0.01 ng/mL (0.01-0.05) 01/18/17 10:55 B-Natriuretic Peptide 83.4 pg/mL (5.0-100.0) 01/18/17 10:55 Total Protein 6.3 gm/dL (6.0-8.3) 01/20/17 05:53 Albumin 3.5 gm/dL (4.2-5.5) L 01/20/17 05:53 Globulin 2.8 gm/dL 01/20/17 05:53 Albumin/Globulin Ratio 1.3 (1.0-1.8) 01/20/17 05:53 Triglycerides 56 mg/dL (<150) 01/18/17 10:55 Cholesterol 140 mg/dL (<200) 01/18/17 10:55 LDL Cholesterol Direct 92 mg/dL (75-193) 01/18/17 10:55 HDL Cholesterol 53 mg/dL (23-92) 01/18/17 10:55 TSH 1.85 uIU/ml (0.34-5.60) 01/18/17 10:55 Urine Source CLEAN C 01/18/17 11:21 Urine Color YELLOW 01/18/17 11:21 Urine Clarity SLIGHT CLOUDY (CLEAR) 01/18/17 11:21 Urine pH 7.5 (4.6 - 8.0) 01/18/17 11:21 Ur Specific [place] 1.010 (1.005-1.030) 01/18/17 11:21 Urine Protein TRACE mg/dL (NEGATIVE) 01/18/17 11:21 Urine Glucose (UA) NEGATIVE mg/dL (NEGATIVE) 01/18/17 11:21 Urine Ketones NEGATIVE mg/dL (NEGATIVE) 01/18/17 11:21 Urine Blood TRACE (NEGATIVE) 01/18/17 11:21 Urine Nitrate NEGATIVE (NEGATIVE) 01/18/17 11:21 Urine Bilirubin NEGATIVE (NEGATIVE) 01/18/17 11:21 Urine Urobilinogen 0.2 E.U./dL (0.2 - 1.0) 01/18/17 11:21 Ur Leukocyte Esterase NEGATIVE (NEGATIVE) 01/18/17 11:21 Urine RBC 0-2 /hpf (0-5) H 01/18/17 11:21 Urine WBC 2-5 /hpf (0-5) H 01/18/17 11:21 Ur Epithelial Cells FEW /lpf (FEW) 01/18/17 11:21 Urine Bacteria OCCASIONAL /hpf (NONE SEEN) 01/18/17 11:21 Phenytoin 9.3 ug/ml (10.0-20.0) L 01/18/17 10:55 Valproic Acid 18.5 ug/mL (50.0-100.0) L 01/18/17 10:55 RPR NONREACTIVE (NONREACTIVE) 01/18/17 10:55 - Physical Exam Vitals and I&O: Vital Signs Temp 98.4 F 01/20/17 04:00 Pulse 65 01/20/17 08:12 Resp 18 01/20/17 08:12 BP 109/65 01/20/17 04:00 Pulse Ox 96 01/20/17 08:12 Intake & Output 01/19/17 01/20/17 01/20/17 18:59 06:59 18:59 Intake Total 1000 Balance 1000 Weight (lbs) 98.611 kg Intake: Intake, IV Amount 1000 Sodium Chloride 0.9% 1, 1000 000 ml @ 100 mls/hr IV . Q10H ON LICENSE OF [facility] Rx#:[id number] Other: Stool Characteristics Soft Green Active Medications: Current Medications Acetaminophen (Tylenol 650mg/20.3ml Suspension) 650 mg GT Q4HR PRN PRN Reason: FEVER >100.4 OR FOR PAIN Stop: 03/19/17 14:21 Albuterol/Ipratropium (Duoneb Neb) 3 ml HHN Q6HRT ON LICENSE OF [facility] PRN Reason: Protocol Stop: 03/19/17 23:03 Last Admin: 01/20/17 07:32 Dose: 3 ml Ascorbic Acid (Vitamin C) 500 mg GT DAILY ON LICENSE OF [facility] Stop: 03/20/17 08:59 Last Admin: 01/19/17 08:39 Dose: 500 mg Bisacodyl (Dulcolax 10 Mg Supp) 10 mg RC DAILY PRN PRN Reason: Constipation Stop: 03/19/17 14:21 Budesonide (Pulmicort) 0.5 mg HHN BIDRT ON LICENSE OF [facility] Stop: 03/20/17 18:59 Last Admin: 01/20/17 07:32 Dose: 0.5 mg Divalproex Sodium (Depakote Er) 500 mg PO DAILY [place] PRN Reason: Protocol Stop: 03/20/17 08:59 Last Admin: 01/19/17 09:01 Dose: 500 mg Ceftriaxone Sodium 1 gm/ (Sodium Chloride) 50 mls @ 100 mls/hr IV Q24HR [place] Stop: 03/20/17 08:59 Last Admin: 01/19/17 08:36 Dose: 100 mls/hr Sodium Chloride (Nacl 0.9%) 1,000 mls @ 100 mls/hr IV .Q10H ON LICENSE OF [facility] Stop: 03/20/17 15:21 Last Admin: 01/20/17 04:37 Dose: 100 mls/hr Insulin Aspart (Novolog Insulin Sliding Scale) 0 units SUBQ Q6HR [place] PRN Reason: Protocol Stop: 03/20/17 00:00 Last Admin: 01/20/17 07:00 Dose: Not Given Levetiracetam (Keppra) 750 mg GT Q12HR ON LICENSE OF [facility] Stop: 03/19/17 20:59 Last Admin: 01/20/17 02:27 Dose: 750 mg Magnesium Hydroxide (Milk Of Magnesia) 30 ml GT DAILY PRN PRN Reason: IF NO BM IN TWO DAYS Stop: 03/19/17 14:21 Miscellaneous (Vte Chemical Prophylaxis Screen/ Admission) 1 ea [facility] PRN PRN PRN Reason: PROTOCOL Stop: 03/19/17 16:26 Multivitamins/Vitamin C (Theragran) 1 tab GT DAILY ON LICENSE OF [facility] Stop: 03/20/17 08:59 Last Admin: 01/19/17 08:40 Dose: 1 tab Phenytoin (Dilantin) 300 mg GT TID ON LICENSE OF [facility] Stop: 03/19/17 20:59 Last Admin: 01/20/17 02:07 Dose: 300 mg Sodium Phosphate (Fleet Enema) 135 ml RC DAILY PRN PRN Reason: IF MOM OR DULCOLAX INEFFECTIVE Stop: 03/19/17 14:21 Valproate Sodium (Depakene) 500 mg GT Q12H [place] PRN Reason: Protocol Stop: 03/19/17 14:29 Last Admin: 01/20/17 02:13 Dose: 500 mg Zinc Sulfate (Zinc Sulfate) 220 mg GT DAILY ON LICENSE OF [facility] Stop: 03/20/17 08:59 Last Admin: 01/19/17 08:40 Dose: 220 mg General: Alert, No acute distress HEENT: Atraumatic, PERRLA, EOMI Neck: Supple Cardiovascular: Regular rate, Normal S1, Normal S2 Lungs: Other (occasional rhonchi) Abdomen: Bowel sounds, Soft, no Tender, no Distended Extremities: Edema, no Clubbing, no Cyanosis Skin: no Rash - Procedures Procedures: Procedures Procedure Code Date CHANGE FEEDING DEVICE IN UP INTEST TRACT, NURSING STAFFING COORDINATOR APPROACH [id number] 01/18/17 CHANGE GASTROSTOMY TUBE 82011 01/18/17 CLOSURE SKIN & SUBCUTANEOUS NEC 86.59 03/07/12 GROUP PSYCHOTHERAPY 88508 10/25/15 GROUP PSYCHOTHERAPY [id number] 10/25/15 IMMUNIZATION ADMIN 60619 07/30/13 INSERT INDWELLING CATH 57.94 01/31/10 INSERT TEMP BLADDER CATH 16398 01/31/10 OTHER GROUP THERAPY 94.44 02/23/12 RECREATIONAL THERAPY 93.81 02/23/12 RPR F/E/E/N/L/M 2.6-5.0 [place] [address] 03/07/12 VACCINATION NEC 99.55 07/30/13 VACCINE TOXOID 12903 07/30/13 Assessment/Plan - Problem List Patient Problems: All Active Problems DISLODGED GASTROSTOMY TUBE (Acute) Pneumonia (Active) J18.9 GASTRIC TUBE DISLODGEMENT (Acute) Psychiatric disorder (Acute) F99 The administrative codes within the [facility] content you are accessing may have as of 09/13/2015. Please contact your IT Dept/Help Desk and request the latest Regulatory release be installed. IT Dept/Help Desk- Please refer to our FAQ page ([email or web address]) or contact [facility] Customer Support at [email or web address] (Acute) - Assessment Assessment: Current Active Problems Problem Status Onset DISLODGED GASTROSTOMY TUBE Acute malfunctioning gtube leukocytosis hyponatremia prerenal azotemia s/p g tube placement dysphagia seizure disorder cva tia chf dementia - Plan Plan: continue current treatment
[2017-01-20] MEDS: Multivitamin Tab GT SCH (09:28)
[2017-01-20] MEDS: cefTRIAXone 1 GM in Sodium Chloride 0.9% 50 ML IV SCH (09:42)
--- NOTE | 2017-01-20 10:10 | Diagnostic Imaging Report ---
CHEST X-RAY: AP view INDICATION: Hypoxemia COMPARISON: 01/18/2017 FINDINGS: Chronic lung changes are seen. No focal consolidation or effusions. Cardiomegaly is noted with atherosclerosis. Degenerative changes of spine are noted. IMPRESSION: Chronic lung changes with no focal consolidation identified. Cardiomegaly and atherosclerotic vascular disease.
[2017-01-20 10:32] LABS: pH 7.42 (7.35-7.45)
[2017-01-20 10:33] LABS: ABG SOURCE Arterial; ALLEN TEST YES; BE(B) 6.2 mEq/L (-3.0-3.0); FIO2 21; HCO3 29.6 mEq/L (20.0-26.0)
--- NOTE | 2017-01-20 12:52 | Diagnostic Imaging Report ---
Right lower extremity DVT study HISTORY: Right leg swelling, hypoxemia COMPARISON: None Technique: Longitudinal and transverse sonographic images of the right lower extremity veins were obtained with doppler analysis. FINDINGS: Exam is limited as patient was uncooperative. There is patency of the right common femoral, superficial femoral, and popliteal veins. Compressibility, phasicity and augmentation was demonstrated with no evidence of DVT formation. The right posterior tibial and peroneal veins were not visualized. IMPRESSION: Limited exam as patient was uncooperative. No evidence of DVT within the right common femoral, superficial femoral, or popliteal veins. The right posterior tibial veins and peroneal veins were not visualized.
[2017-01-21] MEDS: INSULIN ASPART SLIDING SCALE 100 UNITS/ML UNIT SUBQ SCH ×2 (01:42→05:40)
[2017-01-21] MEDS: Albuterol/Ipratropium Neb 3 ML AERS HHN SCH ×2 (01:55→07:03)
--- NOTE | 2017-01-21 02:22 | Progress Notes ---
DATE: 01/20/2017 PROBLEM LIST: 1. Acute respiratory failure, improving. 2. Hypoxemia, underlying history of chronic obstructive pulmonary disease with sleep apnea syndrome. 3. Dehydration complicated his mobilization of secretions. SYMPTOMS: The patient is awake, agitated, restless, no distress at this particular time. PHYSICAL EXAMINATION: VITAL SIGNS: The patient's temperature is 97.2, respirations about in teens, and saturations is 90s on 2 L per minute. NECK: Veins not visualized. CHEST: Shows occasional sewer pipe layer noise with diminished air entry. HEART: Regular. ABDOMEN: Soft, nontender. EXTREMITIES: Shows no peripheral edema. LABORATORY DATA: The patient's ABG room air pO2 is 61. Electrolytes are okay. BNP is 102. Chest x-ray shows fairly clear. ASSESSMENT: The patient is clinically stable and improving. PLANS AND SUGGESTIONS: We will go ahead and continue the current treatment. Recheck a couple of labs if okay tomorrow and see if it is okay, and we are probably planning for discharge planning and go from there. JOB# [id number]
[2017-01-21 06:38] LABS: % BASOPHILS 0.1 % (0.0-2.0); % EOSINOPHILS 2.2 % (0.0-5.0); % LYMPHOCYTES 17.1 % (20.0-50.0); % MONOCYTES 9.5 % (2.0-10.0); % NEUTROPHILS 71.1 % (40.0-80.0); HEMATOCRIT 36.8 % (39.0-49.0); HEMOGLOBIN 12.2 gm/dL (12.6-17.4); MEAN CORPUSCULAR HEMOGLOBIN 30.6 pg (27.0-31.0); MEAN CORPUSCULAR HGB CONC 33.2 pg (28.0-36.0); NEUTROPHILE ABSOLUTE 4.6 Th/cmm (1.8-8.0); PLATELET COUNT 202 Th/cmm (150-400); RED CELL DISTRIBUTION WIDTH 12.7 % (11.5-20.0)
[2017-01-21] MEDS: Budesonide 0.5 Mg/2 mL Ud HHN SCH (07:04)
[2017-01-21 07:08] LABS: WHITE BLOOD COUNT 6.4 Th/cmm (4.8-10.8)
[2017-01-21 07:21] LABS: ANION GAP 9.1 (7.0-16.0); BUN - UREA NITROGEN 13 mg/dL (7-25); CARBON DIOXIDE 30.3 mEq/L (21.0-31.0); CHLORIDE 97 mEq/L (98-107); CREATININE - SERUM 0.5 mg/dL (0.7-1.3); GLUCOSE 108 mg/dL (70-105); POTASSIUM SERUM 4.4 mEq/L (3.5-5.1); SODIUM SERUM 132 mEq/L (136-145)
--- NOTE | 2017-01-21 08:08 | General Progress Note ---
Subjective - Review of Systems Service Date: 01/21/17 Subjective: Patient was seen and examined. no overt pain. Awake, alert afebrile Venous doppler US negative for DVT. Objective - Results Result Diagrams: 01/21/17 05:35 01/21/17 05:35 Recent Labs: Laboratory Last Values WBC 6.4 Th/cmm (4.8-10.8) D 01/21/17 05:35 RBC 4.00 Mil/cmm (3.80-5.80) 01/21/17 05:35 Hgb 12.2 gm/dL (12.6-17.4) L 01/21/17 05:35 Hct 36.8 % (39.0-49.0) L 01/21/17 05:35 MCV 92.0 fl (80-99) 01/21/17 05:35 MCH 30.6 pg (27.0-31.0) 01/21/17 05:35 MCHC Differential 33.2 pg (28.0-36.0) 01/21/17 05:35 RDW 12.7 % (11.5-20.0) 01/21/17 05:35 Plt Count 202 Th/cmm (150-400) 01/21/17 05:35 MPV 9.0 fl 01/21/17 05:35 Neutrophils % 71.1 % (40.0-80.0) 01/21/17 05:35 Lymphocytes % 17.1 % (20.0-50.0) L 01/21/17 05:35 Monocytes % 9.5 % (2.0-10.0) 01/21/17 05:35 Eosinophils % 2.2 % (0.0-5.0) 01/21/17 05:35 Basophils % 0.1 % (0.0-2.0) 01/21/17 05:35 PT 11.0 SECONDS (9.5-11.5) 01/18/17 10:55 INR 1.06 (0.5-1.4) 01/18/17 10:55 PTT (Actin FS) 29.6 SECONDS (26.0-38.0) 01/18/17 10:55 Specimen Source Arterial 01/20/17 10:26 Sample Site Right Radial 01/20/17 10:26 pH 7.42 (7.35-7.45) 01/20/17 10:26 pCO2 49.0 mmHg (35.0-45.0) H 01/20/17 10:26 pO2 61.0 mmHg (80.0-100.0) L 01/20/17 10:26 HCO3 29.6 mEq/L (20.0-26.0) H 01/20/17 10:26 Base Excess 6.2 mEq/L (-3.0-3.0) H 01/20/17 10:26 O2 Saturation 91.0 % (92.0-100.0) L 01/20/17 10:26 Shamar Test YES 01/20/17 10:26 Vent Rate NA 01/20/17 10:26 Inspired O2 21 01/20/17 10:26 Tidal Volume NA 01/20/17 10:26 PEEP NA 01/20/17 10:26 Pressure (ins/psv/peep) NA 01/20/17 10:26 Critical Value E.ARREOLA 01/20/17 10:26 Sodium 132 mEq/L (136-145) L 01/21/17 05:35 Potassium 4.4 mEq/L (3.5-5.1) 01/21/17 05:35 Chloride 97 mEq/L (98-107) L 01/21/17 05:35 Carbon Dioxide 30.3 mEq/L (21.0-31.0) 01/21/17 05:35 Anion Gap 9.1 (7.0-16.0) 01/21/17 05:35 BUN 13 mg/dL (7-25) 01/21/17 05:35 Creatinine 0.5 mg/dL (0.7-1.3) L 01/21/17 05:35 Est GFR ( Amer) TNP 01/21/17 05:35 Est GFR (Non-Af Amer) TNP 01/21/17 05:35 BUN/Creatinine Ratio 26.0 01/21/17 05:35 Glucose 108 mg/dL (70-105) H 01/21/17 05:35 POC Glucose 115 MG/DL (70 - 105) H 01/21/17 05:35 Whole Bld Lactic Acid 0.76 mmol/L (0.60-1.99) 01/18/17 10:55 Calcium 9.0 mg/dL (8.6-10.3) 01/21/17 05:35 Total Bilirubin 0.4 mg/dL (0.3-1.0) 01/20/17 05:53 AST 21 U/L (13-39) 01/20/17 05:53 ALT 17 U/L (7-52) 01/20/17 05:53 Alkaline Phosphatase 78 U/L (34-104) 01/20/17 05:53 Troponin I 0.01 ng/mL (0.01-0.05) 01/18/17 10:55 B-Natriuretic Peptide 102.0 pg/mL (5.0-100.0) H 01/20/17 05:53 Total Protein 6.3 gm/dL (6.0-8.3) 01/20/17 05:53 Albumin 3.5 gm/dL (4.2-5.5) L 01/20/17 05:53 Globulin 2.8 gm/dL 01/20/17 05:53 Albumin/Globulin Ratio 1.3 (1.0-1.8) 01/20/17 05:53 Triglycerides 56 mg/dL (<150) 01/18/17 10:55 Cholesterol 140 mg/dL (<200) 01/18/17 10:55 LDL Cholesterol Direct 92 mg/dL (75-193) 01/18/17 10:55 HDL Cholesterol 53 mg/dL (23-92) 01/18/17 10:55 TSH 1.85 uIU/ml (0.34-5.60) 01/18/17 10:55 Urine Source CLEAN C 01/18/17 11:21 Urine Color YELLOW 01/18/17 11:21 Urine Clarity SLIGHT CLOUDY (CLEAR) 01/18/17 11:21 Urine pH 7.5 (4.6 - 8.0) 01/18/17 11:21 Ur Specific [place] 1.010 (1.005-1.030) 01/18/17 11:21 Urine Protein TRACE mg/dL (NEGATIVE) 01/18/17 11:21 Urine Glucose (UA) NEGATIVE mg/dL (NEGATIVE) 01/18/17 11:21 Urine Ketones NEGATIVE mg/dL (NEGATIVE) 01/18/17 11:21 Urine Blood TRACE (NEGATIVE) 01/18/17 11:21 Urine Nitrate NEGATIVE (NEGATIVE) 01/18/17 11:21 Urine Bilirubin NEGATIVE (NEGATIVE) 01/18/17 11:21 Urine Urobilinogen 0.2 E.U./dL (0.2 - 1.0) 01/18/17 11:21 Ur Leukocyte Esterase NEGATIVE (NEGATIVE) 01/18/17 11:21 Urine RBC 0-2 /hpf (0-5) H 01/18/17 11:21 Urine WBC 2-5 /hpf (0-5) H 01/18/17 11:21 Ur Epithelial Cells FEW /lpf (FEW) 01/18/17 11:21 Urine Bacteria OCCASIONAL /hpf (NONE SEEN) 01/18/17 11:21 Phenytoin 9.3 ug/ml (10.0-20.0) L 01/18/17 10:55 Valproic Acid 18.5 ug/mL (50.0-100.0) L 01/18/17 10:55 RPR NONREACTIVE (NONREACTIVE) 01/18/17 10:55 - Physical Exam Vitals and I&O: Vital Signs Temp 97.2 F 01/20/17 20:00 Pulse 70 01/21/17 07:08 Resp 18 01/21/17 07:08 BP 137/59 01/20/17 20:00 Pulse Ox 99 01/21/17 07:08 Intake & Output 01/20/17 01/21/17 01/21/17 18:59 06:59 18:59 Intake Total 600 Output Total 3 Balance 597 Weight (lbs) 98.43 kg Intake: Tube Feeding 600 Output: Urine 3 Other: # Bowel Movements 1 Stool Characteristics Soft Green Active Medications: Current Medications Acetaminophen (Tylenol 650mg/20.3ml Suspension) 650 mg GT Q4HR PRN PRN Reason: FEVER >100.4 OR FOR PAIN Stop: 03/19/17 14:21 Albuterol/Ipratropium (Duoneb Neb) 3 ml HHN Q6HRT [place] PRN Reason: Protocol Stop: 03/19/17 23:03 Last Admin: 01/21/17 07:03 Dose: 3 ml Ascorbic Acid (Vitamin C) 500 mg GT DAILY [place] Stop: 03/20/17 08:59 Last Admin: 01/20/17 09:28 Dose: 500 mg Bisacodyl (Dulcolax 10 Mg Supp) 10 mg RC DAILY PRN PRN Reason: Constipation Stop: 03/19/17 14:21 Budesonide (Pulmicort) 0.5 mg HHN BIDRT [place] Stop: 03/20/17 18:59 Last Admin: 01/21/17 07:04 Dose: 0.5 mg Divalproex Sodium (Depakote Er) 500 mg PO DAILY [place] PRN Reason: Protocol Stop: 03/20/17 08:59 Last Admin: 01/20/17 09:27 Dose: 500 mg Ceftriaxone Sodium 1 gm/ (Sodium Chloride) 50 mls @ 100 mls/hr IV Q24HR [place] Stop: 03/20/17 08:59 Last Admin: 01/20/17 09:42 Dose: 100 mls/hr Sodium Chloride (Nacl 0.9%) 1,000 mls @ 100 mls/hr IV .Q10H [facility] Stop: 03/20/17 15:21 Last Admin: 01/20/17 04:37 Dose: 100 mls/hr Insulin Aspart (Novolog Insulin Sliding Scale) 0 units SUBQ Q6HR [place] PRN Reason: Protocol Stop: 03/20/17 00:00 Last Admin: 01/21/17 05:40 Dose: 3 units Levetiracetam (Keppra) 750 mg GT Q12HR [facility] Stop: 03/19/17 20:59 Last Admin: 01/20/17 21:07 Dose: Not Given Magnesium Hydroxide (Milk Of Magnesia) 30 ml GT DAILY PRN PRN Reason: IF NO BM IN TWO DAYS Stop: 03/19/17 14:21 Miscellaneous (Vte Chemical Prophylaxis Screen/ Admission) 1 ea MC PRN PRN PRN Reason: PROTOCOL Stop: 03/19/17 16:26 Multivitamins/Vitamin C (Theragran) 1 tab GT DAILY [facility] Stop: 03/20/17 08:59 Last Admin: 01/20/17 09:28 Dose: 1 tab Phenytoin (Dilantin) 300 mg GT TID [facility] Stop: 03/19/17 20:59 Last Admin: 01/20/17 21:09 Dose: 300 mg Sodium Phosphate (Fleet Enema) 135 ml RC DAILY PRN PRN Reason: IF MOM OR DULCOLAX INEFFECTIVE Stop: 03/19/17 14:21 Valproate Sodium (Depakene) 500 mg GT Q12H [place] PRN Reason: Protocol Stop: 03/19/17 14:29 Last Admin: 01/21/17 03:54 Dose: 500 mg Zinc Sulfate (Zinc Sulfate) 220 mg GT DAILY [place] Stop: 03/20/17 08:59 Last Admin: 01/20/17 09:27 Dose: 220 mg General: Alert, No acute distress HEENT: Atraumatic, PERRLA, EOMI Neck: Supple Cardiovascular: Regular rate, Normal S1, Normal S2 Lungs: Other (occasional rhonchi) Abdomen: Bowel sounds, Soft, no Tender, no Distended Extremities: Edema, no Clubbing, no Cyanosis Skin: no Rash - Procedures Procedures: Procedures Procedure Code Date CHANGE FEEDING DEVICE IN UP INTEST TRACT, NEWSPAPER PHOTOJOURNALIST APPROACH [id number] 01/18/17 CHANGE GASTROSTOMY TUBE 17672 01/18/17 CLOSURE SKIN & SUBCUTANEOUS NEC 86.59 03/07/12 GROUP PSYCHOTHERAPY 40584 10/25/15 GROUP PSYCHOTHERAPY [id number] 10/25/15 IMMUNIZATION ADMIN 72938 07/30/13 INSERT INDWELLING CATH 57.94 01/31/10 INSERT TEMP BLADDER CATH 23598 01/31/10 OTHER GROUP THERAPY 94.44 02/23/12 RECREATIONAL THERAPY 93.81 02/23/12 RPR F/E/E/N/L/M 2.6-5.0 [place] [address] 03/07/12 VACCINATION NEC 99.55 07/30/13 VACCINE TOXOID 29344 07/30/13 Assessment/Plan - Problem List Patient Problems: All Active Problems DISLODGED GASTROSTOMY TUBE (Acute) Pneumonia (Active) J18.9 GASTRIC TUBE DISLODGEMENT (Acute) Psychiatric disorder (Acute) F99 The administrative codes within the [employer] content you are accessing may have as of 09/13/2015. Please contact your IT Dept/Help Desk and request the latest Regulatory release be installed. IT Dept/Help Desk- Please refer to our FAQ page ([email or web address] or contact [employer] Customer Support at [email or web address] (Acute) - Assessment Assessment: Current Active Problems Problem Status Onset DISLODGED GASTROSTOMY TUBE Acute malfunctioning gtube leukocytosis hyponatremia prerenal azotemia s/p g tube placement dysphagia seizure disorder cva tia chf dementia - Plan Plan: maybe discharged today if OK with consultants. Nutritional Asmnt/Malnutr-PDOC - Dietary Evaluation Malnutrition Findings (Please click <Entered> for more info): Nutritional Asmnt/Malnutrition Start: 01/20/17 12: 02 Text: Status: Complete Freq: Document 01/20/17 18:02 [facility] (Rec: 01/20/17 18:11 [facility] [id number]) Nutritional Asmnt/Malnutrition Patient General Information Nutritional Screening High Risk Screening Diagnosis Malfunctioning gtube, leukocytosis Pertinent Medical Hx/Surgical Hx CVA, dementia, seizure, TIA, dysphagia, osteoarthritis, CHF , COPD Subjective Information Pt is a 86-year-old male from [facility] admitted with chief complaint of malfunctioning gtube. Pt is a poor historian, and he is nonverbal. RD verified Diabetisource AC infusing at 50 ml/hr. No muscle or fat depletion assessed. Pt received Nutren 2.0 at 50 ml/ hr x 20 hours at [facility], providing 2000 kcals, 80 gm protein, and 703 ml free water per day. Current Diet Order/ Nutrition Support Diabetisource AC at 50 ml/hr = 1440 kcals, 72 gm protein, 982 ml free water Patient / S.O Can't verbalize diet edu Pertinent Medications Vitamin C, Depakote, Novolog, Theragran, NaCl0.9%, Dilatin TID, Depakene, Zinc Sulfate Pertinent Labs (01/20) Na 133L (improved) Nutritional Hx/Data Height 1.68 m Height (Calculated Centimeters) 167.6 Current Weight (lbs) 98.611 kg Weight (Calculated Kilograms) 98.6 Weight (Calculated Grams) 75795.0 [place] Body Weight 142 % [place] Body Weight 153 Weight Status Obese GI Symptoms GI Symptoms None Difficult in: Chewing Swallowing Food Allergies No Usual diet at home Nutren 2.0 at 50 ml/hr x 20 hours between [id number] Skin Integrity/Comment: Augustine Dodge. Skin intact. Estimated Nutritional Goals BEE in Kcals: Adj wt of IBW Calories/Kcals/Kg Based on IBW 64.5 kg with consideration of bedbound status Kcals Calculated 1613 kcals/day (25 kcals/kg) Protein: Adj wt of IBW Protein g/kg: Based on IBW 64.5 kg with consideration of bedbound status Protein Calculated 65-77 gm/day (1-1.2 gm/kg) Fluid: ml [phone] ml/day (30-35 ml/kg) Nutritional Problem 1. Problem Problem Inadequate energy intake related to Etiology estimated nutritional needs as evidenced by Signs/Symptoms: current tube feeding regimen meets 89% of estimated calorie needs. Malnutrition Alert Protein-Calorie Malnutrition N/A Is there a minimum of two criteria No selected? Query Text:Check all the applicable criteria. A minimum of two criteria are recommended for diagnosis of either severe or non-severe malnutrition. Malnutrition Related to Morbid Obesity Malnutrition related to morbid obesity No Intervention/Recommendation Recommendations by RD Increase Calorie Intake Comments 1. Recommend increase Diabetisource AC to goal rate of 57 ml/hr to provide 1642 kcals, 82 gm protein, and 1119 ml free water per day. 2. Consider 140 ml free water flushes every 4 hours to better meet fluid needs. Expected Outcomes/Goals Expected Outcomes/Goals Provide pt with 100% of estimated nutritional needs.
[2017-01-21] MEDS: Multivitamin Tab GT SCH (10:18)
[2017-01-21] MEDS: Levetiracetam 500 mg/5mL 5mL UDC GT SCH (10:21)
--- NOTE | 2017-01-22 03:53 | Progress Notes ---
DATE: 01/21/2017 PROBLEM LIST: 1. Acute exacerbation of chronic obstructive pulmonary disease. 2. Dehydration. 3. Suspect obstructive sleep apnea syndrome. SYMPTOMS: Nil, little bit more awake, alert, in no respiratory distress, etc. PHYSICAL EXAMINATION: VITAL SIGNS: Temperature is , saturation 96% on 2 liters per minute. NECK: Veins not visualized. Good bilateral carotid upstroke. CHEST: Shows diminished air entry. No other adventitious breath sounds. HEART: Regular. EXTREMITIES: Shows no peripheral edema. ASSESSMENT: The patient is clinically stable, improving. PLANS AND SUGGESTIONS: We will continue current treatment, discontinue IV, consideration for discharge if it is okay. We will check the room air, blood gases prior to discharge and go from there respiratory torres. JOB# [id number]
--- NOTE | 2017-01-23 08:26 | Discharge Summary ---
General Discharge Summary - Discharge Summary Date of Admission: 01/19/17 Admitting Diagnosis: Malfunctioning Gtube Patient Problems: All Active Problems Pneumonia (Active) J18.9 DISLODGED GASTROSTOMY TUBE (Acute) GASTRIC TUBE DISLODGEMENT (Acute) Psychiatric disorder (Acute) F99 The administrative codes within the [employer] content you are accessing may have as of 09/13/2015. Please contact your IT Dept/Help Desk and request the latest Regulatory release be installed. IT Dept/Help Desk- Please refer to our FAQ page ([email or web address] or contact [employer] Customer Support at [email or web address] (Acute) Discharge Date: 01/21/17 Discharge Diagnosis: See Above Laboratory Findings: Laboratory Tests 01/18/17 01/19/17 01/19/17 17:42 00:32 06:25 WBC 8.1 D RBC 3.89 Hgb 12.1 L Hct 36.3 L MCV 93.2 MCH 31.0 MCHC Differential 33.3 RDW 12.6 Plt Count 174 MPV 9.3 Neutrophils % 70.8 Lymphocytes % 16.0 L Monocytes % 11.3 H Eosinophils % 1.8 Basophils % 0.1 Specimen Source Sample Site pH pCO2 pO2 HCO3 Base Excess O2 Saturation Shamar Test Vent Rate Inspired O2 Tidal Volume PEEP Pressure (ins/psv/peep) Critical Value Sodium Potassium Chloride Carbon Dioxide Anion Gap BUN Creatinine Est GFR ( Amer) Est GFR (Non-Af Amer) BUN/Creatinine Ratio Glucose POC Glucose 106 H 91 Calcium Total Bilirubin AST ALT Alkaline Phosphatase B-Natriuretic Peptide Total Protein Albumin Globulin Albumin/Globulin Ratio 01/19/17 01/19/17 01/19/17 06:25 06:58 11:05 WBC RBC Hgb Hct MCV MCH MCHC Differential RDW Plt Count MPV Neutrophils % Lymphocytes % Monocytes % Eosinophils % Basophils % Specimen Source Sample Site pH pCO2 pO2 HCO3 Base Excess O2 Saturation Shamar Test Vent Rate Inspired O2 Tidal Volume PEEP Pressure (ins/psv/peep) Critical Value Sodium 130 L Potassium 4.1 Chloride 96 L Carbon Dioxide 29.8 Anion Gap 8.3 BUN 24 Creatinine 0.5 L Est GFR ( Amer) TNP Est GFR (Non-Af Amer) TNP BUN/Creatinine Ratio 48.0 Glucose 114 H POC Glucose 104 113 H Calcium 9.0 Total Bilirubin 0.4 AST 17 ALT 15 Alkaline Phosphatase 82 B-Natriuretic Peptide Total Protein 6.3 Albumin 3.4 L Globulin 2.9 Albumin/Globulin Ratio 1.2 01/19/17 01/19/17 01/20/17 16:27 23:07 05:53 WBC RBC Hgb Hct MCV MCH MCHC Differential RDW Plt Count MPV Neutrophils % Lymphocytes % Monocytes % Eosinophils % Basophils % Specimen Source Sample Site pH pCO2 pO2 HCO3 Base Excess O2 Saturation Shamar Test Vent Rate Inspired O2 Tidal Volume PEEP Pressure (ins/psv/peep) Critical Value Sodium Potassium Chloride Carbon Dioxide Anion Gap BUN Creatinine Est GFR ( Amer) Est GFR (Non-Af Amer) BUN/Creatinine Ratio Glucose POC Glucose 115 H 99 Calcium Total Bilirubin AST ALT Alkaline Phosphatase B-Natriuretic Peptide 102.0 H Total Protein Albumin Globulin Albumin/Globulin Ratio 01/20/17 01/20/17 01/20/17 05:53 06:47 10:26 WBC RBC Hgb Hct MCV MCH MCHC Differential RDW Plt Count MPV Neutrophils % Lymphocytes % Monocytes % Eosinophils % Basophils % Specimen Source Arterial Sample Site Right Radial pH 7.42 pCO2 49.0 H pO2 61.0 L HCO3 29.6 H Base Excess 6.2 H O2 Saturation 91.0 L Shamar Test YES Vent Rate NA Inspired O2 21 Tidal Volume NA PEEP NA Pressure (ins/psv/peep) NA Critical Value E.ARREOLA Sodium 133 L Potassium 4.0 Chloride 98 Carbon Dioxide 31.7 H Anion Gap 7.3 BUN 17 Creatinine 0.5 L Est GFR ( Amer) TNP Est GFR (Non-Af Amer) TNP BUN/Creatinine Ratio 34.0 Glucose 107 H POC Glucose 101 Calcium 8.8 Total Bilirubin 0.4 AST 21 ALT 17 Alkaline Phosphatase 78 B-Natriuretic Peptide Total Protein 6.3 Albumin 3.5 L Globulin 2.8 Albumin/Globulin Ratio 1.3 01/20/17 01/20/17 01/21/17 13:32 18:17 05:35 WBC RBC Hgb Hct MCV MCH MCHC Differential RDW Plt Count MPV Neutrophils % Lymphocytes % Monocytes % Eosinophils % Basophils % Specimen Source Sample Site pH pCO2 pO2 HCO3 Base Excess O2 Saturation Shamar Test Vent Rate Inspired O2 Tidal Volume PEEP Pressure (ins/psv/peep) Critical Value Sodium 132 L Potassium 4.4 Chloride 97 L Carbon Dioxide 30.3 Anion Gap 9.1 BUN 13 Creatinine 0.5 L Est GFR ( Amer) TNP Est GFR (Non-Af Amer) TNP BUN/Creatinine Ratio 26.0 Glucose 108 H POC Glucose 104 119 H Calcium 9.0 Total Bilirubin AST ALT Alkaline Phosphatase B-Natriuretic Peptide Total Protein Albumin Globulin Albumin/Globulin Ratio 01/21/17 01/21/17 05:35 05:35 WBC 6.4 D RBC 4.00 Hgb 12.2 L Hct 36.8 L MCV 92.0 MCH 30.6 MCHC Differential 33.2 RDW 12.7 Plt Count 202 MPV 9.0 Neutrophils % 71.1 Lymphocytes % 17.1 L Monocytes % 9.5 Eosinophils % 2.2 Basophils % 0.1 Specimen Source Sample Site pH pCO2 pO2 HCO3 Base Excess O2 Saturation Shamar Test Vent Rate Inspired O2 Tidal Volume PEEP Pressure (ins/psv/peep) Critical Value Sodium Potassium Chloride Carbon Dioxide Anion Gap BUN Creatinine Est GFR ( Amer) Est GFR (Non-Af Amer) BUN/Creatinine Ratio Glucose POC Glucose 115 H Calcium Total Bilirubin AST ALT Alkaline Phosphatase B-Natriuretic Peptide Total Protein Albumin Globulin Albumin/Globulin Ratio Hospital Course: 86 year old male who presents to [facility] ER from SNF for malfunctioning gtube. Patient was seen and evaluated by the ER physician and was noted to have malfunctioning gtube which was replaced. However the patient was noted to have increase hypoxemia. He has a previous history of COPD, dysphagia, s/p gtube placement, CHF and dementia. His initial Xray was negative. His WBCs was elevated @ 13.6K and his sodium level was noted to be 126. He was subsequently admitted for further evaluation and treatment. Treatment: The patient improved during his hospital stay. He was seen and evaluated by cardiology. Please see dictated report from Dr. Kaycee Prasad. Patient was also seen by pulmonary. Please see dictated report from Dr.D Prasad. Patient underwent venous doppler Us of the lower extremities which was negative for DVT. Patient had a chest xray which showed chronic changes consistent with COPD. Please see dictated report for further details. Patient had an echo done. please see dictated report. Patient had an upper GI series which confirmed the placement of the g-tube and feeding was restarted. Patient was subsequently discharged back to SNF in stable condition and continue current medication. Condition at Discharge: Stable Disposition: Discharge/Transfered to SNF Home Medications: Home Medication Medication Instructions Recorded Type Bisacodyl [Dulcolax 10 Mg Supp] 10 mg RC DAILY PRN #0 sup 07/14/16 Rx Fleet Enema 135 ml RC DAILY PRN #0 btl 07/14/16 Rx Acetaminophen 650 mg GT Q4HR PRN 08/23/16 History Levetiracetam [Keppra] 750 mg GT Q12HR 08/23/16 History Magnesium Hydroxide [Milk of 30 ml GT DAILY PRN 08/23/16 History Magnesia] Valproic Acid [Depakene] 500 mg GT Q12H 08/23/16 History cloNIDine HCl [Catapres] 0.1 mg GT Q8HR PRN 08/23/16 History Insulin Aspart, Recombinant 1 units SUBQ BID 11/21/16 History [NovoLOG] Phenytoin [Dilantin*] 300 mg GT TID 11/21/16 History Ascorbic Acid [Vitamin C] 500 mg PO DAILY 01/18/17 History Multivitamin [Multivitamins] 1 sgl GT DAILY 01/18/17 History Warfarin Sodium [Coumadin] 6.5 mg PO 1700 01/18/17 History Zinc Sulfate 220 mg PO DAILY 01/18/17 History Budesonide [Pulmicort] 0.5 mg HHN BIDRT ud 01/21/17 Rx Divalproex ER [Depakote ER] [address] 01/21/17 Rx Insulin Aspart Sliding Scale See Protocol SUBQ Q6HR unit 01/21/17 Rx [NovoLOG INSULIN SLIDING SCALE] Activity: Bed Rest Discharge Diet: Tube Feeding Consults and Follow-Up: Russel Gunn [Primary Care Provider] - Instructions: Hypoxemia
== END 2017-01-21 13:30 | disposition home or self-care (01) | DRG 393 ==
LOC: ER 10:35 → MSI 13:55
PROVIDERS: ADMIT Family Medicine; ATTEND Family Medicine
PROC: 0D20XUZ Change Feeding Device in Upper Intestinal Tract, External Approach (ICD-10-PCS; principal; 2017-01-18)
DX: K94.23 Gastrostomy malfunction (principal); J96.91 Respiratory failure, unspecified with hypoxia; J18.9 Pneumonia, unspecified organism; I11.0 Hypertensive heart disease with heart failure; J44.0 Chronic obstructive pulmonary disease with (acute) lower respiratory infection; R13.10 Dysphagia, unspecified; I50.32 Chronic diastolic (congestive) heart failure; F03.90 Unspecified dementia, unspecified severity, without behavioral disturbance, psychotic disturbance, mood disturbance, and anxiety; E87.1 Hypo-osmolality and hyponatremia; G40.909 Epilepsy, unspecified, not intractable, without status epilepticus; M19.90 Unspecified osteoarthritis, unspecified site; E86.0 Dehydration; N40.0 Benign prostatic hyperplasia without lower urinary tract symptoms; I69.30 Unspecified sequelae of cerebral infarction; E66.9 Obesity, unspecified; G47.33 Obstructive sleep apnea (adult) (pediatric); G83.24 Monoplegia of upper limb affecting left nondominant side; Y92.89 Other specified places as the place of occurrence of the external cause; Y83.8 Other surgical procedures as the cause of abnormal reaction of the patient, or of later complication, without mention of misadventure at the time of the procedure; I25.10 Atherosclerotic heart disease of native coronary artery without angina pectoris; F29 Unspecified psychosis not due to a substance or known physiological condition; Z88.0 Allergy status to penicillin; Z68.35 Body mass index [BMI] 35.0-35.9, adult; Z79.4 Long term (current) use of insulin
CPT/HCPCS: 36415-UA; 71010-TC; 80048-TC; 80053-TC; 80061-TC; 80164-TC; 80185-TC; 81001-TC; 82803-TC; 82948-90; 83605; 83880-TC; 84443-TC; 84484-TC; 85007-TC; 85025-TC; 85027-TC; 85610-TC; 85730-TC; 86592-TC; 90732; 93005; 93971-TC-RT; 94640; 94760; J0696; J7030; Z7610

== ENCOUNTER 2017-03-06 22:06 | Inpatient (IN) | payer MEDICARE, MEDICAID ==
[2017-03-06 22:34] LABS: MEAN CORPUSCULAR HEMOGLOBIN 30.9 pg (27.0-31.0)
[2017-03-06 22:37] LABS: % BASOPHILS 0.6 % (0.0-2.0); % EOSINOPHILS 0.6 % (0.0-5.0); % LYMPHOCYTES 5.8 % (20.0-50.0); % MONOCYTES 5.2 % (2.0-10.0); % NEUTROPHILS 87.8 % (40.0-80.0); HEMOGLOBIN 13.5 gm/dL (12-16); MEAN CORPUSCULAR HGB CONC 33.9 pg (28.0-36.0); MEAN PLATELET VOLUME 7.9 fl; NEUTROPHILE ABSOLUTE 12.1 Th/cmm (1.8-8.0); RED BLOOD COUNT 4.39 Mil/cmm (3.80-5.80); RED CELL DISTRIBUTION WIDTH 12.7 % (11.5-20.0)
[2017-03-06 22:45] LABS: WHITE BLOOD COUNT 13.8 Th/cmm (4.8-10.8)
[2017-03-06 22:46] LABS: PLATELET COUNT 278 Th/cmm (150-400)
--- NOTE | 2017-03-06 22:56 | ED Physician Chart ---
ED Chief Complaint/HPI - Patient Information Date Seen:: 03/06/17 Time Seen:: 22:11 Chief Complaint:: COFFEE GROUND VOMITING History of Present Illness:: THIS IS AN 86 YEAR FREQUENT FLYER SENT FROM THE [facility] FOR EVALUATION AND TREATMENT FOR COFFEE GROUND VOMITING TODAY. HE CHRONICALLY ILL WITH CVA, DEMENTIA,DIABETES MELLITUS,SEIZURES, COPD AND CHF. Allergies:: Allergies Allergy/AdvReac Type Severity Reaction Status Date / Time Penicillins Allergy Verified 03/06/17 22:10 Vitals:: Vital Signs - 8 hr 03/06/17 22:10 Temp 98.9 F HR 94 RR 24 BP 130/66 O2 Sat % 90 Historian:: Medical Records Review:: Nurse's Note Reviewed, Old Chart Reviewed, Transfer documents Reviewed ED Review of Systems - Review of Systems General/Constitutional: No fever, No chills, No weight loss, No weakness, No diaphoresis, No edema, No loss of appetite, Other (THIS PATIENT IS UNABLE TO GIVE A REVIEW OF SYSTEMS.) Skin: No skin lesions, No rash, No bruising Head: No headache, No light-headedness Eyes: No loss of vision, No pain, No diplopia ENT: No earache, No nasal drainage, No sore throat, No tinnitus Neck: No neck pain, No swelling, No thyromegaly, No stiffness, No mass noted Cardio Vascular: No chest pain, No palpitations, No PND, No orthopnea, No edema Pulmonary: No SOB, No cough, No sputum, No wheezing GI: No nausea, No vomiting, No diarrhea, No pain, No melena, No hematochezia, No constipation, No hematemesis G/U: No dysuria, No frequency, No hematuria Musculoskeletal: No bone or joint pain, No back pain, No muscle pain Endocrine: No polyuria, No polydipsia Psychiatric: No prior psych history, No depression, No anxiety, No suicidal ideation Hematopoietic: No bruising, No lymphadenopathy Allergic/Immuno: No urticaria, No angioedema Neurological: No syncope, No focal symptoms, No weakness, No paresthesia, No headache, No seizure, No dizziness, No confusion, No vertigo ED Past Medical History - Past Medical History Obtainable: Yes Past Medical History: HTN, DM, CAD, CHF, Asthma/COPD, CVA/TIA, Seizures, Dementia Family History: None Social History: Non Smoker, No Alcohol, No Drug Use, Care Facility Surgical History: PEG/GTube Psychiatricy History: Dementia Medication: Reviewed Family Medical History - Family Member Father History Unknown: Yes Ethnicity: Non- Living Status: Unknown Mother History Unknown: Yes ED Physical Exam - Physical Examination General/Constitutional: Awake, Well-developed, well-nourished, Alert, No distress, GCS 15, Non-toxic appearing, Ambulatory Other Gen/Cons comments:: HE CANNOT FOLLOW OR UNDERSTAND VERBAL STIMULATION. HE HAS LOUD MOUTH BREATHING Head: Atraumatic Eyes: Lids, conjuctiva normal, PERRL, EOMI Skin: Nl inspection, No rash, No skin lesions, No ecchymosis, Well hydrated, No lymphadenopathy ENMT: External ears, nose nl, Nasal exam nl, Lips, teeth, gums nl Neck: Nontender, Full ROM w/o pain, No JVD, No nuchal rigidity, No bruit, No mass, No stridor Respiratory: Nl effort/Exclusion, Clear to Auscultation, No Wheeze/Rhonchi/Rales Cardio Vascular: RRR, No murmur, gallop, rubs, NL S1 S2 GI: No tenderness/rebounding/guarding, No organomegaly, No hernia, Normal BS's, Nondistended, No mass/bruits, No McBurney tenderness Other GI comments:: GL-TUBE IN PLACE AND FUNCTIONING NORMALLY. ABDOMEN IS SOFT WITH NO MASSES. : No CVA tenderness Extremities: No tenderness or effusion, Full ROM, normal strength in all extremities, No edema, Normal digits & nails Neuro/Psych: Alert/oriented, DTR's symmetric, Normal sensory exam, Normal motor strength, Normal gait, No focal deficits Other Neuro/Psych comments:: PARTIAL PARALYSIS OF THE LEFT UPPER EXTREMITY AND BOTH LOWER EXTREMITIES. Misc: normal gait, Normal back, No paraspinal tenderness ED Labs/Radiology/EKG Results - Lab Results Results: Laboratory Tests 03/06/17 22:24 WBC 13.8 H D RBC 4.39 Hgb 13.5 Hct 40.0 L MCV 91.0 MCH 30.9 MCHC Differential 33.9 RDW 12.7 Plt Count 278 D MPV 7.9 Neutrophils % 87.8 H Lymphocytes % 5.8 L Monocytes % 5.2 Eosinophils % 0.6 Basophils % 0.6 Abnormal Lab Results 03/06/17 03/06/17 03/06/17 22:24 22:24 22:24 WBC 13.8 H D RBC 4.39 Hgb 13.5 Hct 40.0 L MCV 91.0 MCH 30.9 MCHC Differential 33.9 RDW 12.7 Plt Count 278 D MPV 7.9 Neutrophils % 87.8 H Lymphocytes % 5.8 L Monocytes % 5.2 Eosinophils % 0.6 Basophils % 0.6 PT 32.1 H INR 2.92 H PTT (Actin FS) 42.9 H Sodium Potassium Chloride Carbon Dioxide Anion Gap BUN Creatinine Est GFR ( Amer) Est GFR (Non-Af Amer) BUN/Creatinine Ratio Glucose Whole Bld Lactic Acid Calcium Total Bilirubin AST ALT Alkaline Phosphatase Troponin I Total Protein Albumin Globulin Albumin/Globulin Ratio Triglycerides 107 Cholesterol 145 LDL Cholesterol Direct 84 HDL Cholesterol 51 Urine Source Urine Color Urine Clarity Urine pH Ur Specific [place] Urine Protein Urine Glucose (UA) Urine Ketones Urine Blood Urine Nitrate Urine Bilirubin Urine Urobilinogen Ur Leukocyte Esterase Urine RBC Urine WBC Ur Epithelial Cells Urine Bacteria Phenytoin Valproic Acid 03/06/17 03/06/17 03/06/17 22:24 22:24 22:24 WBC RBC Hgb Hct MCV MCH MCHC Differential RDW Plt Count MPV Neutrophils % Lymphocytes % Monocytes % Eosinophils % Basophils % PT INR PTT (Actin FS) Sodium 121 L Potassium 4.5 Chloride 87 L Carbon Dioxide 29.1 Anion Gap 9.4 BUN 18 Creatinine 0.4 L Est GFR ( Amer) TNP Est GFR (Non-Af Amer) TNP BUN/Creatinine Ratio 45.0 Glucose 119 H Whole Bld Lactic Acid Calcium 8.9 Total Bilirubin 0.3 AST 19 ALT 21 Alkaline Phosphatase 106 H Troponin I 0.01 Total Protein 7.1 Albumin 3.6 L Globulin 3.5 Albumin/Globulin Ratio 1.0 Triglycerides Cholesterol LDL Cholesterol Direct HDL Cholesterol Urine Source Urine Color Urine Clarity Urine pH Ur Specific [place] Urine Protein Urine Glucose (UA) Urine Ketones Urine Blood Urine Nitrate Urine Bilirubin Urine Urobilinogen Ur Leukocyte Esterase Urine RBC Urine WBC Ur Epithelial Cells Urine Bacteria Phenytoin 17.5 Valproic Acid 03/06/17 03/06/17 03/06/17 22:24 22:35 Unknown WBC RBC Hgb Hct MCV MCH MCHC Differential RDW Plt Count MPV Neutrophils % Lymphocytes % Monocytes % Eosinophils % Basophils % PT INR PTT (Actin FS) Sodium Potassium Chloride Carbon Dioxide Anion Gap BUN Creatinine Est GFR ( Amer) Est GFR (Non-Af Amer) BUN/Creatinine Ratio Glucose Whole Bld Lactic Acid 0.95 Calcium Total Bilirubin AST ALT Alkaline Phosphatase Troponin I Total Protein Albumin Globulin Albumin/Globulin Ratio Triglycerides Cholesterol LDL Cholesterol Direct HDL Cholesterol Urine Source CLEAN C Urine Color YELLOW Urine Clarity CLEAR Urine pH 7.5 Ur Specific [place] 1.015 Urine Protein 100 H Urine Glucose (UA) NEGATIVE Urine Ketones NEGATIVE Urine Blood SMALL H Urine Nitrate NEGATIVE Urine Bilirubin NEGATIVE Urine Urobilinogen 0.2 Ur Leukocyte Esterase NEGATIVE Urine RBC 2-5 H Urine WBC NONE SEEN Ur Epithelial Cells NONE SEEN Urine Bacteria NONE SEEN Phenytoin Valproic Acid 39.1 L - EKG Interpretations EKG Time:: 23:36 Rate & Rhythm: RATE = 87, SINUS [place]: LEFT AXIS ED Assessment - Assessment General Assessment: DEHYDRATION ED Septic Shock - . Is Septic Shock (SBP<90, OR Lactate>4 mmol\L) present?: No - <6hrs of presentation: Vital Signs: Vital Signs - 8 hr 03/06/17 22:10 Temp 98.9 F HR 94 RR 24 BP 130/66 O2 Sat % 90 ED Reassessment (Disposition) - Reassessment Reassessment Condition:: Unchanged - Diagnosis Diagnosis:: DEHYDRATION LOW [place] - Patient Disposition Discharge/Transfer:: Acute Care w/in this hosp Admitting Psych Physician:: Vazquez Gunn ED Discharge Plan - Patient Disposition Admit/Discharge/Transfer: Acute Care w/in this hosp Condition at Disposition: Unchanged
[2017-03-06 23:01] LABS: ALKALINE PHOSPHATASE 106 U/L (34-104); ANION GAP 9.4 (7.0-16.0); BILIRUBIN,TOTAL 0.3 mg/dL (0.3-1.0); BUN - UREA NITROGEN 18 mg/dL (7-25); CALCIUM SERUM 8.9 mg/dL (8.6-10.3); CARBON DIOXIDE 29.1 mEq/L (21.0-31.0); CHLORIDE 87 mEq/L (98-107); CHOLESTEROL 145 mg/dL (<200); CREATININE - SERUM 0.4 mg/dL (0.7-1.3); GLUCOSE 119 mg/dL (70-105); POTASSIUM SERUM 4.5 mEq/L (3.5-5.1); SGOT 19 U/L (13-39); SGPT/ALT 21 U/L (7-52); SODIUM SERUM 121 mEq/L (136-145); TRIGLYCERIDES 107 mg/dL (<150)
[2017-03-06 23:06] LABS: URINE BILIRUBIN NEGATIVE (NEGATIVE); URINE BLOOD SMALL (NEGATIVE); URINE GLUCOSE (UA) NEGATIVE (NEGATIVE); URINE KETONE NEGATIVE (NEGATIVE); URINE PH 7.5 (4.6 - 8.0); URINE PROTEIN 100 mg/dL (NEGATIVE); URINE UROBILINOGEN 0.2 E.U./dL (0.2 - 1.0)
[2017-03-06 23:08] LABS: URINE COLOR YELLOW
[2017-03-06 23:09] LABS: URINE BACTERIA NONE SEEN /hpf (NONE SEEN); URINE EPITHELIAL CELLS NONE SEEN /lpf (FEW); URINE WBC NONE SEEN /hpf (0-5)
[2017-03-06 23:11] LABS: INR 2.92 (0.5-1.4); PROTHROMBIN TIME (TEST) 32.1 SECONDS (9.5-11.5)
[2017-03-07] MEDS ORDERED: Sodium Chloride 0.9% 1,000 ML IV SCH ×2 (00:02→07:15)
[2017-03-07 00:38] VITALS: BP 137/70
[2017-03-07] MEDS ORDERED: Fleet Enema 135 mL RC PRN (00:40)
[2017-03-07] MEDS ORDERED: Magnesium Hydroxide (MOM) 30 mL UDC GT PRN (00:40)
[2017-03-07 05:22] LABS: % BASOPHILS 0.1 % (0.0-2.0); % EOSINOPHILS 0.3 % (0.0-5.0); % LYMPHOCYTES 10.4 % (20.0-50.0); % MONOCYTES 6.1 % (2.0-10.0); % NEUTROPHILS 83.1 % (40.0-80.0); HEMATOCRIT 37.3 % (41.0-60); HEMOGLOBIN 12.7 gm/dL (12-16); MEAN CELL VOLUME 91.2 fl (80-99); MEAN CORPUSCULAR HEMOGLOBIN 30.9 pg (27.0-31.0); MEAN CORPUSCULAR HGB CONC 33.9 pg (28.0-36.0); MEAN PLATELET VOLUME 8.1 fl; PLATELET COUNT 245 Th/cmm (150-400); RED CELL DISTRIBUTION WIDTH 12.6 % (11.5-20.0)
[2017-03-07 05:43] LABS: WHITE BLOOD COUNT 10.8 Th/cmm (4.8-10.8)
[2017-03-07 05:54] LABS: ALKALINE PHOSPHATASE 93 U/L (34-104); ANION GAP 7.8 (7.0-16.0); BILIRUBIN,TOTAL 0.3 mg/dL (0.3-1.0); BUN - UREA NITROGEN 17 mg/dL (7-25); BUN/CREATININE RATIO 42.5; CALCIUM SERUM 8.6 mg/dL (8.6-10.3); CARBON DIOXIDE 29.5 mEq/L (21.0-31.0); CHLORIDE 90 mEq/L (98-107); CREATININE - SERUM 0.4 mg/dL (0.7-1.3); GLUCOSE 108 mg/dL (70-105); POTASSIUM SERUM 4.3 mEq/L (3.5-5.1); SGOT 18 U/L (13-39); SGPT/ALT 17 U/L (7-52); SODIUM SERUM 123 mEq/L (136-145)
--- NOTE | 2017-03-07 07:28 | History and Physical ---
History of Present Illness - HPI Chief Complaint: coffee ground emesis HPI: 86 y/o male who presents to [facility] ER for evaluation of coffee ground emesis noted by the nursing staff at SNF. He has a previous history of CVA, dementia, diabetes mellitus, seizures, copd, and chf. While in the ER he was found to have WBC 13.8 H/H 13.5/40 platelets 278K. PT/INR 32.1/ 2.92. His Na+ 121 BUN 18 creatinine 0.4 He was subsequently admitted for further evaluation and treatment. 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: Report: CVA, Dementia, Seizure, TIA GI: Report: Other (PEG placement) Psych: Report: No Pertinent Hx Musculoskeletal: Report: No Pertinent Hx Rheumatologic: Report: No pertinent Hx Infectious Disease: Report: No Pertinent Hx Renal/: Report: No Pertinent Hx Endocrine: Report: Diabetes Dermatology: Report: No Pertinent Hx - Past Surgical History Past Surgical History: No pertinent Hx Family Medical History - Family Member Father History Unknown: Yes Ethnicity: Non- Living Status: Unknown Mother History Unknown: Yes Social History Smoke: No Alcohol: None Drugs: None Lives: Intermediate - Medications Home Medications: Home Medication Medication Instructions Recorded Type Bisacodyl [Dulcolax 10 Mg Supp] 10 mg RC DAILY PRN #0 sup 07/14/16 Rx Fleet Enema 135 ml RC DAILY PRN #0 btl 07/14/16 Rx Acetaminophen 650 mg GT Q4HR PRN 08/23/16 History Levetiracetam [Keppra] 750 mg GT Q12HR 08/23/16 History Magnesium Hydroxide [Milk of 30 ml GT DAILY PRN 08/23/16 History Magnesia] Valproic Acid [Depakene] 500 mg GT Q12H 08/23/16 History cloNIDine HCl [Catapres] 0.1 mg GT Q8HR PRN 08/23/16 History Phenytoin [Dilantin*] 300 mg GT TID 11/21/16 History Ascorbic Acid [Vitamin C] 500 mg GT DAILY 01/18/17 History Multivitamin [Multivitamins] 1 tab GT DAILY 01/18/17 History Zinc Sulfate 220 mg GT DAILY 01/18/17 History Budesonide [Pulmicort] 0.5 mg IH BID 03/06/17 History Insulin Aspart Sliding Scale See Protocol SUBQ ACHS 03/06/17 History [NovoLOG INSULIN SLIDING SCALE] Warfarin Sodium [Coumadin] 7.5 mg GT DAILY 03/06/17 History - Allergies Allergies/Adverse Reactions: Allergies Allergy/AdvReac Type Severity Reaction Status Date / Time Penicillins Allergy Verified 03/06/17 22:10 Review of Systems - Review of Systems Constitutional: Report: No Significant Eyes: Report: No Significant ENT: Report: Ear Pain Respiratory: Report: No Significant Cardiovascular: Report: No Significant Gastrointestinal: Report: No Significant Genitourinary: Report: No Significant Musculoskeletal: Report: No Significant Skin: Report: No Significant Neurological: Report: No Significant Physical Exam - Physical Exam HEENT: Report: Ears Nose Throat within normal limits, Pharnyx within normal limits Neck: Report: Within normal limits Cardiovascular Systems: Report: +s1/s2 noted, Regular, Rate and Rhythm Respiratory: Report: Breath Sounds are within normal limits, Clear to Auscultation of lung alarcon Abdomen: Report: Non-tender to palpation Back: Report: Inspection of back is within normal limits. Extremities: Report: Non-tender to palpation. Skin: Report: Color of skin is within normal limits Neuro/Psych: Report: Mood affect is within normal limits - Lab Results All Lab Results last 24 hours: Laboratory Last Values WBC 10.8 Th/cmm (4.8-10.8) D 03/07/17 04:58 RBC 4.10 Mil/cmm (3.80-5.80) 03/07/17 04:58 Hgb 12.7 gm/dL (12-16) 03/07/17 04:58 Hct 37.3 % (41.0-60) L 03/07/17 04:58 MCV 91.2 fl (80-99) 03/07/17 04:58 MCH 30.9 pg (27.0-31.0) 03/07/17 04:58 MCHC Differential 33.9 pg (28.0-36.0) 03/07/17 04:58 RDW 12.6 % (11.5-20.0) 03/07/17 04:58 Plt Count 245 Th/cmm (150-400) 03/07/17 04:58 MPV 8.1 fl 03/07/17 04:58 Neutrophils % 83.1 % (40.0-80.0) H 03/07/17 04:58 Lymphocytes % 10.4 % (20.0-50.0) L 03/07/17 04:58 Monocytes % 6.1 % (2.0-10.0) 03/07/17 04:58 Eosinophils % 0.3 % (0.0-5.0) 03/07/17 04:58 Basophils % 0.1 % (0.0-2.0) 03/07/17 04:58 PT 32.1 SECONDS (9.5-11.5) H 03/06/17 22:24 INR 2.92 (0.5-1.4) H 03/06/17 22:24 PTT (Actin FS) 42.9 SECONDS (26.0-38.0) H 03/06/17 22:24 Sodium 123 mEq/L (136-145) L 03/07/17 04:58 Potassium 4.3 mEq/L (3.5-5.1) 03/07/17 04:58 Chloride 90 mEq/L (98-107) L 03/07/17 04:58 Carbon Dioxide 29.5 mEq/L (21.0-31.0) 03/07/17 04:58 Anion Gap 7.8 (7.0-16.0) 03/07/17 04:58 BUN 17 mg/dL (7-25) 03/07/17 04:58 Creatinine 0.4 mg/dL (0.7-1.3) L 03/07/17 04:58 Est GFR ( Amer) TNP 03/07/17 04:58 Est GFR (Non-Af Amer) TNP 03/07/17 04:58 BUN/Creatinine Ratio 42.5 03/07/17 04:58 Glucose 108 mg/dL (70-105) H 03/07/17 04:58 Whole Bld Lactic Acid 0.95 mmol/L (0.60-1.99) 03/06/17 Unknown Calcium 8.6 mg/dL (8.6-10.3) 03/07/17 04:58 Total Bilirubin 0.3 mg/dL (0.3-1.0) 03/07/17 04:58 AST 18 U/L (13-39) 03/07/17 04:58 ALT 17 U/L (7-52) 03/07/17 04:58 Alkaline Phosphatase 93 U/L (34-104) 03/07/17 04:58 Troponin I 0.01 ng/mL (0.01-0.05) 03/06/17 22:24 Total Protein 6.5 gm/dL (6.0-8.3) 03/07/17 04:58 Albumin 3.3 gm/dL (4.2-5.5) L 03/07/17 04:58 Globulin 3.2 gm/dL 03/07/17 04:58 Albumin/Globulin Ratio 1.0 (1.0-1.8) 03/07/17 04:58 Triglycerides 107 mg/dL (<150) 03/06/17 22:24 Cholesterol 145 mg/dL (<200) 03/06/17 22:24 LDL Cholesterol Direct 84 mg/dL (75-193) 03/06/17 22:24 HDL Cholesterol 51 mg/dL (23-92) 03/06/17 22:24 TSH 1.88 uIU/ml (0.34-5.60) 03/06/17 22:24 Urine Source CLEAN C 03/06/17 22:35 Urine Color YELLOW 03/06/17 22:35 Urine Clarity CLEAR (CLEAR) 03/06/17 22:35 Urine pH 7.5 (4.6 - 8.0) 03/06/17 22:35 Ur Specific [place] 1.015 (1.005-1.030) 03/06/17 22:35 Urine Protein 100 mg/dL (NEGATIVE) H 03/06/17 22:35 Urine Glucose (UA) NEGATIVE mg/dL (NEGATIVE) 03/06/17 22:35 Urine Ketones NEGATIVE mg/dL (NEGATIVE) 03/06/17 22:35 Urine Blood SMALL (NEGATIVE) H 03/06/17 22:35 Urine Nitrate NEGATIVE (NEGATIVE) 03/06/17 22:35 Urine Bilirubin NEGATIVE (NEGATIVE) 03/06/17 22:35 Urine Urobilinogen 0.2 E.U./dL (0.2 - 1.0) 03/06/17 22:35 Ur Leukocyte Esterase NEGATIVE (NEGATIVE) 03/06/17 22:35 Urine RBC 2-5 /hpf (0-5) H 03/06/17 22:35 Urine WBC NONE SEEN /hpf (0-5) 03/06/17 22:35 Ur Epithelial Cells NONE SEEN /lpf (FEW) 03/06/17 22:35 Urine Bacteria NONE SEEN /hpf (NONE SEEN) 03/06/17 22:35 Phenytoin 17.5 ug/ml (10.0-20.0) 03/06/17 22:24 Valproic Acid 39.1 ug/mL (50.0-100.0) L 03/06/17 22:24 Laboratory Results - last 24 hr 03/06/17 03/07/17 03/07/17 Unknown 04:58 04:58 WBC 10.8 D RBC 4.10 Hgb 12.7 Hct 37.3 L MCV 91.2 MCH 30.9 MCHC Differential 33.9 RDW 12.6 Plt Count 245 MPV 8.1 Neutrophils % 83.1 H Lymphocytes % 10.4 L Monocytes % 6.1 Eosinophils % 0.3 Basophils % 0.1 Sodium 123 L Potassium 4.3 Chloride 90 L Carbon Dioxide 29.5 Anion Gap 7.8 BUN 17 Creatinine 0.4 L Est GFR ( Amer) TNP Est GFR (Non-Af Amer) TNP BUN/Creatinine Ratio 42.5 Glucose 108 H Whole Bld Lactic Acid 0.95 Calcium 8.6 Total Bilirubin 0.3 AST 18 ALT 17 Alkaline Phosphatase 93 Total Protein 6.5 Albumin 3.3 L Globulin 3.2 Albumin/Globulin Ratio 1.0 - Assessment Assessment: dehydration hyponatremia CVA Dementia Diabetes mellitus Seizure disorder COPD CHF - Plan Plan: dehydration -- continue IV fluids hyponatremia -- repeat BMP, TSH, renal consult, CVA Dementia Diabetes mellitus Seizure disorder COPD ... continue alb treatment. CHF ... chest xray, BNP
[2017-03-07] MEDS: INSULIN ASPART SLIDING SCALE 100 UNITS/ML UNIT SUBQ SCH ×4 (07:31→21:34)
[2017-03-07] MEDS: Budesonide 0.5 Mg/2 mL Ud HHN SCH ×2 (07:38→19:08)
[2017-03-07] MEDS: Levetiracetam 500 mg/5mL 5mL UDC GT SCH ×2 (09:28→21:27)
[2017-03-07] MEDS: Multivitamin Tab GT SCH (09:28)
--- NOTE | 2017-03-07 23:08 | Consultation ---
DATE OF CONSULTATION: HISTORY OF PRESENT ILLNESS: This is an 86-year-old patient who was brought into [facility] for evaluation due to coffee-ground emesis noted in the group home. He had a previous history of CVA, dementia, diabetes mellitus, seizure disorder, COPD, and congestive heart failure. While he was in the emergency room, he has been found to have white blood cell count 13,000, platelets of 287,000 with some degree of hyponatremia of 121, BUN of 18 and a creatinine of 0.4. He was subsequently admitted to the hospital ____. PAST MEDICAL HISTORY: CVA, congestive heart failure, hypertension, ____ COPD, asthma, dementia, seizure disorder, TIA, presence of a PEG placement, and diabetes. SURGICAL HISTORY: Negative other than the PEG tube placement. MEDICATIONS: Medication review coming from home; he is on Fleet enema, acetaminophen, Keppra 750 q.12, magnesium, valproic acid, Depakene, clonidine for hypertension, Dilantin, vitamin supplementation, insulin sliding scale, and Coumadin. PHYSICAL EXAMINATION: VITAL SIGNS: Temperature is 98.7, blood pressure is 99/62, respiratory rate of 18, O2 sat of 97. Intake and output of this patient 300, output is unclear ____. Weight is 92.5. CHEST: Rales were noted in bilateral lung bases. HEART: Regular sinus. ABDOMEN: Soft, bowel sounds are present. EXTREMITIES: There is dependent edema of the back and the presence of +1 edema of the lower extremities. LABORATORY STUDIES: Noted. IMPRESSION: Hyponatremia secondary to dilutional hyponatremia. We will take ____, will need a chest x-ray. We will give him Lasix one dose and periodically follow up electrolytes on this patient. Recheck his thyroid function. If there is any evidence ____ SIADH, I doubt it with the presence of edema in this patient. [facility]# [id number]
[2017-03-08 06:14] LABS: PROTHROMBIN TIME (TEST) 55.6 SECONDS (9.5-11.5)
[2017-03-08 06:21] LABS: ALB/GLOB RATIO 1.1 (1.0-1.8); ALKALINE PHOSPHATASE 99 U/L (34-104); ANION GAP 9.7 (7.0-16.0); BILIRUBIN,TOTAL 0.3 mg/dL (0.3-1.0); BUN - UREA NITROGEN 17 mg/dL (7-25); BUN/CREATININE RATIO 42.5; CALCIUM SERUM 8.7 mg/dL (8.6-10.3); CARBON DIOXIDE 30.3 mEq/L (21.0-31.0); CHLORIDE 92 mEq/L (98-107); CREATININE - SERUM 0.4 mg/dL (0.7-1.3); GLUCOSE 118 mg/dL (70-105); SGOT 20 U/L (13-39); SGPT/ALT 19 U/L (7-52); SODIUM SERUM 128 mEq/L (136-145)
[2017-03-08] MEDS: Budesonide 0.5 Mg/2 mL Ud HHN SCH ×2 (06:58→18:38)
[2017-03-08] MEDS: INSULIN ASPART SLIDING SCALE 100 UNITS/ML UNIT SUBQ SCH ×4 (07:02→22:10)
--- NOTE | 2017-03-08 07:41 | Diagnostic Imaging Report ---
Exam: Chest portable HISTORY congestive heart failure. Findings: Portable examination of chest 1140 hours reviewed. No prior studies available for comparison. Bony thorax is intact. Mediastinal structures midline. The heart is prominent. The aortic arch calcified. The costophrenic angles are clear. There is no evidence for active pulmonic infiltrates or effusions. IMPRESSION: Prominence of the heart. No evidence for congestive heart failure.
[2017-03-08] MEDS ORDERED: Potassium Chloride 20 mEq ER Tab PO ONE (08:12)
[2017-03-08] MEDS ORDERED: 0.9% NS w/20 mEq KCL 1,000 ML IV SCH (08:15)
[2017-03-08 08:25] LABS: INR 4.92 (0.5-1.4)
--- NOTE | 2017-03-08 08:35 | General Progress Note ---
Subjective - Review of Systems Service Date: 03/08/17 Subjective: Patient was seen and examined this morning. no acute distress, afebrile. more awake and alert. Objective - Results Result Diagrams: 03/07/17 04:58 03/08/17 05:07 Recent Labs: Laboratory Last Values WBC 10.8 Th/cmm (4.8-10.8) D 03/07/17 04:58 RBC 4.10 Mil/cmm (3.80-5.80) 03/07/17 04:58 Hgb 12.7 gm/dL (12-16) 03/07/17 04:58 Hct 37.3 % (41.0-60) L 03/07/17 04:58 MCV 91.2 fl (80-99) 03/07/17 04:58 MCH 30.9 pg (27.0-31.0) 03/07/17 04:58 MCHC Differential 33.9 pg (28.0-36.0) 03/07/17 04:58 RDW 12.6 % (11.5-20.0) 03/07/17 04:58 Plt Count 245 Th/cmm (150-400) 03/07/17 04:58 MPV 8.1 fl 03/07/17 04:58 Neutrophils % 83.1 % (40.0-80.0) H 03/07/17 04:58 Lymphocytes % 10.4 % (20.0-50.0) L 03/07/17 04:58 Monocytes % 6.1 % (2.0-10.0) 03/07/17 04:58 Eosinophils % 0.3 % (0.0-5.0) 03/07/17 04:58 Basophils % 0.1 % (0.0-2.0) 03/07/17 04:58 PT 55.6 SECONDS (9.5-11.5) H 03/08/17 05:07 INR 2.92 (0.5-1.4) H 03/06/17 22:24 PTT (Actin FS) 42.9 SECONDS (26.0-38.0) H 03/06/17 22:24 Sodium 128 mEq/L (136-145) L 03/08/17 05:07 Potassium 4.0 mEq/L (3.5-5.1) 03/08/17 05:07 Chloride 92 mEq/L (98-107) L 03/08/17 05:07 Carbon Dioxide 30.3 mEq/L (21.0-31.0) 03/08/17 05:07 Anion Gap 9.7 (7.0-16.0) 03/08/17 05:07 BUN 17 mg/dL (7-25) 03/08/17 05:07 Creatinine 0.4 mg/dL (0.7-1.3) L 03/08/17 05:07 Est GFR ( Amer) TNP 03/08/17 05:07 Est GFR (Non-Af Amer) TNP 03/08/17 05:07 BUN/Creatinine Ratio 42.5 03/08/17 05:07 Glucose 118 mg/dL (70-105) H 03/08/17 05:07 POC Glucose 102 MG/DL (70 - 105) 03/08/17 06:51 Whole Bld Lactic Acid 0.95 mmol/L (0.60-1.99) 03/06/17 Unknown Calcium 8.7 mg/dL (8.6-10.3) 03/08/17 05:07 Total Bilirubin 0.3 mg/dL (0.3-1.0) 03/08/17 05:07 AST 20 U/L (13-39) 03/08/17 05:07 ALT 19 U/L (7-52) 03/08/17 05:07 Alkaline Phosphatase 99 U/L (34-104) 03/08/17 05:07 Troponin I 0.01 ng/mL (0.01-0.05) 03/06/17 22:24 B-Natriuretic Peptide 47.1 pg/mL (5.0-100.0) 03/07/17 07:35 Total Protein 6.4 gm/dL (6.0-8.3) 03/08/17 05:07 Albumin 3.3 gm/dL (4.2-5.5) L 03/08/17 05:07 Globulin 3.1 gm/dL 03/08/17 05:07 Albumin/Globulin Ratio 1.1 (1.0-1.8) 03/08/17 05:07 Triglycerides 107 mg/dL (<150) 03/06/17 22:24 Cholesterol 145 mg/dL (<200) 03/06/17 22:24 LDL Cholesterol Direct 84 mg/dL (75-193) 03/06/17 22:24 HDL Cholesterol 51 mg/dL (23-92) 03/06/17 22:24 TSH 1.88 uIU/ml (0.34-5.60) 03/06/17 22:24 Urine Source CLEAN C 03/06/17 22:35 Urine Color YELLOW 03/06/17 22:35 Urine Clarity CLEAR (CLEAR) 03/06/17 22:35 Urine pH 7.5 (4.6 - 8.0) 03/06/17 22:35 Ur Specific [place] 1.015 (1.005-1.030) 03/06/17 22:35 Urine Protein 100 mg/dL (NEGATIVE) H 03/06/17 22:35 Urine Glucose (UA) NEGATIVE mg/dL (NEGATIVE) 03/06/17 22:35 Urine Ketones NEGATIVE mg/dL (NEGATIVE) 03/06/17 22:35 Urine Blood SMALL (NEGATIVE) H 03/06/17 22:35 Urine Nitrate NEGATIVE (NEGATIVE) 03/06/17 22:35 Urine Bilirubin NEGATIVE (NEGATIVE) 03/06/17 22:35 Urine Urobilinogen 0.2 E.U./dL (0.2 - 1.0) 03/06/17 22:35 Ur Leukocyte Esterase NEGATIVE (NEGATIVE) 03/06/17 22:35 Urine RBC 2-5 /hpf (0-5) H 03/06/17 22:35 Urine WBC NONE SEEN /hpf (0-5) 03/06/17 22:35 Ur Epithelial Cells NONE SEEN /lpf (FEW) 03/06/17 22:35 Urine Bacteria NONE SEEN /hpf (NONE SEEN) 03/06/17 22:35 Phenytoin 17.5 ug/ml (10.0-20.0) 03/06/17 22:24 Valproic Acid 39.1 ug/mL (50.0-100.0) L 03/06/17 22:24 - Physical Exam Vitals and I&O: Vital Signs Temp 98.6 F 03/08/17 07:49 Pulse 74 03/08/17 07:49 Resp 19 03/08/17 07:49 BP 147/77 03/08/17 07:49 Pulse Ox 93 03/08/17 07:49 Intake & Output 03/07/17 03/08/17 03/08/17 18:59 06:59 18:59 Intake Total 300 450 Balance 300 450 Weight (lbs) 92.533 kg 92.533 kg Intake: Oral 0 Tube Feeding 300 450 Other: # Voids 3 # Bowel Movements 1 1 Stool Characteristics Soft Formed Brown Active Medications: Current Medications Acetaminophen (Tylenol 650mg/20.3ml Suspension) 650 mg GT Q4HR PRN PRN Reason: FEVER >100.4 OR FOR PAIN Stop: 05/06/17 00:39 Ascorbic Acid (Vitamin C) 500 mg GT DAILY [place] Stop: 05/06/17 08:59 Last Admin: 03/07/17 09:28 Dose: 500 mg Bisacodyl (Dulcolax 10 Mg Supp) 10 mg RC DAILY PRN PRN Reason: Constipation Stop: 05/06/17 00:39 Budesonide (Pulmicort) 0.5 mg HHN BIDRT [place] Stop: 05/06/17 06:59 Last Admin: 03/08/17 06:58 Dose: 0.5 mg Furosemide (Lasix) 40 mg IVP X1 ONE Stop: 03/08/17 08:12 Potassium Chloride/Sodium Chloride (0.9% Ns W/20 Meq Kcl) 1,000 mls @ 50 mls/ hr IV .Q20H [place] Stop: 05/07/17 08:14 Insulin Aspart (Novolog Insulin Sliding Scale) 0 units SUBQ ACHS [place] PRN Reason: Protocol Stop: 05/06/17 07:29 Last Admin: 03/08/17 07:02 Dose: Not Given Levetiracetam (Keppra) 750 mg GT Q12HR [place] Stop: 05/06/17 08:59 Last Admin: 03/07/17 21:27 Dose: 750 mg Magnesium Hydroxide (Milk Of Magnesia) 30 ml GT DAILY PRN PRN Reason: IF NO BM IN TWO DAYS Stop: 05/06/17 00:39 Multivitamins/Vitamin C (Theragran) 1 tab GT DAILY [place] Stop: 05/06/17 08:59 Last Admin: 03/07/17 09:28 Dose: 1 tab Phenytoin (Dilantin) 300 mg GT TID [place] Stop: 05/06/17 08:59 Last Admin: 03/07/17 21:27 Dose: 300 mg Potassium Chloride (Klor-Con) 20 meq PO X1 ONE Stop: 03/08/17 08:13 Sodium Phosphate (Fleet Enema) 135 ml RC DAILY PRN PRN Reason: IF MOM OR DULCOLAX INEFFECTIVE Stop: 05/06/17 00:39 Valproate Sodium (Depakene) 500 mg GT Q12HR [place] PRN Reason: Protocol Stop: 05/06/17 00:44 Last Admin: 03/07/17 21:26 Dose: 500 mg Warfarin Sodium (Coumadin) 7.5 mg GT C [place] Stop: 05/06/17 12:59 Last Admin: 03/07/17 12:13 Dose: 7.5 mg Warfarin Sodium (Coumadin Per Pharmacy) 1 ea MC PRN PRN; Protocol PRN Reason: RX MONITORING Stop: 05/07/17 08:13 Zinc Sulfate (Zinc Sulfate) 220 mg GT DAILY [place] Stop: 05/06/17 08:59 Last Admin: 03/07/17 09:28 Dose: 220 mg General: Alert, Oriented x3, No acute distress HEENT: Atraumatic, PERRLA, EOMI Neck: Supple Cardiovascular: Regular rate, Normal S1, Normal S2 Lungs: Clear to auscultation Abdomen: Bowel sounds, Soft Extremities: Edema (+1 pedal edema), no Clubbing, no Cyanosis - Procedures Procedures: Procedures Procedure Code Date CHANGE FEEDING DEVICE IN UP INTEST TRACT, TIMBER SIZER OPERATOR APPROACH [id number] 01/18/17 CHANGE GASTROSTOMY TUBE 74331 01/18/17 CLOSURE SKIN & SUBCUTANEOUS NEC 86.59 03/07/12 GROUP PSYCHOTHERAPY 27303 10/25/15 GROUP PSYCHOTHERAPY GZHZZZZ 10/25/15 IMMUNIZATION ADMIN 19047 07/30/13 INSERT INDWELLING CATH 57.94 01/31/10 INSERT TEMP BLADDER CATH 21192 01/31/10 OTHER GROUP THERAPY 94.44 02/23/12 RECREATIONAL THERAPY 93.81 02/23/12 RPR F/E/E/N/L/M 2.6-5.0 [place] [address] 03/07/12 VACCINATION NEC 99.55 07/30/13 VACCINE TOXOID 73619 07/30/13 Assessment/Plan - Problem List Patient Problems: All Active Problems Pneumonia (Active) J18.9 DISLODGED GASTROSTOMY TUBE (Acute) GASTRIC TUBE DISLODGEMENT (Acute) Psychiatric disorder (Acute) F99 The administrative codes within the [employer] content you are accessing may have as of 09/13/2015. Please contact your IT Dept/Help Desk and request the latest Regulatory release be installed. IT Dept/Help Desk- Please refer to our FAQ page ([email or web address] or contact [employer] Customer Support at [email or web address] (Acute) - Assessment Assessment: dehydration improving ... continue gentle hydration constipation ... improved. hyponatremia improving ... Na 121->128 CVA/TIA ... stable Dementia ... stable HTN ... elevated. Diabetes mellitus .. accucheck/ SSI Seizure disorder ... on Keppra COPD ... continue nebulizer PEG placement ... continue GT feeding coagulopathy ... coumadin per pharmacy - Plan Plan: dehydration -- continue IV fluids hyponatremia -- repeat BMP, TSH, renal consult, CVA Dementia Diabetes mellitus Seizure disorder COPD ... continue alb treatment. CHF ... chest xray, BNP
[2017-03-08] MEDS: Levetiracetam 500 mg/5mL 5mL UDC GT SCH ×2 (08:49→21:39)
[2017-03-08] MEDS: Multivitamin Tab GT SCH (08:49)
[2017-03-09 06:37] LABS: % BASOPHILS 0.1 % (0.0-2.0); % EOSINOPHILS 1.3 % (0.0-5.0); % LYMPHOCYTES 13.7 % (20.0-50.0); % MONOCYTES 12.2 % (2.0-10.0); % NEUTROPHILS 72.7 % (40.0-80.0); HEMATOCRIT 34.3 % (41.0-60); HEMOGLOBIN 11.7 gm/dL (12-16); MEAN CELL VOLUME 90.8 fl (80-99); MEAN CORPUSCULAR HGB CONC 34.1 pg (28.0-36.0); MEAN PLATELET VOLUME 8.2 fl; NEUTROPHILE ABSOLUTE 5.1 Th/cmm (1.8-8.0); PLATELET COUNT 237 Th/cmm (150-400); RED BLOOD COUNT 3.78 Mil/cmm (3.80-5.80); RED CELL DISTRIBUTION WIDTH 12.8 % (11.5-20.0)
[2017-03-09 06:44] LABS: ALB/GLOB RATIO 1.1 (1.0-1.8); ALKALINE PHOSPHATASE 99 U/L (34-104); ANION GAP 6.2 (7.0-16.0); BILIRUBIN,TOTAL 0.3 mg/dL (0.3-1.0); BUN - UREA NITROGEN 22 mg/dL (7-25); CALCIUM SERUM 8.6 mg/dL (8.6-10.3); CARBON DIOXIDE 32.9 mEq/L (21.0-31.0); CHLORIDE 93 mEq/L (98-107); CREATININE - SERUM 0.4 mg/dL (0.7-1.3); GLUCOSE 122 mg/dL (70-105); POTASSIUM SERUM 4.1 mEq/L (3.5-5.1); SGOT 19 U/L (13-39); SGPT/ALT 18 U/L (7-52); SODIUM SERUM 128 mEq/L (136-145)
[2017-03-09 06:46] LABS: WHITE BLOOD COUNT 6.9 Th/cmm (4.8-10.8)
[2017-03-09] MEDS: INSULIN ASPART SLIDING SCALE 100 UNITS/ML UNIT SUBQ SCH (07:16)
[2017-03-09] MEDS: Budesonide 0.5 Mg/2 mL Ud HHN SCH (07:45)
--- NOTE | 2017-03-09 08:38 | General Progress Note ---
Subjective - Review of Systems Service Date: 03/09/17 Subjective: Patient was seen and examined this morning. no acute distress, afebrile. more awake and alert. Objective - Results Result Diagrams: 03/09/17 05:35 03/09/17 05:35 Recent Labs: Laboratory Last Values WBC 6.9 Th/cmm (4.8-10.8) D 03/09/17 05:35 RBC 3.78 Mil/cmm (3.80-5.80) L 03/09/17 05:35 Hgb 11.7 gm/dL (12-16) L 03/09/17 05:35 Hct 34.3 % (41.0-60) L 03/09/17 05:35 MCV 90.8 fl (80-99) 03/09/17 05:35 MCH 31.0 pg (27.0-31.0) 03/09/17 05:35 MCHC Differential 34.1 pg (28.0-36.0) 03/09/17 05:35 RDW 12.8 % (11.5-20.0) 03/09/17 05:35 Plt Count 237 Th/cmm (150-400) 03/09/17 05:35 MPV 8.2 fl 03/09/17 05:35 Neutrophils % 72.7 % (40.0-80.0) 03/09/17 05:35 Lymphocytes % 13.7 % (20.0-50.0) L 03/09/17 05:35 Monocytes % 12.2 % (2.0-10.0) H 03/09/17 05:35 Eosinophils % 1.3 % (0.0-5.0) 03/09/17 05:35 Basophils % 0.1 % (0.0-2.0) 03/09/17 05:35 PT 55.6 SECONDS (9.5-11.5) H 03/08/17 05:07 INR 4.92 (0.5-1.4) H* D 03/08/17 05:07 PTT (Actin FS) 42.9 SECONDS (26.0-38.0) H 03/06/17 22:24 Sodium 128 mEq/L (136-145) L 03/09/17 05:35 Potassium 4.1 mEq/L (3.5-5.1) 03/09/17 05:35 Chloride 93 mEq/L (98-107) L 03/09/17 05:35 Carbon Dioxide 32.9 mEq/L (21.0-31.0) H 03/09/17 05:35 Anion Gap 6.2 (7.0-16.0) L 03/09/17 05:35 BUN 22 mg/dL (7-25) 03/09/17 05:35 Creatinine 0.4 mg/dL (0.7-1.3) L 03/09/17 05:35 Est GFR ( Amer) TNP 03/09/17 05:35 Est GFR (Non-Af Amer) TNP 03/09/17 05:35 BUN/Creatinine Ratio 55.0 03/09/17 05:35 Glucose 122 mg/dL (70-105) H 03/09/17 05:35 POC Glucose 114 MG/DL (70 - 105) H 03/09/17 06:31 Whole Bld Lactic Acid 0.95 mmol/L (0.60-1.99) 03/06/17 Unknown Calcium 8.6 mg/dL (8.6-10.3) 03/09/17 05:35 Total Bilirubin 0.3 mg/dL (0.3-1.0) 03/09/17 05:35 AST 19 U/L (13-39) 03/09/17 05:35 ALT 18 U/L (7-52) 03/09/17 05:35 Alkaline Phosphatase 99 U/L (34-104) 03/09/17 05:35 Troponin I 0.01 ng/mL (0.01-0.05) 03/06/17 22:24 B-Natriuretic Peptide 47.1 pg/mL (5.0-100.0) 03/07/17 07:35 Total Protein 6.2 gm/dL (6.0-8.3) 03/09/17 05:35 Albumin 3.3 gm/dL (4.2-5.5) L 03/09/17 05:35 Globulin 2.9 gm/dL 03/09/17 05:35 Albumin/Globulin Ratio 1.1 (1.0-1.8) 03/09/17 05:35 Triglycerides 107 mg/dL (<150) 03/06/17 22:24 Cholesterol 145 mg/dL (<200) 03/06/17 22:24 LDL Cholesterol Direct 84 mg/dL (75-193) 03/06/17 22:24 HDL Cholesterol 51 mg/dL (23-92) 03/06/17 22:24 TSH 1.88 uIU/ml (0.34-5.60) 03/06/17 22:24 Urine Source CLEAN C 03/06/17 22:35 Urine Color YELLOW 03/06/17 22:35 Urine Clarity CLEAR (CLEAR) 03/06/17 22:35 Urine pH 7.5 (4.6 - 8.0) 03/06/17 22:35 Ur Specific [place] 1.015 (1.005-1.030) 03/06/17 22:35 Urine Protein 100 mg/dL (NEGATIVE) H 03/06/17 22:35 Urine Glucose (UA) NEGATIVE mg/dL (NEGATIVE) 03/06/17 22:35 Urine Ketones NEGATIVE mg/dL (NEGATIVE) 03/06/17 22:35 Urine Blood SMALL (NEGATIVE) H 03/06/17 22:35 Urine Nitrate NEGATIVE (NEGATIVE) 03/06/17 22:35 Urine Bilirubin NEGATIVE (NEGATIVE) 03/06/17 22:35 Urine Urobilinogen 0.2 E.U./dL (0.2 - 1.0) 03/06/17 22:35 Ur Leukocyte Esterase NEGATIVE (NEGATIVE) 03/06/17 22:35 Urine RBC 2-5 /hpf (0-5) H 03/06/17 22:35 Urine WBC NONE SEEN /hpf (0-5) 03/06/17 22:35 Ur Epithelial Cells NONE SEEN /lpf (FEW) 03/06/17 22:35 Urine Bacteria NONE SEEN /hpf (NONE SEEN) 03/06/17 22:35 Phenytoin 17.5 ug/ml (10.0-20.0) 03/06/17 22:24 Valproic Acid 39.1 ug/mL (50.0-100.0) L 03/06/17 22:24 RPR NONREACTIVE (NONREACTIVE) 03/06/17 22:24 - Physical Exam Vitals and I&O: Vital Signs Temp 98.4 F 03/09/17 07:43 Pulse 68 03/09/17 07:45 Resp 20 03/09/17 07:45 BP 115/59 03/09/17 07:43 Pulse Ox 99 03/09/17 07:45 Intake & Output 03/08/17 03/09/17 03/09/17 18:59 06:59 18:59 Intake Total 0 450 Balance 0 450 Weight (lbs) 87.77 kg 91.898 kg Intake: Oral 0 0 Tube Feeding 450 Other: # Voids 3 # Bowel Movements 0 0 Stool Characteristics Soft Formed Brown Active Medications: Current Medications Acetaminophen (Tylenol 650mg/20.3ml Suspension) 650 mg GT Q4HR PRN PRN Reason: FEVER >100.4 OR FOR PAIN Stop: 05/06/17 00:39 Ascorbic Acid (Vitamin C) 500 mg GT DAILY [facility] Stop: 05/06/17 08:59 Last Admin: 03/08/17 08:49 Dose: 500 mg Bisacodyl (Dulcolax 10 Mg Supp) 10 mg RC DAILY PRN PRN Reason: Constipation Stop: 05/06/17 00:39 Budesonide (Pulmicort) 0.5 mg HHN BIDRT [facility] Stop: 05/06/17 06:59 Last Admin: 03/09/17 07:45 Dose: 0.5 mg Insulin Aspart (Novolog Insulin Sliding Scale) 0 units SUBQ ACHS [place] PRN Reason: Protocol Stop: 05/06/17 07:29 Last Admin: 03/09/17 07:16 Dose: Not Given Levetiracetam (Keppra) 750 mg GT Q12HR [facility] Stop: 05/06/17 08:59 Last Admin: 03/08/17 21:39 Dose: 750 mg Lisinopril (Zestril) 5 mg PO DAILY [facility] Stop: 05/07/17 08:59 Last Admin: 03/08/17 11:21 Dose: 5 mg Magnesium Hydroxide (Milk Of Magnesia) 30 ml GT DAILY PRN PRN Reason: IF NO BM IN TWO DAYS Stop: 05/06/17 00:39 Multivitamins/Vitamin C (Theragran) 1 tab GT DAILY [facility] Stop: 05/06/17 08:59 Last Admin: 03/08/17 08:49 Dose: 1 tab Mupirocin (Bactroban Oint) 1 appl NS BID [facility] Stop: 03/13/17 17:01 Phenytoin (Dilantin) 300 mg GT TID [facility] Stop: 05/06/17 08:59 Last Admin: 03/08/17 21:39 Dose: 300 mg Sodium Phosphate (Fleet Enema) 135 ml RC DAILY PRN PRN Reason: IF MOM OR DULCOLAX INEFFECTIVE Stop: 05/06/17 00:39 Valproate Sodium (Depakene) 500 mg GT Q12HR [place] PRN Reason: Protocol Stop: 05/06/17 00:44 Last Admin: 03/08/17 21:39 Dose: 500 mg Warfarin Sodium (Coumadin Per Pharmacy) 1 ea MC PRN PRN; Protocol PRN Reason: RX MONITORING Stop: 05/07/17 08:13 Zinc Sulfate (Zinc Sulfate) 220 mg GT DAILY [place] Stop: 05/06/17 08:59 Last Admin: 03/08/17 08:49 Dose: 220 mg General: Alert, Oriented x3, No acute distress HEENT: Atraumatic, PERRLA, EOMI Neck: Supple Cardiovascular: Regular rate, Normal S1, Normal S2 Lungs: Clear to auscultation Abdomen: Bowel sounds, Soft Extremities: Edema (+1 pedal edema), no Clubbing, no Cyanosis - Procedures Procedures: Procedures Procedure Code Date CHANGE FEEDING DEVICE IN UP INTEST TRACT, ADHESIVE BANDAGE MACHINE OPERATOR APPROACH [id number] 01/18/17 CHANGE GASTROSTOMY TUBE 92234 01/18/17 CLOSURE SKIN & SUBCUTANEOUS NEC 86.59 03/07/12 GROUP PSYCHOTHERAPY 08826 10/25/15 GROUP PSYCHOTHERAPY GZHZZZZ 10/25/15 IMMUNIZATION ADMIN 65249 07/30/13 INSERT INDWELLING CATH 57.94 01/31/10 INSERT TEMP BLADDER CATH 79692 01/31/10 OTHER GROUP THERAPY 94.44 02/23/12 RECREATIONAL THERAPY 93.81 02/23/12 RPR F/E/E/N/L/M 2.6-5[place]0 [place] [address] 03/07/12 VACCINATION NEC 99.55 07/30/13 VACCINE TOXOID 76357 07/30/13 Assessment/Plan - Problem List Patient Problems: All Active Problems Pneumonia (Active) J18.9 DISLODGED GASTROSTOMY TUBE (Acute) GASTRIC TUBE DISLODGEMENT (Acute) Psychiatric disorder (Acute) F99 The administrative codes within the [employer] content you are accessing may have as of 09/13/2015. Please contact your IT Dept/Help Desk and request the latest Regulatory release be installed. IT Dept/Help Desk- Please refer to our FAQ page ([email or web address]) or contact [employer] Customer Support at [email or web address] (Acute) - Assessment Assessment: dehydration improving ... continue gentle hydration constipation ... improved. hyponatremia improving ... Na 121->128 CVA/TIA ... stable Dementia ... stable HTN ... elevated. Diabetes mellitus .. accucheck/ SSI Seizure disorder ... on Keppra COPD ... continue nebulizer PEG placement ... continue GT feeding coagulopathy ... will hold coumadin for the next 2-3 days, repeat PT/INR as outpatient. - Plan Plan: dehydration -- continue IV fluids hyponatremia -- repeat BMP, TSH, renal consult, CVA Dementia Diabetes mellitus Seizure disorder COPD ... continue alb treatment. CHF ... chest xray, BNP Nutritional Asmnt/Malnutr-PDOC - Dietary Evaluation Malnutrition Findings (Please click <Entered> for more info): Nutritional Asmnt/Malnutrition Start: 03/08/17 15: 47 Text: Status: Complete Freq: Document 03/08/17 15:47 GSUN (Rec: 03/08/17 16:24 GSUN [email or web address]) Nutritional Asmnt/Malnutrition Patient General Information Nutritional Screening Consult Diagnosis Dehydration, COPD, CHF Pertinent Medical Hx/Surgical Hx CAD, CHF, HTN, CVA, dementia, seizure, TIA, PEG, DM Subjective Information 86 year old male from SNF. Consult Augustine Gaona. 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 Spoke to RN Susana. Coffee ground emesis at [facility] prior to adm, none since adm. 1 Episodes of residual 150ml yesterday noon 03/07, tube feeding held for an hour then resumed. No residual, tolerated well for past >12hrs . Observed RN restarting tube feeding as ordered at noon. No severe muscle fat wasting noted. Current tube feeding providing to meet 69% lower end kcal and 86% lower end prot needs. Dicussed with MD Dr. Isabell Gunn to increase tube feeding rate to meet nutritional needs, current plan of care is to remain at this rate while receiving IV hydration and correcting electrolytes. Current Diet Order/ Nutrition Support Diabetisource 50ml/hr x 20hrs, providing 1000ml, 1200kcal, 60g Pertinent Medications Vitamin C, dulcolax, Novolog, MOM, Theragran, Fleet Enema, IV, Coumadin, Zinc Sulfate Pertinent Labs 03/08: glucose 118H Nutritional Hx/Data Height 1.73 m Height (Calculated Centimeters) 172.7 Current Weight (lbs) 92.533 kg Weight (Calculated Kilograms) 92.5 Weight (Calculated Grams) 83483.8 [place] Body Weight 154 Weight Status Obese GI Symptoms Usual diet at home [facility]: Nutren 2.0 50ml/hr x 20hrs, providing 2000kcal Skin Integrity/Comment: Augustine 12. Skin intact. Estimated Nutritional Goals Calories/Kcals/Kg IBW 154lb/70kg (overweight with consideration of bedbound ) Kcals Calculated 1750-2100kcal (25-30kcal/kg) Protein Calculated 70-84g (1-1.2g/kg) Fluid: ml Per MD Nutritional Problem 1. Problem Problem Inadequate intake from enteral nutrition related to Etiology estimated nutritinoal needs aeb Signs/Symptoms: meeting 69% lower end kcal and 86% lower end prot needs Intervention/Recommendation Comments Continue with current tube feeding. Inadequate nutrition intake, current rate provides to meet 69% lower end kcal and 86% lower end prot needs. Minimum 1750kcal recommended and pt receives 2000kcal at SNF. Discussed with MD Dr. Isabell Gunn to increase tube feeding rate to meet nutritional needs, current plan of care is to remain at this rate while receiving IV hydration and correcting electrolytes. RD follow up at high risk. Expected Outcomes/Goals Expected Outcomes/Goals 1. Tube feeding rate to increase and meet minimum 75% of estimated nutritinoal needs during follow up.
[2017-03-09] MEDS: Levetiracetam 500 mg/5mL 5mL UDC GT SCH (09:26)
[2017-03-09] MEDS: Multivitamin Tab GT SCH (09:28)
[2017-03-09 11:03] LABS: PROTHROMBIN TIME (TEST) 47.8 SECONDS (9.5-11.5)
[2017-03-09 11:52] LABS: INR 4.26 (0.5-1.4)
--- NOTE | 2017-03-16 19:56 | Discharge Summary ---
DATE OF DISCHARGE: 03/09/2017 PRELIMINARY DIAGNOSES: 1. Dehydration. 2. Hyponatremia. 3. Cerebrovascular accident. 4. Dementia. 5. Diabetes mellitus. 6. Seizure disorder. 7. Chronic obstructive pulmonary disease. 8. Congestive heart failure. DISCHARGE DIAGNOSES: 1. Dehydration. 2. Hyponatremia. 3. Cerebrovascular accident. 4. Dementia. 5. Diabetes mellitus. 6. Seizure disorder. 7. Chronic obstructive pulmonary disease. 8. Congestive heart failure. HISTORY OF PRESENT ILLNESS: This is an 86-year-old male who presents to [facility] ER for evaluation of coffee-ground emesis noted by the nursing staff at long-term facility. The patient has a history of CVA, dementia, diabetes mellitus, seizure disorder, COPD, and CHF. While in the ER, the patient was found to have a white count of 13.8, hemoglobin was normal at 13.5, hematocrit was 40, and his platelets were also normal at 278,000. PT/INR was 32.2 and 2.9. Sodium was noted to be low at 121 with BUN of 18 and creatinine of 0.4. The patient was subsequently admitted for further evaluation and treatment. HOSPITAL COURSE: The patient improved during his hospital stay. The patient was given IV fluids to correct the sodium. His initial sodium was noted to be 121. Repeat lab work showed sodium of 123 on 03/07/2017 and then 128 on 03/09/2017. His hemoglobin remained stable during his hospital stay. The patient did not have any further problems and was subsequently transferred in stable condition to long-term facility. The patient was to continue his current home medications. [facility]# [id number]
== END 2017-03-09 14:52 | disposition home or self-care (01) | DRG 641 ==
LOC: ER 22:06 → MSI 23:25
PROVIDERS: ADMIT Family Medicine; ATTEND Family Medicine
DX: E87.1 Hypo-osmolality and hyponatremia (principal); E86.0 Dehydration; F03.90 Unspecified dementia, unspecified severity, without behavioral disturbance, psychotic disturbance, mood disturbance, and anxiety; I50.9 Heart failure, unspecified; I11.0 Hypertensive heart disease with heart failure; J44.9 Chronic obstructive pulmonary disease, unspecified; K59.00 Constipation, unspecified; E11.9 Type 2 diabetes mellitus without complications; G40.909 Epilepsy, unspecified, not intractable, without status epilepticus; I25.10 Atherosclerotic heart disease of native coronary artery without angina pectoris; Z79.4 Long term (current) use of insulin; Z79.01 Long term (current) use of anticoagulants; Z86.73 Personal history of transient ischemic attack (TIA), and cerebral infarction without residual deficits; Z93.1 Gastrostomy status; Z88.0 Allergy status to penicillin
CPT/HCPCS: 36415-UA; 71010-TC; 80053-TC; 80061-TC; 80164-TC; 80185-TC; 81001-TC; 82150-90; 82948-90; 83605; 83880-TC; 84443-TC; 84484-TC; 85007-TC; 85025-TC; 85027-TC; 85610-TC; 85730-TC; 86592-TC; 93005; 94760; J1815; J1940; J3480; J7030; X7704; Z7610

== ENCOUNTER 2017-03-24 02:41 | Inpatient (IN) | payer MEDICARE, MEDICAID ==
[2017-03-24] MEDS ORDERED: Albuterol/Ipratropium Neb 3 ML AERS HHN ONE ×2 (02:59→03:00)
[2017-03-24 03:40] LABS: HEMOGLOBIN 13.4 gm/dL (12-16); MEAN CELL VOLUME 91.6 fl (80-99); MEAN CORPUSCULAR HGB CONC 33.8 pg (28.0-36.0); MEAN PLATELET VOLUME 7.3 fl; PLATELET COUNT 278 Th/cmm (150-400); RED BLOOD COUNT 4.32 Mil/cmm (3.80-5.80); RED CELL DISTRIBUTION WIDTH 12.7 % (11.5-20.0)
[2017-03-24 03:47] LABS: HEMATOCRIT 39.6 % (41.0-60); WHITE BLOOD COUNT 13.6 Th/cmm (4.8-10.8)
[2017-03-24 03:50] LABS: INR 1.87 (0.5-1.4); PROTHROMBIN TIME (TEST) 20.1 SECONDS (9.5-11.5)
[2017-03-24 03:56] LABS: ALKALINE PHOSPHATASE 86 U/L (34-104); ANION GAP 11.5 (7.0-16.0); BILIRUBIN,TOTAL 0.4 mg/dL (0.3-1.0); BUN - UREA NITROGEN 22 mg/dL (7-25); CALCIUM SERUM 8.6 mg/dL (8.6-10.3); CARBON DIOXIDE 28.9 mEq/L (21.0-31.0); CHLORIDE 85 mEq/L (98-107); CREATININE - SERUM 0.5 mg/dL (0.7-1.3); GLUCOSE 156 mg/dL (70-105); POTASSIUM SERUM 4.4 mEq/L (3.5-5.1); SGOT 25 U/L (13-39); SGPT/ALT 21 U/L (7-52); SODIUM SERUM 121 mEq/L (136-145)
[2017-03-24] MEDS ORDERED: Sodium Chloride 0.9% 1,000 ML IV ONE (04:08)
[2017-03-24] MEDS ORDERED: Levofloxacin 500mg/100mL 500 MG/100 ML BAG IV ONE ×2 (04:09→04:16)
[2017-03-24 04:43] LABS: BAND NEUTROPHILE 3 % (0-10); NEUTROPHILS 89 % (40-80); PLATELET ESTIMATE ADEQUATE (NORMAL); TOTAL CELLS COUNTED 100
[2017-03-24] MEDS ORDERED: Levofloxacin 500mg/100mL 500 MG/100 ML BAG IV SCH ×2 (05:00→08:00)
[2017-03-24] MEDS ORDERED: Azithromycin 500 MG in Sodium Chloride 0.9% 250 ML IV ONE (06:18)
--- NOTE | 2017-03-24 06:20 | ED Physician Chart ---
ED Chief Complaint/HPI - Patient Information Date Seen:: 03/24/17 Time Seen:: 02:00 Chief Complaint:: Increased congestion for 3 hours History of Present Illness:: 86 yo male was brought to ER for evaluation of increased congestion noted by the nursing staff at [facility]. He has a previous history of COPD, hypertension, CHF, CVA, dementia, diabetes mellitus type II, and seizures. While in the ER, he was found to have altered mental status, significant lung congestion and fluid accumulation in the oral pharyngeal area, 2+ edema at bilateral lower extremities. His WBC 13.6, Na 121, Cl 85, BUN 22 creatinine 0.5 Allergies:: Allergies Allergy/AdvReac Type Severity Reaction Status Date / Time Penicillins Allergy Verified 03/06/17 22:10 Vitals:: Vital Signs - 8 hr 03/24/17 03/24/17 03/24/17 02:41 03:05 03:18 Temp 98.9 F HR 110 113 110 RR 22 24 22 BP 120/68 O2 Sat % 92 88 93 03/24/17 03/24/17 03/24/17 04:24 04:54 05:24 Temp HR 109 109 109 RR 29 30 29 BP 159/82 152/74 152/82 O2 Sat % 97 97 03/24/17 05:54 Temp HR 105 RR 29 BP 144/81 O2 Sat % 96 ED Review of Systems - Review of Systems General/Constitutional: Weakness, Edema Pulmonary: SOB, Sputum GI: No vomiting Psychiatric: Prior psych history Neurological: Seizure, Confusion ED Past Medical History - Past Medical History Obtainable: No (from medical records) Past Medical History: HTN, DM, CHF, Asthma/COPD, CVA/TIA, Seizures, Dementia, Other (osteoarthritis, squamous cell carcinoma of scalp) Social History: Non Smoker, No Alcohol, No Drug Use, Care Facility Surgical History: PEG/GTube Medication: Reviewed Family Medical History - Family Member Father History Unknown: Yes Ethnicity: Non- Living Status: Unknown Mother History Unknown: Yes ED Physical Exam - Physical Examination Other Gen/Cons comments:: Non-verbal Head: Atraumatic Eyes: PERRL Neck: No bruit Other Respiratory comments:: labored breathing, ronchi, crackles Cardio Vascular: RRR, NL S1 S2 GI: No organomegaly, No mass/bruits Other comments:: Urinary incontinent Other Extremities comments:: 2+ edema bilateral lower extremities Other Neuro/Psych comments:: Non-verbal, not follow command ED Labs/Radiology/EKG Results - Lab Results Results: Laboratory Tests 03/24/17 03/24/17 03/24/17 03:30 03:30 03:30 WBC 13.6 H D RBC 4.32 Hgb 13.4 Hct 39.6 L D MCV 91.6 MCH 31.0 MCHC Differential 33.8 RDW 12.7 Plt Count 278 MPV 7.3 Band Neutrophils % 3 Neutrophils (Manual) 89 H Lymphocytes 7 L Monocytes 1 L Platelet Estimate ADEQUATE PT INR PTT (Actin FS) Sodium 121 L Potassium 4.4 Chloride 85 L Carbon Dioxide 28.9 Anion Gap 11.5 BUN 22 Creatinine 0.5 L Est GFR ( Amer) TNP Est GFR (Non-Af Amer) TNP BUN/Creatinine Ratio 44.0 Glucose 156 H Hemoglobin A1c % 5.4 Whole Bld Lactic Acid Calcium 8.6 Total Bilirubin 0.4 AST 25 ALT 21 Alkaline Phosphatase 86 Total Protein 6.9 Albumin 3.4 L Globulin 3.5 Albumin/Globulin Ratio 1.0 03/24/17 03/24/17 03:30 03:30 WBC RBC Hgb Hct MCV MCH MCHC Differential RDW Plt Count MPV Band Neutrophils % Neutrophils (Manual) Lymphocytes Monocytes Platelet Estimate PT 20.1 H INR 1.87 H PTT (Actin FS) 34.5 Sodium Potassium Chloride Carbon Dioxide Anion Gap BUN Creatinine Est GFR ( Amer) Est GFR (Non-Af Amer) BUN/Creatinine Ratio Glucose Hemoglobin A1c % Whole Bld Lactic Acid 1.35 Calcium Total Bilirubin AST ALT Alkaline Phosphatase Total Protein Albumin Globulin Albumin/Globulin Ratio ED Assessment - Assessment General Assessment: 86 yo male with multiple comorbidities has leukocytosis, hyponatremia and CHF exacerbation. Critical Care Time: 45 Excludes all billable procedures: Yes This condition life threatening/high prob of deterioration: Yes Assessment/Comments:: CBC, CMP, ABG CXR Levofloxacin Azithromycin NS Lasix DuoNeb BIPAP ED Septic Shock - . Is Septic Shock (SBP<90, OR Lactate>4 mmol\L) present?: No - <6hrs of presentation: Vital Signs: Vital Signs - 8 hr 03/24/17 03/24/17 03/24/17 02:41 03:05 03:18 Temp 98.9 F HR 110 113 110 RR 22 24 22 BP 120/68 O2 Sat % 92 88 93 03/24/17 03/24/17 03/24/17 04:24 04:54 05:24 Temp HR 109 109 109 RR 29 30 29 BP 159/82 152/74 152/82 O2 Sat % 97 97 03/24/17 05:54 Temp HR 105 RR 29 BP 144/81 O2 Sat % 96 ED Reassessment (Disposition) - Reassessment Reassessment Condition:: Improved - Patient Disposition Discharge/Transfer:: Acute Care w/in this hosp ED Discharge Plan - Patient Disposition Admit/Discharge/Transfer: Acute Care w/in this hosp Accepting Physician: Vazquez Gunn [Provisional Staff] -
[2017-03-24 06:38] LABS: ABG SOURCE Arterial; ALLEN TEST YES; BE(B) 9.5 mEq/L (-3.0-3.0); HCO3 32.4 mEq/L (20.0-26.0); pH 7.44 (7.35-7.45)
[2017-03-24 06:39] LABS: FIO2 100
[2017-03-24] MEDS ORDERED: Albuterol/Ipratropium Neb 3 ML AERS HHN PRN (06:57)
[2017-03-24] MEDS ORDERED: D5-0.45NS 1,000 ML IV SCH (07:00)
--- NOTE | 2017-03-24 08:06 | History and Physical ---
History of Present Illness - HPI Chief Complaint: SOB HPI: 86 year old male who presents to [facility] ER for increased chest congestion noted by the nursing staff at [facility]. Patient has a previous history of COPD, HTN, CHF,CVA,dementia,Diabetes mellitus type 2, and seizure disorder. While in the ER patient had routine labwork which revealed Na 121, cl 85, BUN 22 and creatinine 0.5 with a WBCs 13.6. 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[employer]MER: Report: CVA, Dementia, Seizure Endocrine: Report: Diabetes Family Medical History - Family Member Father History Unknown: Yes Ethnicity: Non- Living Status: Unknown Mother History Unknown: Yes Social History Smoke: No Alcohol: None Drugs: None Lives: Group Home - Medications Home Medications: Home Medication Medication Instructions Recorded Type Bisacodyl [Dulcolax 10 Mg Supp] 10 mg RC DAILY PRN #0 sup 07/14/16 Rx Fleet Enema 135 ml RC DAILY PRN #0 btl 07/14/16 Rx Acetaminophen 650 mg GT Q4HR PRN 08/23/16 History Levetiracetam [Keppra] 750 mg GT Q12HR 08/23/16 History Magnesium Hydroxide [Milk of 30 ml GT DAILY PRN 08/23/16 History Magnesia] Valproic Acid [Depakene] 500 mg GT Q12H 08/23/16 History cloNIDine HCl [Catapres] 0.1 mg GT Q8HR PRN 08/23/16 History Phenytoin [Dilantin*] 300 mg GT TID 11/21/16 History Ascorbic Acid [Vitamin C] 500 mg GT DAILY 01/18/17 History Multivitamin [Multivitamins] 1 tab GT DAILY 01/18/17 History Zinc Sulfate 220 mg GT DAILY 01/18/17 History Budesonide [Pulmicort] 0.5 mg IH BID 03/06/17 History Insulin Aspart Sliding Scale See Protocol SUBQ ACHS 03/06/17 History [NovoLOG INSULIN SLIDING SCALE] Warfarin Sodium [Coumadin] 7.5 mg GT DAILY 03/06/17 History Omeprazole 20 mg PO DAILY 03/24/17 History Ondansetron HCl [Zofran] 4 mg IV Q6HR PRN 03/24/17 History - Allergies Allergies/Adverse Reactions: Allergies Allergy/AdvReac Type Severity Reaction Status Date / Time Penicillins Allergy Verified 03/06/17 22:10 Review of Systems - Review of Systems Review of Systems: unable to obtain d/t patient's condition Constitutional: Report: No Significant Eyes: Report: No Significant ENT: Report: No Significant Respiratory: Report: SOB with Excertion Cardiovascular: Report: No Significant Gastrointestinal: Report: No Significant Genitourinary: Report: No Significant Musculoskeletal: Report: No Significant Skin: Report: No Significant Neurological: Report: No Significant Physical Exam - Physical Exam HEENT: Report: Ears Nose Throat within normal limits, Pharnyx within normal limits Neck: Report: Within normal limits Cardiovascular Systems: Report: +s1/s2 noted, Regular, Rate and Rhythm Respiratory: Report: Crackles (decreased breath sounds) Abdomen: Report: Non-tender to palpation - Lab Results All Lab Results last 24 hours: Laboratory Last Values WBC 13.6 Th/cmm (4.8-10.8) H D 03/24/17 03:30 RBC 4.32 Mil/cmm (3.80-5.80) 03/24/17 03:30 Hgb 13.4 gm/dL (12-16) 03/24/17 03:30 Hct 39.6 % (41.0-60) L D 03/24/17 03:30 MCV 91.6 fl (80-99) 03/24/17 03:30 MCH 31.0 pg (27.0-31.0) 03/24/17 03:30 MCHC Differential 33.8 pg (28.0-36.0) 03/24/17 03:30 RDW 12.7 % (11.5-20.0) 03/24/17 03:30 Plt Count 278 Th/cmm (150-400) 03/24/17 03:30 MPV 7.3 fl 03/24/17 03:30 Band Neutrophils % 3 % (0-10) 03/24/17 03:30 Neutrophils (Manual) 89 % (40-80) H 03/24/17 03:30 Lymphocytes 7 % (20-50) L 03/24/17 03:30 Monocytes 1 % (2-10) L 03/24/17 03:30 Platelet Estimate ADEQUATE (NORMAL) 03/24/17 03:30 PT 20.1 SECONDS (9.5-11.5) H 03/24/17 03:30 INR 1.87 (0.5-1.4) H 03/24/17 03:30 PTT (Actin FS) 34.5 SECONDS (26.0-38.0) 03/24/17 03:30 Specimen Source Arterial 03/24/17 06:30 Sample Site Right Radial 03/24/17 06:30 pH 7.44 (7.35-7.45) 03/24/17 06:30 pCO2 52.0 mmHg (35.0-45.0) H 03/24/17 06:30 pO2 165.0 mmHg (80.0-100.0) H 03/24/17 06:30 HCO3 32.4 mEq/L (20.0-26.0) H 03/24/17 06:30 Base Excess 9.5 mEq/L (-3.0-3.0) H 03/24/17 06:30 O2 Saturation 100.0 % (92.0-100.0) 03/24/17 06:30 Shamar Test YES 03/24/17 06:30 Vent Rate NA 03/24/17 06:30 Inspired O2 100 03/24/17 06:30 Tidal Volume NA 03/24/17 06:30 PEEP NA 03/24/17 06:30 Pressure (ins/psv/peep) NA 03/24/17 06:30 Critical Value E.ARREOLA 03/24/17 06:30 Sodium 121 mEq/L (136-145) L 03/24/17 03:30 Potassium 4.4 mEq/L (3.5-5.1) 03/24/17 03:30 Chloride 85 mEq/L (98-107) L 03/24/17 03:30 Carbon Dioxide 28.9 mEq/L (21.0-31.0) 03/24/17 03:30 Anion Gap 11.5 (7.0-16.0) 03/24/17 03:30 BUN 22 mg/dL (7-25) 03/24/17 03:30 Creatinine 0.5 mg/dL (0.7-1.3) L 03/24/17 03:30 Est GFR ( Amer) TNP 03/24/17 03:30 Est GFR (Non-Af Amer) TNP 03/24/17 03:30 BUN/Creatinine Ratio 44.0 03/24/17 03:30 Glucose 156 mg/dL (70-105) H 03/24/17 03:30 Hemoglobin A1c % 5.4 % (4.0-6.0) 03/24/17 03:30 Whole Bld Lactic Acid 1.35 mmol/L (0.60-1.99) 03/24/17 03:30 Calcium 8.6 mg/dL (8.6-10.3) 03/24/17 03:30 Total Bilirubin 0.4 mg/dL (0.3-1.0) 03/24/17 03:30 AST 25 U/L (13-39) 03/24/17 03:30 ALT 21 U/L (7-52) 03/24/17 03:30 Alkaline Phosphatase 86 U/L (34-104) 03/24/17 03:30 Total Protein 6.9 gm/dL (6.0-8.3) 03/24/17 03:30 Albumin 3.4 gm/dL (4.2-5.5) L 03/24/17 03:30 Globulin 3.5 gm/dL 03/24/17 03:30 Albumin/Globulin Ratio 1.0 (1.0-1.8) 03/24/17 03:30 - Assessment Assessment: CHF COPD pneumonia r/o aspiration leukocytosis hyponatremia diabetes mellitus HTN coagulopathy - Plan Plan: cardiology consult pulmonology consult
[2017-03-24] MEDS ORDERED: Magnesium Hydroxide (MOM) 30 mL UDC GT PRN (08:14)
[2017-03-24] MEDS ORDERED: Fleet Enema 135 mL RC PRN (08:14)
--- NOTE | 2017-03-24 08:23 | Diagnostic Imaging Report ---
CHEST X-RAY: AP view INDICATION: Cough, shortness of breath COMPARISON: 03/07/2017 FINDINGS: Chronic lung changes are seen with no focal infiltrate or pleural effusions. Mild cardiomegaly is noted with atherosclerosis. Degenerative changes of the spine are noted. IMPRESSION: Chronic interstitial lung changes with no focal consolidation identified. Cardiomegaly and atherosclerotic vascular disease.
[2017-03-24] MEDS ORDERED: WARFARIN SODIUM 7.5 MG GT SCH (09:00)
[2017-03-24] MEDS: Sodium Chloride 0.9% 1,000 ML IV SCH (11:25)
[2017-03-24] MEDS ORDERED: VTE Chemical Prophylaxis Screen/Admission MC PRN (12:48)
[2017-03-24] MEDS: INSULIN ASPART SLIDING SCALE 100 UNITS/ML UNIT SUBQ SCH ×3 (13:21→21:16)
[2017-03-24] MEDS ORDERED: Probiotic Screen MC PRN (13:45)
[2017-03-24] MEDS: Levetiracetam 500 mg/5mL 5mL UDC GT SCH ×2 (17:30→21:14)
[2017-03-24] MEDS: Pantoprazole 40 mg/Packet GT SCH (17:33)
[2017-03-24] MEDS: Multivitamin Tab GT SCH (17:33)
[2017-03-24 18:35] VITALS: BP 126/61
--- NOTE | 2017-03-24 18:54 | Consultation ---
DATE OF CONSULTATION: 03/24/[address] Gunn. HISTORY AND PHYSICAL: This is an 86-year-old male patient. The patient was brought to the Emergency Room at [facility] with shortness of breath from SNF and congestion. PAST MEDICAL HISTORY: The patient has a history of congestive heart failure, diabetes, CVA with late effect, seizure disorder, COPD. FAMILY HISTORY: Unremarkable. SOCIAL HISTORY: No history of smoking, alcohol abuse. ALLERGIES: No known allergies. PHYSICAL EXAMINATION: VITAL SIGNS: Blood pressure 130/80, pulse 100, respirations 28. HEAD: Normocephalic. No lumps or bumps. EYES: Pupils equal, reactive to light. Fundi show AV nicking, sclerae white, conjunctivae pink. NECK: Carotid 2+. Normal upstroke. JVD flat. Thyroid not palpable. Lymph nodes not palpable. CHEST: Shows increased AP diameter. No kyphosis, scoliosis. LUNGS: Bilateral wheezing, rhonchi, prolonged expiration. HEART: PMI fifth intercostal space with lateral to midclavicular line. S1, S2, S3, S4, systolic murmur grade 2/6 lower left sternal border without radiation. ABDOMEN: Soft. Liver, spleen not palpable. No organomegaly. Bowel sounds are active. NEUROLOGIC: CVA with late effect. EXTREMITIES: Peripheral pulses 1+, pedal edema 1+. CLINICAL IMPRESSION: Acute respiratory failure, on BiPAP; chronic obstructive pulmonary disease with acute exacerbation; hyponatremia; mild congestive heart failure; diastolic dysfunction; acute diabetes mellitus type 2, insulin dependent diabetes, CVA with late effect, seizure disorder, squamous-cell carcinoma of the scalp, hypertension, dementia. PLAN: Admit the patient continue the present care. His pulmonary evaluation for possible pneumonia and get an echocardiogram. JOB# [id number]
[2017-03-24] MEDS: Budesonide 0.5 Mg/2 mL Ud HHN SCH (18:55)
[2017-03-25 04:24] LABS: RED CELL DISTRIBUTION WIDTH 12.7 % (11.5-20.0)
[2017-03-25 04:31] LABS: MEAN CELL VOLUME 91.7 fl (80-99); MEAN CORPUSCULAR HEMOGLOBIN 31.1 pg (27.0-31.0); MEAN CORPUSCULAR HGB CONC 33.9 pg (28.0-36.0); MEAN PLATELET VOLUME 8.1 fl; RED BLOOD COUNT 3.84 Mil/cmm (3.80-5.80)
[2017-03-25 04:39] LABS: ALB/GLOB RATIO 0.9 (1.0-1.8); ALKALINE PHOSPHATASE 89 U/L (34-104); BILIRUBIN,TOTAL 0.3 mg/dL (0.3-1.0); BUN - UREA NITROGEN 26 mg/dL (7-25); CALCIUM SERUM 8.2 mg/dL (8.6-10.3); CARBON DIOXIDE 31.4 mEq/L (21.0-31.0); CHLORIDE 93 mEq/L (98-107); CREATININE - SERUM 0.4 mg/dL (0.7-1.3); GLUCOSE 176 mg/dL (70-105); POTASSIUM SERUM 4.4 mEq/L (3.5-5.1); SGOT 31 U/L (13-39); SGPT/ALT 21 U/L (7-52); SODIUM SERUM 128 mEq/L (136-145)
[2017-03-25 04:44] LABS: WHITE BLOOD COUNT 8.1 Th/cmm (4.8-10.8)
[2017-03-25 04:45] LABS: HEMATOCRIT 35.2 % (41.0-60); PLATELET COUNT 216 Th/cmm (150-400)
[2017-03-25] MEDS ORDERED: Levofloxacin 500mg/100mL 500 MG/100 ML BAG IV SCH (05:00)
[2017-03-25] MEDS: Sodium Chloride 0.9% 1,000 ML IV SCH (06:14)
--- NOTE | 2017-03-25 07:56 | General Progress Note ---
Subjective - Review of Systems Service Date: 03/25/17 Subjective: Patient is nonverbal. off BiPaP. Patient condition unchanged. fatigue and weakness. unresponsive to verbal commands. opens eyes Objective - Results Result Diagrams: 03/25/17 04:08 03/25/17 04:08 Recent Labs: Laboratory Last Values WBC 8.1 Th/cmm (4.8-10.8) D 03/25/17 04:08 RBC 3.84 Mil/cmm (3.80-5.80) 03/25/17 04:08 Hgb 12.0 gm/dL (12-16) 03/25/17 04:08 Hct 35.2 % (41.0-60) L D 03/25/17 04:08 MCV 91.7 fl (80-99) 03/25/17 04:08 MCH 31.1 pg (27.0-31.0) H 03/25/17 04:08 MCHC Differential 33.9 pg (28.0-36.0) 03/25/17 04:08 RDW 12.7 % (11.5-20.0) 03/25/17 04:08 Plt Count 216 Th/cmm (150-400) D 03/25/17 04:08 MPV 8.1 fl 03/25/17 04:08 Band Neutrophils % 3 % (0-10) 03/24/17 03:30 Neutrophils (Manual) 89 % (40-80) H 03/24/17 03:30 Lymphocytes 7 % (20-50) L 03/24/17 03:30 Monocytes 1 % (2-10) L 03/24/17 03:30 Platelet Estimate ADEQUATE (NORMAL) 03/24/17 03:30 PT 20.1 SECONDS (9.5-11.5) H 03/24/17 03:30 INR 1.87 (0.5-1.4) H 03/24/17 03:30 PTT (Actin FS) 34.5 SECONDS (26.0-38.0) 03/24/17 03:30 Specimen Source Arterial 03/24/17 06:30 Sample Site Right Radial 03/24/17 06:30 pH 7.44 (7.35-7.45) 03/24/17 06:30 pCO2 52.0 mmHg (35.0-45.0) H 03/24/17 06:30 pO2 165.0 mmHg (80.0-100.0) H 03/24/17 06:30 HCO3 32.4 mEq/L (20.0-26.0) H 03/24/17 06:30 Base Excess 9.5 mEq/L (-3.0-3.0) H 03/24/17 06:30 O2 Saturation 100.0 % (92.0-100.0) 03/24/17 06:30 Shamar Test YES 03/24/17 06:30 Vent Rate NA 03/24/17 06:30 Inspired O2 100 03/24/17 06:30 Tidal Volume NA 03/24/17 06:30 PEEP NA 03/24/17 06:30 Pressure (ins/psv/peep) NA 03/24/17 06:30 Critical Value E.ARREOLA 03/24/17 06:30 Sodium 128 mEq/L (136-145) L 03/25/17 04:08 Potassium 4.4 mEq/L (3.5-5.1) 03/25/17 04:08 Chloride 93 mEq/L (98-107) L 03/25/17 04:08 Carbon Dioxide 31.4 mEq/L (21.0-31.0) H 03/25/17 04:08 Anion Gap 8.0 (7.0-16.0) 03/25/17 04:08 BUN 26 mg/dL (7-25) H 03/25/17 04:08 Creatinine 0.4 mg/dL (0.7-1.3) L 03/25/17 04:08 Est GFR ( Amer) TNP 03/25/17 04:08 Est GFR (Non-Af Amer) TNP 03/25/17 04:08 BUN/Creatinine Ratio 65.0 03/25/17 04:08 Glucose 176 mg/dL (70-105) H 03/25/17 04:08 POC Glucose 148 MG/DL (70 - 105) H 03/25/17 05:41 Hemoglobin A1c % 5.4 % (4.0-6.0) 03/24/17 03:30 Whole Bld Lactic Acid 1.35 mmol/L (0.60-1.99) 03/24/17 03:30 Calcium 8.2 mg/dL (8.6-10.3) L 03/25/17 04:08 Total Bilirubin 0.3 mg/dL (0.3-1.0) 03/25/17 04:08 AST 31 U/L (13-39) 03/25/17 04:08 ALT 21 U/L (7-52) 03/25/17 04:08 Alkaline Phosphatase 89 U/L (34-104) 03/25/17 04:08 B-Natriuretic Peptide 265.0 pg/mL (5.0-100.0) H 03/25/17 04:08 Total Protein 6.3 gm/dL (6.0-8.3) 03/25/17 04:08 Albumin 3.0 gm/dL (4.2-5.5) L 03/25/17 04:08 Globulin 3.3 gm/dL 03/25/17 04:08 Albumin/Globulin Ratio 0.9 (1.0-1.8) L 03/25/17 04:08 Phenytoin 16.2 ug/ml (10.0-20.0) 03/24/17 03:30 - Physical Exam Vitals and I&O: Vital Signs Temp 97.8 F 03/25/17 04:00 Pulse 81 03/25/17 07:00 Resp 16 03/25/17 07:00 BP 123/50 03/25/17 07:00 Pulse Ox 97 03/25/17 07:00 Intake & Output 03/24/17 03/25/17 03/25/17 18:59 06:59 18:59 Intake Total 500 1640.833 Output Total 650 475 Balance -150 1165.833 Weight (lbs) 91.626 kg 92.306 kg Intake: Intake, IV Amount 940.833 Sodium Chloride 0.9% 1, 940.833 000 ml @ 50 mls/hr IV . Q20H [facility] Rx#:[id number] Tube Feeding 300 600 Other 200 100 Output: Urine 650 475 Other: # Bowel Movements 0 Active Medications: Current Medications Acetaminophen (Tylenol 650mg/20.3ml Suspension) 650 mg GT Q4HR PRN PRN Reason: FEVER >100.4 OR FOR PAIN Stop: 05/23/17 08:13 Albuterol/Ipratropium (Duoneb Neb) 3 ml HHN Q6HRT PRN PRN Reason: Shortness of Breath Stop: 12/10/17 06:56 Last Admin: 03/25/17 04:56 Dose: 3 ml Ascorbic Acid (Vitamin C) 500 mg GT DAILY [facility] Stop: 05/23/17 08:59 Last Admin: 03/24/17 17:32 Dose: 500 mg Bisacodyl (Dulcolax 10 Mg Supp) 10 mg RC DAILY PRN PRN Reason: Constipation Stop: 05/23/17 08:13 Budesonide (Pulmicort) 0.5 mg HHN BIDRT [place] Stop: 05/23/17 18:59 Last Admin: 03/24/17 18:55 Dose: 0.5 mg Sodium Chloride (Nacl 0.9%) 1,000 mls @ 50 mls/hr IV .Q20H [facility] Stop: 05/23/17 08:29 Last Admin: 03/25/17 06:14 Dose: 50 mls/hr Levofloxacin (Levaquin Pb) 500 mg in 100 mls @ 100 mls/hr IV Q24H [facility] Stop: 05/24/17 04:59 Last Admin: 03/25/17 04:46 Dose: 100 mls/hr Insulin Aspart (Novolog Insulin Sliding Scale) 0 units SUBQ ACHS [place] PRN Reason: Protocol Stop: 05/23/17 11:29 Last Admin: 03/24/17 21:16 Dose: 2 units Levetiracetam (Keppra) 750 mg GT Q12HR [facility] Stop: 05/23/17 08:59 Last Admin: 03/24/17 21:14 Dose: 750 mg Magnesium Hydroxide (Milk Of Magnesia) 30 ml GT DAILY PRN PRN Reason: IF NO BM IN TWO DAYS Stop: 05/23/17 08:13 Methylprednisolone Sodium Succinate (Solu-Medrol) 125 mg IVP Q8HR [facility] Stop: 05/23/17 12:59 Last Admin: 03/25/17 05:57 Dose: 125 mg Miscellaneous (Vte Chemical Prophylaxis Screen/ Admission) 1 ea [facility] PRN PRN PRN Reason: PROTOCOL Stop: 05/23/17 12:47 Miscellaneous (Probiotic Screen) 1 ea MC PRN PRN PRN Reason: PROTOCOL Stop: 05/23/17 13:44 Multivitamins/Vitamin C (Theragran) 1 tab GT DAILY [facility] Stop: 05/23/17 08:59 Last Admin: 03/24/17 17:33 Dose: 1 tab Ondansetron HCl (Zofran Odt) 4 mg SL Q6HR PRN PRN Reason: Vomiting Pantoprazole Sodium (Protonix) 40 mg GT DAILY [place] Stop: 05/23/17 08:59 Last Admin: 03/24/17 17:33 Dose: 40 mg Phenytoin (Dilantin) 300 mg GT TID [place] Stop: 05/23/17 08:59 Last Admin: 03/24/17 21:55 Dose: 300 mg Sodium Phosphate (Fleet Enema) 135 ml RC Q48H PRN PRN Reason: IF MOM OR DULCOLAX INEFFECTIVE Stop: 05/23/17 08:13 Valproate Sodium (Depakene) 500 mg GT Q12H [place] PRN Reason: Protocol Stop: 05/23/17 08:59 Last Admin: 03/24/17 21:15 Dose: 500 mg Warfarin Sodium (Coumadin Per Pharmacy) 1 ea [facility] PRN PRN; Protocol PRN Reason: RX MONITORING Stop: 05/23/17 08:15 Zinc Sulfate (Zinc Sulfate) 220 mg GT DAILY [facility] Stop: 05/23/17 08:59 General: Other HEENT: Atraumatic, PERRLA, EOMI Neck: Supple Cardiovascular: Regular rate, Normal S1, Normal S2 Lungs: Other (decreased breath sounds) Abdomen: Bowel sounds, Soft Extremities: no Clubbing, no Cyanosis, no Edema - Procedures Procedures: Procedures Procedure Code Date ASSISTANCE WITH RESPIRATORY VENTILATION, 24-96 HRS, CPAP [id number] 03/24/17 CHANGE FEEDING DEVICE IN UP INTEST TRACT, CHAIN SALES REPRESENTATIVE APPROACH [id number] 01/18/17 CHANGE GASTROSTOMY TUBE 11418 01/18/17 CLOSURE SKIN & SUBCUTANEOUS NEC 86.59 03/07/12 GROUP PSYCHOTHERAPY 10113 10/25/15 GROUP PSYCHOTHERAPY [id number] 10/25/15 IMMUNIZATION ADMIN 25536 07/30/13 INSERT INDWELLING CATH 57.94 01/31/10 INSERT TEMP BLADDER CATH 42289 01/31/10 OTHER GROUP THERAPY 94.44 02/23/12 POS AIRWAY PRESSURE CPAP 86706 03/24/17 RECREATIONAL THERAPY 93.81 02/23/12 RPR F/E/E/N/L/M 2.6-5.0 [place] [address] 03/07/12 VACCINATION NEC 99.55 07/30/13 VACCINE TOXOID 76233 07/30/13 Assessment/Plan - Problem List Patient Problems: All Active Problems Pneumonia (Active) J18.9 DISLODGED GASTROSTOMY TUBE (Acute) GASTRIC TUBE DISLODGEMENT (Acute) Psychiatric disorder (Acute) F99 The administrative codes within the [employer] content you are accessing may have as of 09/13/2015. Please contact your IT Dept/Help Desk and request the latest Regulatory release be installed. IT Dept/Help Desk- Please refer to our FAQ page ([email or web address]) or contact [employer] Customer Support at [email or web address] (Acute) - Assessment Assessment: s/p acute respiratory failure off BiPaP CHF (mild) --- ECHO to follow, cardiology consult COPD ... IV solumedrol, IV Levoquin, Chest xray pneumonia r/o aspiration leukocytosis WBC 13K -- 9K hyponatremia Na 121-129 diabetes mellitus ... stable HTN ... stable coagulopathy ... coumadin per pharmacy dehydration ... improved. - Plan Plan: CXR CBC CMP pulmonary consult, cardiology consult
[2017-03-25] MEDS: Budesonide 0.5 Mg/2 mL Ud HHN SCH ×2 (08:06→19:31)
--- NOTE | 2017-03-25 08:12 | Diagnostic Imaging Report ---
Exam: Portable examination of chest. HISTORY: Chest congestion Findings: Portable examination of chest at 0758 hours reviewed. The study compared to prior of 03/07/2017 demonstrates cardiomegaly mild congestion. The costophrenic angles are clear. Bony thorax is intact. The aortic arch calcified. No acute pulmonic infiltrates are noted. IMPRESSION: cardiomegaly mild congestive heart failure changes.
[2017-03-25] MEDS: Multivitamin Tab GT SCH (08:50)
[2017-03-25] MEDS: Levetiracetam 500 mg/5mL 5mL UDC GT SCH ×2 (08:51→20:43)
[2017-03-25] MEDS: Pantoprazole 40 mg/Packet GT SCH (08:52)
[2017-03-25] MEDS: INSULIN ASPART SLIDING SCALE 100 UNITS/ML UNIT SUBQ SCH ×4 (08:53→20:52)
[2017-03-25 09:10] LABS: MAGNESIUM 1.9 mg/dL (1.9-2.7)
[2017-03-25 10:08] LABS: INR 2.61 (0.5-1.4); PROTHROMBIN TIME (TEST) 28.5 SECONDS (9.5-11.5)
[2017-03-25] MEDS ORDERED: Sodium Chloride 0.9% 1,000 ML IV SCH (13:50)
[2017-03-25] MEDS: methylPREDNISolone SS 40 mg Vial IV SCH ×3 (14:00→23:57)
[2017-03-25] MEDS: Albuterol/Ipratropium Neb 3 ML AERS HHN SCH ×3 (14:17→23:20)
--- NOTE | 2017-03-25 16:35 | Cardiology ---
03/24/[address] Gunn. M-MODE ECHO: Mitral valve, anterior leaflets of mitral valve shows normal excursion, EF velocity. Posterior leaflet of the mitral valve shows normal excursion. Left ventricular posterior wall shows increased thickness, normal excursion. Interventricular septum shows increased thickness, normal excursion, hypertrophy of the left ventricle, ejection fraction 55%. Left atrium normal. Aortic root shows normal dimension, sclerosis of aortic leaflets with aortic stenosis. CONCLUSION: Aortic stenosis, hypertrophy of the left ventricle. 2D ECHO: Long axis view showed normal sized left ventricle with hypertrophy of the left ventricle. Left atrium normal. Aortic root shows normal dimension. Aortic leaflets shows aortic stenosis. Short axis view of mitral valve normal. Short axis view of aortic valve shows aortic stenosis. Apical four chamber view showed normal sized left ventricle with hypertrophy of the left ventricle. Left atrium normal. Right ventricular cavity, right atrium normal. No pericardial effusion. CONCLUSION: Hypertrophy of the left ventricle, aortic stenosis. Doppler study shows prominent A wave consistent with poor compliance of left ventricle. Aortic valve area 1.32 square cm. Pressure gradient of 21 mmHg. JOB# [id number]
[2017-03-26] MEDS: Albuterol/Ipratropium Neb 3 ML AERS HHN SCH ×6 (03:09→22:52)
[2017-03-26 04:54] LABS: % BASOPHILS 0.1 % (0.0-2.0); % LYMPHOCYTES 3.3 % (20.0-50.0); % MONOCYTES 7.8 % (2.0-10.0); % NEUTROPHILS 88.8 % (40.0-80.0); HEMATOCRIT 34.7 % (41.0-60); HEMOGLOBIN 12.1 gm/dL (12-16); MEAN CELL VOLUME 92.3 fl (80-99); MEAN CORPUSCULAR HEMOGLOBIN 32.1 pg (27.0-31.0); MEAN CORPUSCULAR HGB CONC 34.8 pg (28.0-36.0); MEAN PLATELET VOLUME 7.9 fl; NEUTROPHILE ABSOLUTE 5.8 Th/cmm (1.8-8.0); PLATELET COUNT 237 Th/cmm (150-400); RED BLOOD COUNT 3.76 Mil/cmm (3.80-5.80); RED CELL DISTRIBUTION WIDTH 12.7 % (11.5-20.0); WHITE BLOOD COUNT 6.5 Th/cmm (4.8-10.8)
[2017-03-26 05:01] LABS: INR 2.05 (0.5-1.4); PROTHROMBIN TIME (TEST) 22.2 SECONDS (9.5-11.5)
[2017-03-26 05:06] LABS: ANION GAP 5.5 (7.0-16.0); BUN - UREA NITROGEN 30 mg/dL (7-25); CALCIUM SERUM 8.4 mg/dL (8.6-10.3); CARBON DIOXIDE 39.1 mEq/L (21.0-31.0); CHLORIDE 92 mEq/L (98-107); CREATININE - SERUM 0.5 mg/dL (0.7-1.3); GLUCOSE 170 mg/dL (70-105); POTASSIUM SERUM 4.6 mEq/L (3.5-5.1); SODIUM SERUM 132 mEq/L (136-145)
[2017-03-26] MEDS: INSULIN ASPART SLIDING SCALE 100 UNITS/ML UNIT SUBQ SCH ×4 (07:22→20:26)
[2017-03-26] MEDS: Budesonide 0.5 Mg/2 mL Ud HHN SCH ×2 (07:26→19:15)
--- NOTE | 2017-03-26 08:10 | Diagnostic Imaging Report ---
CHEST X-RAY: AP view INDICATION: Shortness of breath COMPARISON: 03/15/2017 FINDINGS: Chronic lung changes are seen with no focal consolidation or evidence of nallely CHF. Cardiomegaly is noted with atherosclerosis. IMPRESSION: Chronic lung changes. No focal consolidation or evidence of nallely CHF. Cardiomegaly atherosclerosis.
--- NOTE | 2017-03-26 08:17 | General Progress Note ---
Subjective - Review of Systems Service Date: 03/26/17 Subjective: Patient's condition unchanged. unresponsive to verbal commands. opens eyes. on BiPap Objective - Results Result Diagrams: 03/26/17 04:18 03/26/17 04:18 Recent Labs: Laboratory Last Values WBC 6.5 Th/cmm (4.8-10.8) 03/26/17 04:18 RBC 3.76 Mil/cmm (3.80-5.80) L 03/26/17 04:18 Hgb 12.1 gm/dL (12-16) 03/26/17 04:18 Hct 34.7 % (41.0-60) L 03/26/17 04:18 MCV 92.3 fl (80-99) 03/26/17 04:18 MCH 32.1 pg (27.0-31.0) H 03/26/17 04:18 MCHC Differential 34.8 pg (28.0-36.0) 03/26/17 04:18 RDW 12.7 % (11.5-20.0) 03/26/17 04:18 Plt Count 237 Th/cmm (150-400) 03/26/17 04:18 MPV 7.9 fl 03/26/17 04:18 Neutrophils % 88.8 % (40.0-80.0) H 03/26/17 04:18 Band Neutrophils % 3 % (0-10) 03/24/17 03:30 Lymphocytes % 3.3 % (20.0-50.0) L 03/26/17 04:18 Monocytes % 7.8 % (2.0-10.0) 03/26/17 04:18 Eosinophils % 0.0 % (0.0-5.0) 03/26/17 04:18 Basophils % 0.1 % (0.0-2.0) 03/26/17 04:18 Neutrophils (Manual) 89 % (40-80) H 03/24/17 03:30 Lymphocytes 7 % (20-50) L 03/24/17 03:30 Monocytes 1 % (2-10) L 03/24/17 03:30 Platelet Estimate ADEQUATE (NORMAL) 03/24/17 03:30 PT 22.2 SECONDS (9.5-11.5) H 03/26/17 04:18 INR 2.05 (0.5-1.4) H 03/26/17 04:18 PTT (Actin FS) 34.5 SECONDS (26.0-38.0) 03/24/17 03:30 Specimen Source Arterial 03/24/17 06:30 Sample Site Right Radial 03/24/17 06:30 pH 7.44 (7.35-7.45) 03/24/17 06:30 pCO2 52.0 mmHg (35.0-45.0) H 03/24/17 06:30 pO2 165.0 mmHg (80.0-100.0) H 03/24/17 06:30 HCO3 32.4 mEq/L (20.0-26.0) H 03/24/17 06:30 Base Excess 9.5 mEq/L (-3.0-3.0) H 03/24/17 06:30 O2 Saturation 100.0 % (92.0-100.0) 03/24/17 06:30 Shamar Test YES 03/24/17 06:30 Vent Rate NA 03/24/17 06:30 Inspired O2 100 03/24/17 06:30 Tidal Volume NA 03/24/17 06:30 PEEP NA 03/24/17 06:30 Pressure (ins/psv/peep) NA 03/24/17 06:30 Critical Value E.ARREOLA 03/24/17 06:30 Sodium 132 mEq/L (136-145) L 03/26/17 04:18 Potassium 4.6 mEq/L (3.5-5.1) 03/26/17 04:18 Chloride 92 mEq/L (98-107) L 03/26/17 04:18 Carbon Dioxide 39.1 mEq/L (21.0-31.0) H 03/26/17 04:18 Anion Gap 5.5 (7.0-16.0) L 03/26/17 04:18 BUN 30 mg/dL (7-25) H 03/26/17 04:18 Creatinine 0.5 mg/dL (0.7-1.3) L 03/26/17 04:18 Est GFR ( Amer) TNP 03/26/17 04:18 Est GFR (Non-Af Amer) TNP 03/26/17 04:18 BUN/Creatinine Ratio 60.0 03/26/17 04:18 Glucose 170 mg/dL (70-105) H 03/26/17 04:18 POC Glucose 193 MG/DL (70 - 105) H 03/25/17 20:46 Hemoglobin A1c % 5.4 % (4.0-6.0) 03/24/17 03:30 Whole Bld Lactic Acid 1.35 mmol/L (0.60-1.99) 03/24/17 03:30 Calcium 8.4 mg/dL (8.6-10.3) L 03/26/17 04:18 Phosphorus 3.0 mg/dL (2.5-5.0) 03/25/17 04:08 Magnesium 1.9 mg/dL (1.9-2.7) 03/25/17 04:08 Total Bilirubin 0.3 mg/dL (0.3-1.0) 03/25/17 04:08 AST 31 U/L (13-39) 03/25/17 04:08 ALT 21 U/L (7-52) 03/25/17 04:08 Alkaline Phosphatase 89 U/L (34-104) 03/25/17 04:08 Ammonia 55 umol/L (16-53) H 03/26/17 04:18 B-Natriuretic Peptide 133.0 pg/mL (5.0-100.0) H 03/26/17 04:18 Total Protein 6.3 gm/dL (6.0-8.3) 03/25/17 04:08 Albumin 3.0 gm/dL (4.2-5.5) L 03/25/17 04:08 Globulin 3.3 gm/dL 03/25/17 04:08 Albumin/Globulin Ratio 0.9 (1.0-1.8) L 03/25/17 04:08 TSH 0.81 uIU/ml (0.34-5.60) 03/25/17 04:08 Phenytoin 16.2 ug/ml (10.0-20.0) 03/24/17 03:30 - Physical Exam Vitals and I&O: Vital Signs Temp 98.9 F 03/26/17 08:00 Pulse 86 03/26/17 08:00 Resp 22 03/26/17 08:00 BP 164/84 03/26/17 08:00 Pulse Ox 98 03/26/17 08:00 Intake & Output 03/25/17 03/26/17 03/26/17 18:59 06:59 18:59 Intake Total 800 650 Output Total 950 1800 Balance -150 -1150 Weight (lbs) 92.079 kg 92.079 kg Intake: Intake, IV Amount 350 Levofloxacin 500mg/100mL 100 500 mg In 100 ml @ 100 mls/hr IV Q24H [facility] Rx#: [id number] Vancomycin HCl 1.25 gm In 250 Sodium Chloride 0.9% 250 ml @ 165 mls/hr IV Q12H [facility] Rx#:[id number] Tube Feeding 300 650 Other 150 Output: Urine 950 1800 Active Medications: Current Medications Acetaminophen (Tylenol 650mg/20.3ml Suspension) 650 mg GT Q4HR PRN PRN Reason: FEVER >100.4 OR FOR PAIN Stop: 05/23/17 08:13 Albuterol/Ipratropium (Duoneb Neb) 3 ml HHN Q4HRT [facility] Stop: 05/24/17 14:59 Last Admin: 03/26/17 07:11 Dose: 3 ml Ascorbic Acid (Vitamin C) 500 mg GT DAILY [facility] Stop: 05/23/17 08:59 Last Admin: 03/25/17 08:50 Dose: 500 mg Bisacodyl (Dulcolax 10 Mg Supp) 10 mg RC DAILY PRN PRN Reason: Constipation Stop: 05/23/17 08:13 Budesonide (Pulmicort) 0.5 mg HHN BIDRT [facility] Stop: 05/24/17 18:59 Last Admin: 03/26/17 07:26 Dose: 0.5 mg Sodium Chloride (Nacl 0.9%) 1,000 mls @ 20 mls/hr IV .Q24H [facility] Stop: 05/24/17 13:49 Vancomycin HCl 1.25 gm/ Sodium (Chloride) 250 mls @ 165 mls/hr IV Q12H [facility] Stop: 05/24/17 15:59 Last Admin: 03/26/17 04:10 Dose: 165 mls/hr Insulin Aspart (Novolog Insulin Sliding Scale) 0 units SUBQ ACHS [facility] PRN Reason: Protocol Stop: 05/23/17 11:29 Last Admin: 03/26/17 07:22 Dose: 2 units Levetiracetam (Keppra) 750 mg GT Q12HR [facility] Stop: 05/23/17 08:59 Last Admin: 03/25/17 20:43 Dose: 750 mg Magnesium Hydroxide (Milk Of Magnesia) 30 ml GT DAILY PRN PRN Reason: IF NO BM IN TWO DAYS Stop: 05/23/17 08:13 Methylprednisolone Sodium Succinate (Solu-Medrol) 60 mg IV Q6HR [facility] Stop: 05/24/17 13:59 Last Admin: 03/25/17 23:57 Dose: 60 mg Miscellaneous (Vte Chemical Prophylaxis Screen/ Admission) 1 ea PRN PRN PRN Reason: PROTOCOL Stop: 05/23/17 12:47 Miscellaneous (Probiotic Screen) 1 ea PRN PRN PRN Reason: PROTOCOL Stop: 05/23/17 13:44 Miscellaneous (Vancomycin Iv Per Pharmacy) 1 ea PRN PRN PRN Reason: PROTOCOL Stop: 05/24/17 13:47 Multivitamins/Vitamin C (Theragran) 1 tab GT DAILY [facility] Stop: 05/23/17 08:59 Last Admin: 03/25/17 08:50 Dose: 1 tab Ondansetron HCl (Zofran Odt) 4 mg SL Q6HR PRN PRN Reason: Vomiting Pantoprazole Sodium (Protonix) 40 mg GT DAILY [facility] Stop: 05/23/17 08:59 Last Admin: 03/25/17 08:52 Dose: 40 mg Phenytoin (Dilantin) 300 mg GT TID [facility] Stop: 05/23/17 08:59 Last Admin: 03/25/17 20:40 Dose: 300 mg Sodium Phosphate (Fleet Enema) 135 ml RC Q48H PRN PRN Reason: IF MOM OR DULCOLAX INEFFECTIVE Stop: 05/23/17 08:13 Valproate Sodium (Depakene) 500 mg GT Q12H [facility] PRN Reason: Protocol Stop: 05/23/17 08:59 Last Admin: 03/25/17 20:40 Dose: 500 mg Warfarin Sodium (Coumadin Per Pharmacy) 1 ea PRN PRN; Protocol PRN Reason: RX MONITORING Stop: 05/23/17 08:15 Zinc Sulfate (Zinc Sulfate) 220 mg GT DAILY [facility] Stop: 05/23/17 08:59 Last Admin: 03/25/17 08:50 Dose: 220 mg General: Other HEENT: Atraumatic, PERRLA, EOMI Neck: Supple Cardiovascular: Regular rate, Normal S1, Normal S2 Lungs: Other (decreased breath sounds) Abdomen: Bowel sounds, Soft Extremities: no Clubbing, no Cyanosis, no Edema - Procedures Procedures: Procedures Procedure Code Date ASSISTANCE WITH RESPIRATORY VENTILATION, 24-96 HRS, CPAP [id number] 03/24/17 CHANGE FEEDING DEVICE IN UP INTEST TRACT, LEAD SPRINKLER APPROACH [id number] 01/18/17 CHANGE GASTROSTOMY TUBE 82504 01/18/17 CLOSURE SKIN & SUBCUTANEOUS NEC 86.59 03/07/12 GROUP PSYCHOTHERAPY 13844 10/25/15 GROUP PSYCHOTHERAPY [id number] 10/25/15 IMMUNIZATION ADMIN 16719 07/30/13 INSERT INDWELLING CATH 57.94 01/31/10 INSERT TEMP BLADDER CATH 21826 01/31/10 OTHER GROUP THERAPY 94.44 02/23/12 POS AIRWAY PRESSURE CPAP 53193 03/24/17 RECREATIONAL THERAPY 93.81 02/23/12 RPR F/E/E/N/L/M 2.6-5.0 [place] [address] 03/07/12 VACCINATION NEC 99.55 07/30/13 VACCINE TOXOID 34693 07/30/13 Assessment/Plan - Problem List Patient Problems: All Active Problems Pneumonia (Active) J18.9 DISLODGED GASTROSTOMY TUBE (Acute) GASTRIC TUBE DISLODGEMENT (Acute) Psychiatric disorder (Acute) F99 The administrative codes within the [facility] content you are accessing may have as of 09/13/2015. Please contact your IT Dept/Help Desk and request the latest Regulatory release be installed. IT Dept/Help Desk- Please refer to our FAQ page ([email or web address]) or contact [facility] Customer Support at [email or web address] (Acute) - Assessment Assessment: s/p acute respiratory failure ... on BiPaP CHF (mild) --- please see dictated ECHO report COPD ... continue IV solumedrol, IV Levoquin, albuterol pneumonia r/o aspiration ... leukocytosis WBC 13K -- 9K hyponatremia Na 121-129-132 diabetes mellitus ... stable HTN ... stable coagulopathy ... coumadin per pharmacy dehydration ... improved. - Plan Plan: CXR CBC CMP pulmonary consult, cardiology consult Nutritional Asmnt/Malnutr-PDOC - Dietary Evaluation Malnutrition Findings (Please click <Entered> for more info): Nutritional Asmnt/Malnutrition Start: 03/25/17 13: 34 Text: Status: Complete Freq: Document 03/25/17 13:48 SHANICE (Rec: 03/25/17 13:55 SHANICE GRIMMN -[id number]) Nutritional Asmnt/Malnutrition Patient General Information Nutritional Screening High Risk Screening Diagnosis Pneumonia Pertinent Medical Hx/Surgical Hx Pt is s/p acute respiratory failure, w/ mild CHF, COPD, pneumonia, r/o aspiration per MD notes PMH: CHF, DM, CVA w/ late effect, seizure disorder, COPD , dementia, HTN per MD notes Subjective Information Pt seen by RD for high risk trigger: Augustine 12. Pt was resting in bed, +bipap, +aphasic, w/ TF infusing as per MD orders. Pt appeared over-nourished for ht, c/w anthropometrics and verified by bedscale wt taken by RD. Per RN, pt has been tolerating TF well, and recently started on TF at 1200 today as per MD orders. RN reported that pt has been having thick secretions, and wasn't able to tolerate O2 via venti-mask. RN also stated that pt has 2+ non-pitting edema to bilateral lower extremities. Abd is non -tender/large/round, no BM, and residuals noted less than 30 ml per nursing notes Current TF regimen is adequate and appropriate. Pt is not appropriate for nutrition education. Current Diet Order/ Nutrition Support Nutren 2.0 at 50 ml/hr via GT x20 hours (1208-8130) Patient / S.O Can't verbalize diet edu Pertinent Medications VIT C, dulcolax, MOM, solu- medrol, theragran, zofran, dilantin, fleet enema, coumadin, zinc sulfate Pertinent Labs Na 128 L, BG 176 H, POC BG 148 H, BUN 26 H, CRE 0.4 L, ALB 3 L Nutritional Hx/Data Height 1.73 m Height (Calculated Centimeters) 172.7 Current Weight (lbs) 92.079 kg Weight (Calculated Kilograms) 92.1 Weight (Calculated Grams) 61215.3 [place] Body Weight 154 lb, 70 kg % [place] Body Weight 131 Weight Status Obese GI Symptoms GI Symptoms None Skin Integrity/Comment: Augustine: 12; skin intact per RN ; immobility noted per nursing notes Estimated Nutritional Goals BEE in Kcals: Adj wt of IBW Calories/Kcals/Kg 30-35 kcal/kg Adj IBW for COPD , respiratory failure Kcals Calculated 4930-9019 kcal/day Protein: Adj wt of IBW Protein g/k.3-2 gm/kg Adj IBW for COPD, respiratory failure Protein Calculated 99-152 gm/day Fluid: ml Per MD (CHF) Nutritional Problem 1. Problem Problem Increased nutritional needs Etiology related to metabolic demands Signs/Symptoms: as evidenced by estimated nutritional requirements for COPD and respiratory failure. Malnutrition Alert Is there a minimum of two criteria No selected? Query Text:Check all the applicable criteria. A minimum of two criteria are recommended for diagnosis of either severe or non-severe malnutrition. Malnutrition Related to Morbid Obesity Malnutrition related to morbid obesity No Intervention/Recommendation Comments * Recommend continuing Nutren 2.0 at 50 ml/hr via GT x20 hours (7401-0484) per MD Provides: 2000 kcal/day, 84 gm protein/day, and 692 ml free water/day Meets: 88% of lower end of estimated caloric needs and 85 % of lower end of estimated protein needs Expected Outcomes/Goals Expected Outcomes/Goals - Monitor tolerance to EN support w/ goal of pt meeting at least 85% of estimated nutritional needs, labs trending WNL, normal GI function, and skin integrity/ wt maintenance within 2-3 days
[2017-03-26 08:52] LABS: ABG SOURCE Arterial; BE(B) 17.7 mEq/L (-3.0-3.0); pH 7.38 (7.35-7.45)
[2017-03-26 08:53] LABS: ALLEN TEST YES; FIO2 50; MECH RATE 14; MECH VT 400
[2017-03-26 08:54] LABS: HCO3 38.8 mEq/L (20.0-26.0)
[2017-03-26] MEDS: Pantoprazole 40 mg/Packet GT SCH (09:35)
[2017-03-26] MEDS: Multivitamin Tab GT SCH (09:36)
[2017-03-26] MEDS: Levetiracetam 500 mg/5mL 5mL UDC GT SCH ×2 (09:39→20:23)
--- NOTE | 2017-03-26 11:08 | Progress Notes ---
DATE: 03/24/2017 REASON FOR CONSULTATION: Shortness of breath with respiratory failure. CONSULT NOTE: This is an 86-year-old gentleman who was basically brought from convalescent home because of report of increasingly shortness of breath. Subsequently, the patient was monitored KEVIN status, but subsequently the patient's breathing got more worse. Subsequently, he was brought to the ICU. Unfortunately, the patient opens eyes, but quite obtunded. Meaningful detailed history from the patient is not available. PERTINENT PAST MEDICAL HISTORY: History of COPD, possibly previous aspiration pneumonia, electrolyte imbalance, diabetes mellitus, hypertension, coagulopathy on this patient, but other than that no other symptomatology otherwise or other finding. Past medical history is also increased ALOC and possibly dysphagia, partial aphasia. He also has a G-tube with significant morbid obesity and suspect obstructive sleep apnea syndrome. PHYSICAL EXAMINATION: GENERAL: This is an elderly looking gentleman. Currently, on a BiPAP, in no respiratory distress, etc, mildly tachypneic. VITAL SIGNS: The patient's recorded, temperature is 97.5, blood pressure 117/64, saturation 100%, currently on a BiPAP 60% of oxygen. HEENT: Examination of the head is essentially unremarkable. Pupils appear to be equal and reactive to light. Conjunctivae are slightly pale. Oral cavity appears to be edentulous, otherwise unremarkable. HEART: Tachycardic, regular. ABDOMEN: Shows slightly distended with G-tube with post-surgical scar. EXTREMITIES: Shows poor pulsations ____ legs, otherwise unremarkable. PERTINENT LABORATORY STUDIES: White count is 8.1, hemoglobin 12 grams. Sodium is 128 and patient's BNP is 265. Chest x-ray shows slightly increased interstitial changes, do not believe this is heart failure. IMPRESSION: 1. The patient is in [id number] respiratory failure with severe bronchospasm with acute asthmatic bronchitis. Precipitating factor is not clearcut, possibly aspiration and/or complicated by ____ early developing pneumonitis. 2. Suspect associated obstructive sleep apnea syndrome. 3. History of diabetes mellitus, history of ____, history of morbid obesity. PLANS AND SUGGESTIONS: We will reset patient's BiPAP temporarily. We will give aggressive inhalation treatment, bronchodilator as well as inhaled steroid. We will go ahead and give IV steroid as well. We will await diuretics as the patient looks clinically dry and I do not believe the patient is in heart failure and I will be glad to follow along with her for further information in next 24-48 hours as to see how he is this morning and go from there. JOB# [id number]
[2017-03-26] MEDS: methylPREDNISolone SS 40 mg Vial IV SCH (11:23)
[2017-03-27] MEDS: Albuterol/Ipratropium Neb 3 ML AERS HHN SCH ×6 (03:23→23:07)
--- NOTE | 2017-03-27 04:43 | Progress Notes ---
DATE: 03/26/2017 PROBLEM LIST: 1. Acute respiratory failure, hypercarbia, severe bronchospasm. 2. Obstructive sleep apnea syndrome. 3. Morbid obesity with obesity hypoventilation syndrome. SYMPTOMS: Nil feeling, not communicative, still quite obtunded, no respiratory distress, etc. mildly tachypneic. PHYSICAL EXAMINATION: VITAL SIGNS: Temperature is 98.4, blood pressure is 150/60, and saturation 99 on 35% of oxygen. NECK: Veins not visualized. There is some audible wheezing. CHEST: Shows diminished air entry with lot of scattered high pitch wheezing. HEART: Regular. LABORATORY DATA: The patient's electrolytes are okay and patient's sugar is 167. The patient's other laboratory studies are essentially unremarkable. The patient's chest x-ray is still borderline cardiomegaly with very minimal interstitial changes. ASSESSMENT: The patient clinically has a severe acute bronchospasm with respiratory failure with the background of chronic obstructive pulmonary disease with ____ with sleep apnea syndrome with significant morbid obesity. PLANS AND SUGGESTIONS: We will continue current treatment. We will decrease FiO2. We will repeat blood gases, chest x-ray tomorrow again and see how it is and go from there. JOB# [id number]
[2017-03-27 04:52] LABS: % LYMPHOCYTES 6.1 % (20.0-50.0); % MONOCYTES 7.6 % (2.0-10.0); % NEUTROPHILS 86.3 % (40.0-80.0); HEMATOCRIT 35.5 % (41.0-60); MEAN CELL VOLUME 93.3 fl (80-99); MEAN CORPUSCULAR HEMOGLOBIN 31.6 pg (27.0-31.0); MEAN CORPUSCULAR HGB CONC 33.8 pg (28.0-36.0); MEAN PLATELET VOLUME 7.4 fl; NEUTROPHILE ABSOLUTE 4.5 Th/cmm (1.8-8.0); PLATELET COUNT 218 Th/cmm (150-400); RED BLOOD COUNT 3.81 Mil/cmm (3.80-5.80); RED CELL DISTRIBUTION WIDTH 12.8 % (11.5-20.0); WHITE BLOOD COUNT 5.2 Th/cmm (4.8-10.8)
[2017-03-27 05:07] LABS: INR 2.36 (0.5-1.4); PROTHROMBIN TIME (TEST) 25.7 SECONDS (9.5-11.5)
[2017-03-27 05:15] LABS: ALKALINE PHOSPHATASE 82 U/L (34-104); ANION GAP 6.2 (7.0-16.0); BILIRUBIN,TOTAL 0.2 mg/dL (0.3-1.0); BUN - UREA NITROGEN 34 mg/dL (7-25); CALCIUM SERUM 8.3 mg/dL (8.6-10.3); CARBON DIOXIDE 38.8 mEq/L (21.0-31.0); CHLORIDE 96 mEq/L (98-107); CREATININE - SERUM 0.4 mg/dL (0.7-1.3); GLUCOSE 195 mg/dL (70-105); SGOT 43 U/L (13-39); SGPT/ALT 34 U/L (7-52); SODIUM SERUM 136 mEq/L (136-145)
[2017-03-27] MEDS: Budesonide 0.5 Mg/2 mL Ud HHN SCH ×2 (07:17→18:41)
--- NOTE | 2017-03-27 07:34 | General Progress Note ---
Subjective - Review of Systems Service Date: 03/27/17 Subjective: Patient's condition unchanged. severely obtunded. no acute distress. on Venti Mask Objective - Results Result Diagrams: 03/27/17 04:33 03/27/17 04:33 Recent Labs: Laboratory Last Values WBC 5.2 Th/cmm (4.8-10.8) 03/27/17 04:33 RBC 3.81 Mil/cmm (3.80-5.80) 03/27/17 04:33 Hgb 12.0 gm/dL (12-16) 03/27/17 04:33 Hct 35.5 % (41.0-60) L 03/27/17 04:33 MCV 93.3 fl (80-99) 03/27/17 04:33 MCH 31.6 pg (27.0-31.0) H 03/27/17 04:33 MCHC Differential 33.8 pg (28.0-36.0) 03/27/17 04:33 RDW 12.8 % (11.5-20.0) 03/27/17 04:33 Plt Count 218 Th/cmm (150-400) 03/27/17 04:33 MPV 7.4 fl 03/27/17 04:33 Neutrophils % 86.3 % (40.0-80.0) H 03/27/17 04:33 Band Neutrophils % 3 % (0-10) 03/24/17 03:30 Lymphocytes % 6.1 % (20.0-50.0) L 03/27/17 04:33 Monocytes % 7.6 % (2.0-10.0) 03/27/17 04:33 Eosinophils % 0.0 % (0.0-5.0) 03/27/17 04:33 Basophils % 0.0 % (0.0-2.0) 03/27/17 04:33 Neutrophils (Manual) 89 % (40-80) H 03/24/17 03:30 Lymphocytes 7 % (20-50) L 03/24/17 03:30 Monocytes 1 % (2-10) L 03/24/17 03:30 Platelet Estimate ADEQUATE (NORMAL) 03/24/17 03:30 PT 22.2 SECONDS (9.5-11.5) H 03/26/17 04:18 INR 2.05 (0.5-1.4) H 03/26/17 04:18 PTT (Actin FS) 34.5 SECONDS (26.0-38.0) 03/24/17 03:30 Specimen Source Arterial 03/26/17 08:40 Sample Site Right Radial 03/26/17 08:40 pH 7.38 (7.35-7.45) 03/26/17 08:40 pCO2 79.0 mmHg (35.0-45.0) H* 03/26/17 08:40 pO2 221.0 mmHg (80.0-100.0) H 03/26/17 08:40 HCO3 38.8 mEq/L (20.0-26.0) H 03/26/17 08:40 Base Excess 17.7 mEq/L (-3.0-3.0) H 03/26/17 08:40 O2 Saturation 100.0 % (92.0-100.0) 03/26/17 08:40 Shamar Test YES 03/26/17 08:40 Vent Rate 14 03/26/17 08:40 Inspired O2 50 03/26/17 08:40 Tidal Volume 400 03/26/17 08:40 PEEP NA 03/26/17 08:40 Pressure (ins/psv/peep) NA 03/26/17 08:40 Critical Value E.ARREOLA 03/26/17 08:40 Sodium 136 mEq/L (136-145) 03/27/17 04:33 Potassium 5.0 mEq/L (3.5-5.1) 03/27/17 04:33 Chloride 96 mEq/L (98-107) L 03/27/17 04:33 Carbon Dioxide 38.8 mEq/L (21.0-31.0) H 03/27/17 04:33 Anion Gap 6.2 (7.0-16.0) L 03/27/17 04:33 BUN 34 mg/dL (7-25) H 03/27/17 04:33 Creatinine 0.4 mg/dL (0.7-1.3) L 03/27/17 04:33 Est GFR ( Amer) TNP 03/27/17 04:33 Est GFR (Non-Af Amer) TNP 03/27/17 04:33 BUN/Creatinine Ratio 85.0 03/27/17 04:33 Glucose 195 mg/dL (70-105) H 03/27/17 04:33 POC Glucose 224 MG/DL (70 - 105) H 03/26/17 20:21 Hemoglobin A1c % 5.4 % (4.0-6.0) 03/24/17 03:30 Whole Bld Lactic Acid 1.35 mmol/L (0.60-1.99) 03/24/17 03:30 Calcium 8.3 mg/dL (8.6-10.3) L 03/27/17 04:33 Phosphorus 3.0 mg/dL (2.5-5.0) 03/25/17 04:08 Magnesium 1.9 mg/dL (1.9-2.7) 03/25/17 04:08 Total Bilirubin 0.2 mg/dL (0.3-1.0) L 03/27/17 04:33 AST 43 U/L (13-39) H 03/27/17 04:33 ALT 34 U/L (7-52) 03/27/17 04:33 Alkaline Phosphatase 82 U/L (34-104) 03/27/17 04:33 Ammonia 100 umol/L (16-53) H 03/27/17 04:33 B-Natriuretic Peptide 133.0 pg/mL (5.0-100.0) H 03/26/17 04:18 Total Protein 5.9 gm/dL (6.0-8.3) L 03/27/17 04:33 Albumin 2.9 gm/dL (4.2-5.5) L 03/27/17 04:33 Globulin 3.0 gm/dL 03/27/17 04:33 Albumin/Globulin Ratio 1.0 (1.0-1.8) 03/27/17 04:33 TSH 0.81 uIU/ml (0.34-5.60) 03/25/17 04:08 Vancomycin Trough 13.4 ug/mL (10-20) 03/27/17 03:09 Phenytoin 16.2 ug/ml (10.0-20.0) 03/24/17 03:30 - Physical Exam Vitals and I&O: Vital Signs Temp 97.8 F 03/27/17 06:00 Pulse 85 03/27/17 07:23 Resp 27 03/27/17 07:23 BP 117/58 03/27/17 06:00 Pulse Ox 98 03/27/17 07:23 Intake & Output 03/26/17 03/27/17 03/27/17 18:59 06:59 18:59 Intake Total 1000 900 Output Total 660 600 Balance 340 300 Weight (lbs) 92.079 kg 92.079 kg Intake: Intake, IV Amount 250 250 Vancomycin HCl 1.25 gm In 250 250 Sodium Chloride 0.9% 250 ml @ 165 mls/hr IV Q12H [facility] Rx#:[id number] Tube Feeding 400 600 Other 350 50 Output: Urine 660 600 Other: # Bowel Movements 0 0 Active Medications: Current Medications Acetaminophen (Tylenol 650mg/20.3ml Suspension) 650 mg GT Q4HR PRN PRN Reason: FEVER >100.4 OR FOR PAIN Stop: 05/23/17 08:13 Last Admin: 03/26/17 18:10 Dose: 650 mg Albuterol/Ipratropium (Duoneb Neb) 3 ml HHN Q4HRT [facility] Stop: 05/24/17 14:59 Last Admin: 03/27/17 07:17 Dose: 3 ml Ascorbic Acid (Vitamin C) 500 mg GT DAILY [facility] Stop: 05/23/17 08:59 Last Admin: 03/26/17 09:38 Dose: 500 mg Bisacodyl (Dulcolax 10 Mg Supp) 10 mg RC DAILY PRN PRN Reason: Constipation Stop: 05/23/17 08:13 Budesonide (Pulmicort) 0.5 mg HHN BIDRT [facility] Stop: 05/24/17 18:59 Last Admin: 03/27/17 07:17 Dose: 0.5 mg Sodium Chloride (Nacl 0.9%) 1,000 mls @ 20 mls/hr IV .Q24H [facility] Stop: 05/24/17 13:49 Vancomycin HCl 1.25 gm/ Sodium (Chloride) 250 mls @ 165 mls/hr IV Q12H [facility] Stop: 05/24/17 15:59 Last Infusion: 03/27/17 06:05 Dose: Infused Insulin Aspart (Novolog Insulin Sliding Scale) 0 units SUBQ ACHS [facility] PRN Reason: Protocol Stop: 05/23/17 11:29 Last Admin: 03/26/17 20:26 Dose: 4 units Levetiracetam (Keppra) 750 mg GT Q12HR [facility] Stop: 05/23/17 08:59 Last Admin: 03/26/17 20:23 Dose: 750 mg Magnesium Hydroxide (Milk Of Magnesia) 30 ml GT DAILY PRN PRN Reason: IF NO BM IN TWO DAYS Stop: 05/23/17 08:13 Last Admin: 03/26/17 18:10 Dose: 30 ml Methylprednisolone Sodium Succinate (Solu-Medrol) 60 mg IV Q4HR [facility] Stop: 05/25/17 15:59 Last Admin: 03/27/17 04:32 Dose: 60 mg Metoprolol Tartrate (Lopressor) 25 mg GT Q12HR [facility] Stop: 05/25/17 08:59 Last Admin: 03/26/17 20:24 Dose: 25 mg Miscellaneous (Vte Chemical Prophylaxis Screen/ Admission) 1 ea PRN PRN PRN Reason: PROTOCOL Stop: 05/23/17 12:47 Miscellaneous (Probiotic Screen) 1 ea PRN PRN PRN Reason: PROTOCOL Stop: 05/23/17 13:44 Miscellaneous (Vancomycin Iv Per Pharmacy) 1 ea PRN PRN PRN Reason: PROTOCOL Stop: 05/24/17 13:47 Multivitamins/Vitamin C (Theragran) 1 tab GT DAILY [facility] Stop: 05/23/17 08:59 Last Admin: 03/26/17 09:36 Dose: 1 tab Ondansetron HCl (Zofran Odt) 4 mg SL Q6HR PRN PRN Reason: Vomiting Pantoprazole Sodium (Protonix) 40 mg GT DAILY [facility] Stop: 05/23/17 08:59 Last Admin: 03/26/17 09:35 Dose: 40 mg Phenytoin (Dilantin) 300 mg GT TID [facility] Stop: 05/23/17 08:59 Last Admin: 03/26/17 20:23 Dose: 300 mg Sodium Phosphate (Fleet Enema) 135 ml RC Q48H PRN PRN Reason: IF MOM OR DULCOLAX INEFFECTIVE Stop: 05/23/17 08:13 Valproate Sodium (Depakene) 500 mg GT Q12H [facility] PRN Reason: Protocol Stop: 05/23/17 08:59 Last Admin: 03/26/17 20:24 Dose: 500 mg Warfarin Sodium (Coumadin Per Pharmacy) 1 ea PRN PRN; Protocol PRN Reason: RX MONITORING Stop: 05/23/17 08:15 Zinc Sulfate (Zinc Sulfate) 220 mg GT DAILY [facility] Stop: 05/23/17 08:59 Last Admin: 03/26/17 09:37 Dose: 220 mg General: Other HEENT: Atraumatic, PERRLA, EOMI Neck: Supple Cardiovascular: Regular rate, Normal S1, Normal S2 Lungs: Other (decreased breath sounds) Abdomen: Bowel sounds, Soft Extremities: no Clubbing, no Cyanosis, no Edema - Procedures Procedures: Procedures Procedure Code Date ASSISTANCE WITH RESPIRATORY VENTILATION, 24-96 HRS, CPAP [id number] 03/24/17 CHANGE FEEDING DEVICE IN UP INTEST TRACT, PLASTIC PARTS FABRICATOR TRIMMER APPROACH 2C10DPL 01/18/17 CHANGE GASTROSTOMY TUBE 92233 01/18/17 CLOSURE SKIN & SUBCUTANEOUS NEC 86.59 03/07/12 GROUP PSYCHOTHERAPY 00154 10/25/15 GROUP PSYCHOTHERAPY [id number] 10/25/15 IMMUNIZATION ADMIN 13624 07/30/13 INSERT INDWELLING CATH 57.94 01/31/10 INSERT TEMP BLADDER CATH 87793 01/31/10 OTHER GROUP THERAPY 94.44 02/23/12 POS AIRWAY PRESSURE CPAP 74531 03/24/17 RECREATIONAL THERAPY 93.81 02/23/12 RPR F/E/E/N/L/M 2.6-5.0 [place] [address] 03/07/12 VACCINATION NEC 99.55 07/30/13 VACCINE TOXOID 34396 07/30/13 Assessment/Plan - Problem List Patient Problems: All Active Problems Pneumonia (Active) J18.9 DISLODGED GASTROSTOMY TUBE (Acute) GASTRIC TUBE DISLODGEMENT (Acute) Psychiatric disorder (Acute) F99 The administrative codes within the [employer] content you are accessing may have as of 09/13/2015. Please contact your IT Dept/Help Desk and request the latest Regulatory release be installed. IT Dept/Help Desk- Please refer to our FAQ page ([email or web address]) or contact [employer] Customer Support at [email or web address] (Acute) - Assessment Assessment: s/p acute respiratory failure ... on BiPaP CHF (mild) --- please see dictated ECHO report COPD ... continue IV solumedrol, IV Levoquin, albuterol pneumonia r/o aspiration ... leukocytosis WBC 13K -- 9K hyponatremia Na 121-129-132 diabetes mellitus ... stable HTN ... stable coagulopathy ... coumadin per pharmacy dehydration ... improved. hepatic encephalopathy w/ ammonia 100 -- will start lactulose. - Plan Plan: CXR CBC CMP pulmonary consult, cardiology consult Nutritional Asmnt/Malnutr-PDOC - Dietary Evaluation Malnutrition Findings (Please click <Entered> for more info): Nutritional Asmnt/Malnutrition Start: 03/25/17 13: 34 Text: Status: Complete Freq: Document 03/25/17 13:48 SHANICE (Rec: 03/25/17 13:55 MPROBIN DELGADILLO -[id number]) Nutritional Asmnt/Malnutrition Patient General Information Nutritional Screening High Risk Screening Diagnosis Pneumonia Pertinent Medical Hx/Surgical Hx Pt is s/p acute respiratory failure, w/ mild CHF, COPD, pneumonia, r/o aspiration per MD notes PMH: CHF, DM, CVA w/ late effect, seizure disorder, COPD , dementia, HTN per MD notes Subjective Information Pt seen by RD for high risk trigger: Augustine 12. Pt was resting in bed, +bipap, +aphasic, w/ TF infusing as per MD orders. Pt appeared over-nourished for ht, c/w anthropometrics and verified by bedscale wt taken by RD. Per RN, pt has been tolerating TF well, and recently started on TF at 1200 today as per MD orders. RN reported that pt has been having thick secretions, and wasn't able to tolerate O2 via venti-mask. RN also stated that pt has 2+ non-pitting edema to bilateral lower extremities. Abd is non -tender/large/round, no BM, and residuals noted less than 30 ml per nursing notes Current TF regimen is adequate and appropriate. Pt is not appropriate for nutrition education. Current Diet Order/ Nutrition Support Nutren 2.0 at 50 ml/hr via GT x20 hours ([id number]) Patient / S.O Can't verbalize diet edu Pertinent Medications VIT C, dulcolax, MOM, solu- medrol, theragran, zofran, dilantin, fleet enema, coumadin, zinc sulfate Pertinent Labs Na 128 L, BG 176 H, POC BG 148 H, BUN 26 H, CRE 0.4 L, ALB 3 L Nutritional Hx/Data Height 1.73 m Height (Calculated Centimeters) 172.7 Current Weight (lbs) 92.079 kg Weight (Calculated Kilograms) 92.1 Weight (Calculated Grams) 40261.3 [place] Body Weight 154 lb, 70 kg % [place] Body Weight 131 Weight Status Obese GI Symptoms GI Symptoms None Skin Integrity/Comment: Augustine: 12; skin intact per RN ; immobility noted per nursing notes Estimated Nutritional Goals BEE in Kcals: Adj wt of IBW Calories/Kcals/Kg 30-35 kcal/kg Adj IBW for COPD , respiratory failure Kcals Calculated 6077-7700 kcal/day Protein: Adj wt of IBW Protein g/k.3-2 gm/kg Adj IBW for COPD, respiratory failure Protein Calculated 99-152 gm/day Fluid: ml Per MD (CHF) Nutritional Problem 1. Problem Problem Increased nutritional needs Etiology related to metabolic demands Signs/Symptoms: as evidenced by estimated nutritional requirements for COPD and respiratory failure. Malnutrition Alert Is there a minimum of two criteria No selected? Query Text:Check all the applicable criteria. A minimum of two criteria are recommended for diagnosis of either severe or non-severe malnutrition. Malnutrition Related to Morbid Obesity Malnutrition related to morbid obesity No Intervention/Recommendation Comments * Recommend continuing Nutren 2.0 at 50 ml/hr via GT x20 hours ([id number]) per MD Provides: 2000 kcal/day, 84 gm protein/day, and 692 ml free water/day Meets: 88% of lower end of estimated caloric needs and 85 % of lower end of estimated protein needs Expected Outcomes/Goals Expected Outcomes/Goals - Monitor tolerance to EN support w/ goal of pt meeting at least 85% of estimated nutritional needs, labs trending WNL, normal GI function, and skin integrity/ wt maintenance within 2-3 days
[2017-03-27 08:41] LABS: ABG SOURCE Arterial; ALLEN TEST PASS; BE(B) 21.1 mEq/L (-3.0-3.0); CRITICAL VALUES REPORTED BY PW; FIO2 35; HCO3 41.4 mEq/L (20.0-26.0); pH 7.49 (7.35-7.45)
[2017-03-27] MEDS: Pantoprazole 40 mg/Packet GT SCH (09:11)
[2017-03-27] MEDS: Levetiracetam 500 mg/5mL 5mL UDC GT SCH ×2 (09:11→20:21)
[2017-03-27] MEDS: Lactulose 10 Gm/15 mL 30mL UDC PO SCH ×2 (09:11→16:41)
[2017-03-27] MEDS: Multivitamin Tab GT SCH (09:12)
[2017-03-27] MEDS: INSULIN ASPART SLIDING SCALE 100 UNITS/ML UNIT SUBQ SCH ×4 (09:12→20:32)
--- NOTE | 2017-03-27 09:54 | Diagnostic Imaging Report ---
CHEST X-RAY: AP view INDICATION: Shortness of breath COMPARISON: 03/26/2017 FINDINGS: Increase in lung markings are noted with no focal consolidation or pleural effusions. Cardiomegaly is noted with atherosclerosis. Degenerative changes of the spine are noted. IMPRESSION: Increased interstitial lung markings likely due to chronic lung changes. No focal consolidation evidence of nallely CHF. Cardiomegaly and atherosclerotic vascular disease.
[2017-03-27] MEDS ORDERED: Vancomycin HCl 1.5 GM in Sodium Chloride 0.9% 500 ML IV SCH (16:00)
[2017-03-28] MEDS: Albuterol/Ipratropium Neb 3 ML AERS HHN SCH ×5 (02:14→19:00)
[2017-03-28 05:32] LABS: % BASOPHILS 0.1 % (0.0-2.0); % EOSINOPHILS 0.1 % (0.0-5.0); % LYMPHOCYTES 5.5 % (20.0-50.0); % MONOCYTES 10.4 % (2.0-10.0); % NEUTROPHILS 83.9 % (40.0-80.0); HEMATOCRIT 36.5 % (41.0-60); HEMOGLOBIN 12.2 gm/dL (12-16); MEAN CORPUSCULAR HEMOGLOBIN 31.2 pg (27.0-31.0); MEAN CORPUSCULAR HGB CONC 33.5 pg (28.0-36.0); MEAN PLATELET VOLUME 7.6 fl; NEUTROPHILE ABSOLUTE 5.5 Th/cmm (1.8-8.0); PLATELET COUNT 237 Th/cmm (150-400); RED BLOOD COUNT 3.93 Mil/cmm (3.80-5.80)
[2017-03-28 05:33] LABS: WHITE BLOOD COUNT 6.6 Th/cmm (4.8-10.8)
[2017-03-28 05:36] LABS: INR 2.97 (0.5-1.4); PROTHROMBIN TIME (TEST) 32.7 SECONDS (9.5-11.5)
[2017-03-28 06:04] LABS: ALB/GLOB RATIO 0.9 (1.0-1.8); ALKALINE PHOSPHATASE 86 U/L (34-104); BILIRUBIN,TOTAL 0.2 mg/dL (0.3-1.0); BUN - UREA NITROGEN 36 mg/dL (7-25); CALCIUM SERUM 8.3 mg/dL (8.6-10.3); CARBON DIOXIDE 38.2 mEq/L (21.0-31.0); CHLORIDE 97 mEq/L (98-107); CREATININE - SERUM 0.4 mg/dL (0.7-1.3); GLUCOSE 178 mg/dL (70-105); POTASSIUM SERUM 4.2 mEq/L (3.5-5.1); SGOT 50 U/L (13-39); SGPT/ALT 53 U/L (7-52); SODIUM SERUM 138 mEq/L (136-145)
[2017-03-28] MEDS: Budesonide 0.5 Mg/2 mL Ud HHN SCH ×2 (06:27→19:00)
[2017-03-28] MEDS: INSULIN ASPART SLIDING SCALE 100 UNITS/ML UNIT SUBQ SCH ×4 (06:56→22:04)
--- NOTE | 2017-03-28 07:16 | General Progress Note ---
Subjective - Review of Systems Service Date: 03/28/17 Subjective: Patient more awake today. off Venti mask. no acute distress. afebrile. Objective - Results Result Diagrams: 03/28/17 04:51 03/28/17 04:51 Recent Labs: Laboratory Last Values WBC 6.6 Th/cmm (4.8-10.8) D 03/28/17 04:51 RBC 3.93 Mil/cmm (3.80-5.80) 03/28/17 04:51 Hgb 12.2 gm/dL (12-16) 03/28/17 04:51 Hct 36.5 % (41.0-60) L 03/28/17 04:51 MCV 93.0 fl (80-99) 03/28/17 04:51 MCH 31.2 pg (27.0-31.0) H 03/28/17 04:51 MCHC Differential 33.5 pg (28.0-36.0) 03/28/17 04:51 RDW 13.0 % (11.5-20.0) 03/28/17 04:51 Plt Count 237 Th/cmm (150-400) 03/28/17 04:51 MPV 7.6 fl 03/28/17 04:51 Neutrophils % 83.9 % (40.0-80.0) H 03/28/17 04:51 Band Neutrophils % 3 % (0-10) 03/24/17 03:30 Lymphocytes % 5.5 % (20.0-50.0) L 03/28/17 04:51 Monocytes % 10.4 % (2.0-10.0) H 03/28/17 04:51 Eosinophils % 0.1 % (0.0-5.0) 03/28/17 04:51 Basophils % 0.1 % (0.0-2.0) 03/28/17 04:51 Neutrophils (Manual) 89 % (40-80) H 03/24/17 03:30 Lymphocytes 7 % (20-50) L 03/24/17 03:30 Monocytes 1 % (2-10) L 03/24/17 03:30 Platelet Estimate ADEQUATE (NORMAL) 03/24/17 03:30 PT 32.7 SECONDS (9.5-11.5) H 03/28/17 04:51 INR 2.97 (0.5-1.4) H 03/28/17 04:51 PTT (Actin FS) 34.5 SECONDS (26.0-38.0) 03/24/17 03:30 Specimen Source Arterial 03/27/17 08:32 Sample Site Right Radial 03/27/17 08:32 pH 7.49 (7.35-7.45) H 03/27/17 08:32 pCO2 63.0 mmHg (35.0-45.0) H* 03/27/17 08:32 pO2 88.0 mmHg (80.0-100.0) 03/27/17 08:32 HCO3 41.4 mEq/L (20.0-26.0) H 03/27/17 08:32 Base Excess 21.1 mEq/L (-3.0-3.0) H 03/27/17 08:32 O2 Saturation 97.0 % (92.0-100.0) 03/27/17 08:32 Shamar Test PASS 03/27/17 08:32 Vent Rate 14 03/26/17 08:40 Inspired O2 35 03/27/17 08:32 Tidal Volume 400 03/26/17 08:40 PEEP NA 03/26/17 08:40 Pressure (ins/psv/peep) NA 03/26/17 08:40 Critical Value PW 03/27/17 08:32 Sodium 138 mEq/L (136-145) 03/28/17 04:51 Potassium 4.2 mEq/L (3.5-5.1) 03/28/17 04:51 Chloride 97 mEq/L (98-107) L 03/28/17 04:51 Carbon Dioxide 38.2 mEq/L (21.0-31.0) H 03/28/17 04:51 Anion Gap 7.0 (7.0-16.0) 03/28/17 04:51 BUN 36 mg/dL (7-25) H 03/28/17 04:51 Creatinine 0.4 mg/dL (0.7-1.3) L 03/28/17 04:51 Est GFR ( Amer) TNP 03/28/17 04:51 Est GFR (Non-Af Amer) TNP 03/28/17 04:51 BUN/Creatinine Ratio 90.0 03/28/17 04:51 Glucose 178 mg/dL (70-105) H 03/28/17 04:51 POC Glucose 188 MG/DL (70 - 105) H 03/28/17 04:58 Hemoglobin A1c % 5.4 % (4.0-6.0) 03/24/17 03:30 Whole Bld Lactic Acid 1.35 mmol/L (0.60-1.99) 03/24/17 03:30 Calcium 8.3 mg/dL (8.6-10.3) L 03/28/17 04:51 Phosphorus 3.0 mg/dL (2.5-5.0) 03/25/17 04:08 Magnesium 1.9 mg/dL (1.9-2.7) 03/25/17 04:08 Total Bilirubin 0.2 mg/dL (0.3-1.0) L 03/28/17 04:51 AST 50 U/L (13-39) H 03/28/17 04:51 ALT 53 U/L (7-52) H 03/28/17 04:51 Alkaline Phosphatase 86 U/L (34-104) 03/28/17 04:51 Ammonia 88 umol/L (16-53) H 03/28/17 04:51 B-Natriuretic Peptide 219.0 pg/mL (5.0-100.0) H 03/27/17 07:43 Total Protein 6.2 gm/dL (6.0-8.3) 03/28/17 04:51 Albumin 2.9 gm/dL (4.2-5.5) L 03/28/17 04:51 Globulin 3.3 gm/dL 03/28/17 04:51 Albumin/Globulin Ratio 0.9 (1.0-1.8) L 03/28/17 04:51 TSH 0.81 uIU/ml (0.34-5.60) 03/25/17 04:08 Vancomycin Trough 13.4 ug/mL (10-20) 03/27/17 03:09 Phenytoin 16.2 ug/ml (10.0-20.0) 03/24/17 03:30 - Physical Exam Vitals and I&O: Vital Signs Temp 99.2 F 03/28/17 04:00 Pulse 82 03/28/17 06:42 Resp 21 03/28/17 06:42 BP 153/79 03/28/17 05:49 Pulse Ox 99 03/28/17 06:42 Intake & Output 03/27/17 03/28/17 03/28/17 18:59 06:59 18:59 Intake Total 1100 1059.667 Output Total 550 800 Balance 550 259.667 Weight (lbs) 92.079 kg 91.626 kg Intake: Intake, IV Amount 500 409.667 Sodium Chloride 0.9% 1, 409.667 000 ml @ 20 mls/hr IV . Q24H [facility] Rx#:[id number] Vancomycin HCl 1.5 gm In 500 Sodium Chloride 0.9% 500 ml @ 250 mls/hr IV Q12H [facility] Rx#:[id number] Tube Feeding 400 450 Other 200 200 Output: Urine 550 800 Other: # Bowel Movements 1 1 Stool Characteristics Formed Soft Brown Active Medications: Current Medications Acetaminophen (Tylenol 650mg/20.3ml Suspension) 650 mg GT Q4HR PRN PRN Reason: FEVER >100.4 OR FOR PAIN Stop: 05/23/17 08:13 Last Admin: 03/26/17 18:10 Dose: 650 mg Albuterol/Ipratropium (Duoneb Neb) 3 ml HHN Q4HRT [facility] Stop: 05/24/17 14:59 Last Admin: 03/28/17 06:27 Dose: 3 ml Ascorbic Acid (Vitamin C) 500 mg GT DAILY [facility] Stop: 05/23/17 08:59 Last Admin: 03/27/17 09:11 Dose: 500 mg Bisacodyl (Dulcolax 10 Mg Supp) 10 mg RC DAILY PRN PRN Reason: Constipation Stop: 05/23/17 08:13 Budesonide (Pulmicort) 0.5 mg HHN BIDRT [facility] Stop: 05/24/17 18:59 Last Admin: 03/28/17 06:27 Dose: 0.5 mg Sodium Chloride (Nacl 0.9%) 1,000 mls @ 20 mls/hr IV .Q24H [facility] Stop: 05/24/17 13:49 Last Infusion: 03/28/17 06:00 Dose: 20 mls/hr Vancomycin HCl 1.5 gm/ Sodium (Chloride) 500 mls @ 250 mls/hr IV Q12H [facility] Stop: 05/27/17 08:59 Insulin Aspart (Novolog Insulin Sliding Scale) 0 units SUBQ ACHS [facility] PRN Reason: Protocol Stop: 05/23/17 11:29 Last Admin: 03/28/17 06:56 Dose: 2 units Lactulose (Cephulac) 30 gm PO BID [facility] Stop: 05/26/17 08:59 Last Admin: 03/27/17 16:41 Dose: 30 gm Levetiracetam (Keppra) 750 mg GT Q12HR [facility] Stop: 05/23/17 08:59 Last Admin: 03/27/17 20:21 Dose: 750 mg Magnesium Hydroxide (Milk Of Magnesia) 30 ml GT DAILY PRN PRN Reason: IF NO BM IN TWO DAYS Stop: 05/23/17 08:13 Last Admin: 03/26/17 18:10 Dose: 30 ml Methylprednisolone Sodium Succinate (Solu-Medrol) 60 mg IV Q4HR [facility] Stop: 05/25/17 15:59 Last Admin: 03/28/17 04:19 Dose: 60 mg Metoprolol Tartrate (Lopressor) 25 mg GT Q12HR [facility] Stop: 05/25/17 08:59 Last Admin: 03/27/17 20:24 Dose: 25 mg Miscellaneous (Vte Chemical Prophylaxis Screen/ Admission) 1 ea PRN PRN PRN Reason: PROTOCOL Stop: 05/23/17 12:47 Miscellaneous (Probiotic Screen) 1 ea PRN PRN PRN Reason: PROTOCOL Stop: 05/23/17 13:44 Miscellaneous (Vancomycin Iv Per Pharmacy) 1 [facility] PRN PRN PRN Reason: PROTOCOL Stop: 05/24/17 13:47 Multivitamins/Vitamin C (Theragran) 1 tab GT DAILY [facility] Stop: 05/23/17 08:59 Last Admin: 03/27/17 09:12 Dose: 1 tab Ondansetron HCl (Zofran Odt) 4 mg SL Q6HR PRN PRN Reason: Vomiting Pantoprazole Sodium (Protonix) 40 mg GT DAILY [facility] Stop: 05/23/17 08:59 Last Admin: 03/27/17 09:11 Dose: 40 mg Phenytoin (Dilantin) 300 mg GT TID [facility] Stop: 05/23/17 08:59 Last Admin: 03/27/17 20:20 Dose: 300 mg Sodium Phosphate (Fleet Enema) 135 ml RC Q48H PRN PRN Reason: IF MOM OR DULCOLAX INEFFECTIVE Stop: 05/23/17 08:13 Last Admin: 03/27/17 15:05 Dose: 135 ml Valproate Sodium (Depakene) 500 mg GT Q12H [facility] PRN Reason: Protocol Stop: 05/23/17 08:59 Last Admin: 03/27/17 20:20 Dose: 500 mg Warfarin Sodium (Coumadin Per Pharmacy) 1 ea [facility] PRN PRN; Protocol PRN Reason: RX MONITORING Stop: 05/23/17 08:15 Zinc Sulfate (Zinc Sulfate) 220 mg GT DAILY [facility] Stop: 05/23/17 08:59 Last Admin: 03/27/17 09:12 Dose: 220 mg General: Other HEENT: Atraumatic, PERRLA, EOMI Neck: Supple Cardiovascular: Regular rate, Normal S1, Normal S2 Lungs: Other (decreased breath sounds) Abdomen: Bowel sounds, Soft Extremities: no Clubbing, no Cyanosis, no Edema - Procedures Procedures: Procedures Procedure Code Date ASSISTANCE WITH RESPIRATORY VENTILATION, 24-96 HRS, CPAP [id number] 03/24/17 CHANGE FEEDING DEVICE IN UP INTEST TRACT, DENTAL INTERN APPROACH [id number] 01/18/17 CHANGE GASTROSTOMY TUBE 83742 01/18/17 CLOSURE SKIN & SUBCUTANEOUS NEC 86.59 03/07/12 GROUP PSYCHOTHERAPY 80883 10/25/15 GROUP PSYCHOTHERAPY [id number] 10/25/15 IMMUNIZATION ADMIN 53166 07/30/13 INSERT INDWELLING CATH 57.94 01/31/10 INSERT TEMP BLADDER CATH 58313 01/31/10 OTHER GROUP THERAPY 94.44 02/23/12 POS AIRWAY PRESSURE CPAP 01697 03/24/17 RECREATIONAL THERAPY 93.81 02/23/12 RPR F/E/E/N/L/M 2.6-5.0 [place] [address] 03/07/12 VACCINATION NEC 99.55 07/30/13 VACCINE TOXOID 48299 07/30/13 Assessment/Plan - Problem List Patient Problems: All Active Problems Pneumonia (Active) J18.9 DISLODGED GASTROSTOMY TUBE (Acute) GASTRIC TUBE DISLODGEMENT (Acute) Psychiatric disorder (Acute) F99 The administrative codes within the [employer] content you are accessing may have as of 09/13/2015. Please contact your IT Dept/Help Desk and request the latest Regulatory release be installed. IT Dept/Help Desk- Please refer to our FAQ page ([email or web address]) or contact [employer] Customer Support at [email or web address] (Acute) - Assessment Assessment: s/p acute respiratory failure ... on O2 support, IV solumedrol, IV Vancomycin CHF (mild) --- please see dictated ECHO report COPD ... continue IV solumedrol, IV Vancomycin, albuterol leukocytosis WBC 13K -- 9K hyponatremia Na [phone] ... improved. diabetes mellitus ... stable HTN ... stable coagulopathy ... coumadin per pharmacy dehydration ... improving hepatic encephalopathy w/ ammonia 100 --> 88 -- improving. will continue lactulose. - Plan Plan: s/p acute respiratory failure ... on O2 support, IV solumedrol, IV Vancomycin CHF (mild) --- please see dictated ECHO report COPD ... continue IV solumedrol, IV Vancomycin, albuterol leukocytosis WBC 13K -- 9K hyponatremia Na [id number] ... improved. diabetes mellitus ... stable HTN ... stable coagulopathy ... coumadin per pharmacy dehydration ... improving hepatic encephalopathy w/ ammonia 100 --> 88 -- improving. will continue lactulose. Nutritional Asmnt/Malnutr-PDOC - Dietary Evaluation Malnutrition Findings (Please click <Entered> for more info): Nutritional Asmnt/Malnutrition Start: 03/25/17 13: 34 Text: Status: Complete Freq: Document 03/25/17 13:48 SHANICE (Rec: 03/25/17 13:55 SHANIKAENAGUTIERREZ DELGADILLO -[id number]) Nutritional Asmnt/Malnutrition Patient General Information Nutritional Screening High Risk Screening Diagnosis Pneumonia Pertinent Medical Hx/Surgical Hx Pt is s/p acute respiratory failure, w/ mild CHF, COPD, pneumonia, r/o aspiration per MD notes PMH: CHF, DM, CVA w/ late effect, seizure disorder, COPD , dementia, HTN per MD notes Subjective Information Pt seen by RD for high risk trigger: Augustine 12. Pt was resting in bed, +bipap, +aphasic, w/ TF infusing as per MD orders. Pt appeared over-nourished for ht, c/w anthropometrics and verified by bedscale wt taken by RD. Per RN, pt has been tolerating TF well, and recently started on TF at 1200 today as per MD orders. RN reported that pt has been having thick secretions, and wasn't able to tolerate O2 via venti-mask. RN also stated that pt has 2+ non-pitting edema to bilateral lower extremities. Abd is non -tender/large/round, no BM, and residuals noted less than 30 ml per nursing notes Current TF regimen is adequate and appropriate. Pt is not appropriate for nutrition education. Current Diet Order/ Nutrition Support Nutren 2.0 at 50 ml/hr via GT x20 hours ([id number]) Patient / S.O Can't verbalize diet edu Pertinent Medications VIT C, dulcolax, MOM, solu- medrol, theragran, zofran, dilantin, fleet enema, coumadin, zinc sulfate Pertinent Labs Na 128 L, BG 176 H, POC BG 148 H, BUN 26 H, CRE 0.4 L, ALB 3 L Nutritional Hx/Data Height 1.73 m Height (Calculated Centimeters) 172.7 Current Weight (lbs) 92.079 kg Weight (Calculated Kilograms) 92.1 Weight (Calculated Grams) 10191.3 [place] Body Weight 154 lb, 70 kg % [place] Body Weight 131 Weight Status Obese GI Symptoms GI Symptoms None Skin Integrity/Comment: Augustine: 12; skin intact per RN ; immobility noted per nursing notes Estimated Nutritional Goals BEE in Kcals: Adj wt of IBW Calories/Kcals/Kg 30-35 kcal/kg Adj IBW for COPD , respiratory failure Kcals Calculated 2937-2921 kcal/day Protein: Adj wt of IBW Protein g/k.3-2 gm/kg Adj IBW for COPD, respiratory failure Protein Calculated 99-152 gm/day Fluid: ml Per MD (CHF) Nutritional Problem 1. Problem Problem Increased nutritional needs Etiology related to metabolic demands Signs/Symptoms: as evidenced by estimated nutritional requirements for COPD and respiratory failure. Malnutrition Alert Is there a minimum of two criteria No selected? Query Text:Check all the applicable criteria. A minimum of two criteria are recommended for diagnosis of either severe or non-severe malnutrition. Malnutrition Related to Morbid Obesity Malnutrition related to morbid obesity No Intervention/Recommendation Comments * Recommend continuing Nutren 2.0 at 50 ml/hr via GT x20 hours ([id number]) per MD Provides: 2000 kcal/day, 84 gm protein/day, and 692 ml free water/day Meets: 88% of lower end of estimated caloric needs and 85 % of lower end of estimated protein needs Expected Outcomes/Goals Expected Outcomes/Goals - Monitor tolerance to EN support w/ goal of pt meeting at least 85% of estimated nutritional needs, labs trending WNL, normal GI function, and skin integrity/ wt maintenance within 2-3 days
[2017-03-28] MEDS: Lactulose 10 Gm/15 mL 30mL UDC PO SCH ×2 (08:32→17:20)
[2017-03-28] MEDS: Multivitamin Tab GT SCH (08:33)
[2017-03-28] MEDS: Pantoprazole 40 mg/Packet GT SCH (08:33)
[2017-03-28] MEDS: Levetiracetam 500 mg/5mL 5mL UDC GT SCH ×2 (08:33→22:01)
[2017-03-28 08:43] LABS: HCO3 41.3 mEq/L (20.0-26.0); pH 7.48 (7.35-7.45)
[2017-03-28 08:44] LABS: ABG SOURCE Arterial; BE(B) 21.2 mEq/L (-3.0-3.0); CRITICAL VALUES REPORTED BY SH; FIO2 32
[2017-03-28] MEDS: Vancomycin HCl 1.5 GM in Sodium Chloride 0.9% 500 ML IV SCH ×2 (09:39→22:22)
[2017-03-28 11:11] LABS: HEP B CORE IGM Negative (Negative); HEP C ANTIBODY <0.1 s/co ratio (0.0-0.9)
[2017-03-28] MEDS ORDERED: Sodium Chloride 0.9% 1,000 ML IV SCH (16:42)
--- NOTE | 2017-03-28 19:53 | Progress Notes ---
DATE: 03/27/2017 PROBLEM LIST: 1. Acute respiratory failure. 2. Severe asthmatic bronchitis. 3. Underlying chronic obstructive pulmonary disease. 4. Obstructive sleep apnea syndrome. SYMPTOMS: Nil. The patient is mumbling, looking much better. His BiPAP currently O2 2 liters/minute appears to saturating okay. No respiratory distress, etc. PHYSICAL EXAMINATION: VITAL SIGNS: Temperature is 97.2, blood pressure 98/44, saturation 98 on 2 liters. NECK: Veins not visualized. CHEST: Shows occasional rhonchi with diminished air entry. ABDOMEN: Soft, nontender. LABORATORY DATA: The patient's white count is 5.2, hemoglobin 12.0 and patient's PT/INR is okay with anticoagulation. The patient's ABG is pCO2 is 63, pH of 7.47, pO2 is 88 on 35% of oxygen. ASSESSMENT: The patient clinically appears to be stable and appears to be improving. PLANS AND SUGGESTIONS: We will go ahead and continue current treatment. We will follow through studies in the next few days' time including blood gases at low flow oxygen and go from there. JOB# [id number]
[2017-03-28] MEDS: methylPREDNISolone SS 40 mg Vial IVP SCH (22:27)
[2017-03-29] MEDS: Albuterol/Ipratropium Neb 3 ML AERS HHN SCH ×5 (00:34→14:49)
[2017-03-29 03:15] LABS: % LYMPHOCYTES 13.4 % (20.0-50.0); % MONOCYTES 6.2 % (2.0-10.0); % NEUTROPHILS 79.4 % (40.0-80.0); HEMATOCRIT 35.7 % (41.0-60); HEMOGLOBIN 11.9 gm/dL (12-16); MEAN CELL VOLUME 94.6 fl (80-99); MEAN CORPUSCULAR HEMOGLOBIN 31.5 pg (27.0-31.0); MEAN CORPUSCULAR HGB CONC 33.2 pg (28.0-36.0); MEAN PLATELET VOLUME 7.2 fl; NEUTROPHILE ABSOLUTE 6.7 Th/cmm (1.8-8.0); PLATELET COUNT 209 Th/cmm (150-400); RED BLOOD COUNT 3.77 Mil/cmm (3.80-5.80); RED CELL DISTRIBUTION WIDTH 13.2 % (11.5-20.0)
[2017-03-29 03:16] LABS: WHITE BLOOD COUNT 8.4 Th/cmm (4.8-10.8)
[2017-03-29 03:28] LABS: INR 3.37 (0.5-1.4); PROTHROMBIN TIME (TEST) 37.3 SECONDS (9.5-11.5)
[2017-03-29 03:31] LABS: ALB/GLOB RATIO 0.9 (1.0-1.8); ALKALINE PHOSPHATASE 69 U/L (34-104); BILIRUBIN,TOTAL 0.2 mg/dL (0.3-1.0); BUN - UREA NITROGEN 37 mg/dL (7-25); BUN/CREATININE RATIO 92.5; CALCIUM SERUM 8.2 mg/dL (8.6-10.3); CHLORIDE 99 mEq/L (98-107); CREATININE - SERUM 0.4 mg/dL (0.7-1.3); GLUCOSE 104 mg/dL (70-105); POTASSIUM SERUM 3.9 mEq/L (3.5-5.1); SGOT 44 U/L (13-39); SGPT/ALT 58 U/L (7-52); SODIUM SERUM 141 mEq/L (136-145)
[2017-03-29 05:25] LABS: CARBON DIOXIDE 40.9 mEq/L (21.0-31.0)
[2017-03-29] MEDS: methylPREDNISolone SS 40 mg Vial IVP SCH ×2 (05:52→12:55)
[2017-03-29] MEDS: INSULIN ASPART SLIDING SCALE 100 UNITS/ML UNIT SUBQ SCH ×3 (06:38→17:53)
[2017-03-29] MEDS: Budesonide 0.5 Mg/2 mL Ud HHN SCH (06:48)
--- NOTE | 2017-03-29 08:12 | General Progress Note ---
Subjective - Review of Systems Service Date: 03/29/17 Subjective: Patient more awake today. off Venti mask. no acute distress. afebrile. Objective - Results Result Diagrams: 03/29/17 03:00 03/29/17 03:00 Recent Labs: Laboratory Last Values WBC 8.4 Th/cmm (4.8-10.8) D 03/29/17 03:00 RBC 3.77 Mil/cmm (3.80-5.80) L 03/29/17 03:00 Hgb 11.9 gm/dL (12-16) L 03/29/17 03:00 Hct 35.7 % (41.0-60) L 03/29/17 03:00 MCV 94.6 fl (80-99) 03/29/17 03:00 MCH 31.5 pg (27.0-31.0) H 03/29/17 03:00 MCHC Differential 33.2 pg (28.0-36.0) 03/29/17 03:00 RDW 13.2 % (11.5-20.0) 03/29/17 03:00 Plt Count 209 Th/cmm (150-400) 03/29/17 03:00 MPV 7.2 fl 03/29/17 03:00 Neutrophils % 79.4 % (40.0-80.0) 03/29/17 03:00 Band Neutrophils % 3 % (0-10) 03/24/17 03:30 Lymphocytes % 13.4 % (20.0-50.0) L 03/29/17 03:00 Monocytes % 6.2 % (2.0-10.0) 03/29/17 03:00 Eosinophils % 0.0 % (0.0-5.0) 03/29/17 03:00 Basophils % 1.0 % (0.0-2.0) 03/29/17 03:00 Neutrophils (Manual) 89 % (40-80) H 03/24/17 03:30 Lymphocytes 7 % (20-50) L 03/24/17 03:30 Monocytes 1 % (2-10) L 03/24/17 03:30 Platelet Estimate ADEQUATE (NORMAL) 03/24/17 03:30 PT 37.3 SECONDS (9.5-11.5) H 03/29/17 03:00 INR 3.37 (0.5-1.4) H 03/29/17 03:00 PTT (Actin FS) 34.5 SECONDS (26.0-38.0) 03/24/17 03:30 Specimen Source Arterial 03/28/17 08:30 Sample Site Right Radial 03/28/17 08:30 pH 7.48 (7.35-7.45) H 03/28/17 08:30 pCO2 65.0 mmHg (35.0-45.0) H* 03/28/17 08:30 pO2 60.0 mmHg (80.0-100.0) L 03/28/17 08:30 HCO3 41.3 mEq/L (20.0-26.0) H 03/28/17 08:30 Base Excess 21.2 mEq/L (-3.0-3.0) H 03/28/17 08:30 O2 Saturation 92.0 % (92.0-100.0) 03/28/17 08:30 Shamar Test NA 03/28/17 08:30 Vent Rate NA 03/28/17 08:30 Inspired O2 32 03/28/17 08:30 Tidal Volume NA 03/28/17 08:30 PEEP NA 03/28/17 08:30 Pressure (ins/psv/peep) NA 03/28/17 08:30 Critical Value SH 03/28/17 08:30 Sodium 141 mEq/L (136-145) 03/29/17 03:00 Potassium 3.9 mEq/L (3.5-5.1) 03/29/17 03:00 Chloride 99 mEq/L (98-107) 03/29/17 03:00 Carbon Dioxide 40.9 mEq/L (21.0-31.0) H 03/29/17 03:00 Anion Gap 5.0 (7.0-16.0) L 03/29/17 03:00 BUN 37 mg/dL (7-25) H 03/29/17 03:00 Creatinine 0.4 mg/dL (0.7-1.3) L 03/29/17 03:00 Est GFR ( Amer) TNP 03/29/17 03:00 Est GFR (Non-Af Amer) TNP 03/29/17 03:00 BUN/Creatinine Ratio 92.5 03/29/17 03:00 Glucose 104 mg/dL (70-105) 03/29/17 03:00 POC Glucose 133 MG/DL (70 - 105) H 03/29/17 05:11 Hemoglobin A1c % 5.4 % (4.0-6.0) 03/24/17 03:30 Whole Bld Lactic Acid 1.35 mmol/L (0.60-1.99) 03/24/17 03:30 Calcium 8.2 mg/dL (8.6-10.3) L 03/29/17 03:00 Phosphorus 3.0 mg/dL (2.5-5.0) 03/25/17 04:08 Magnesium 1.9 mg/dL (1.9-2.7) 03/25/17 04:08 Total Bilirubin 0.2 mg/dL (0.3-1.0) L 03/29/17 03:00 AST 44 U/L (13-39) H 03/29/17 03:00 ALT 58 U/L (7-52) H 03/29/17 03:00 Alkaline Phosphatase 69 U/L (34-104) 03/29/17 03:00 Ammonia 80 umol/L (16-53) H 03/29/17 03:00 B-Natriuretic Peptide 219.0 pg/mL (5.0-100.0) H 03/27/17 07:43 Total Protein 5.8 gm/dL (6.0-8.3) L 03/29/17 03:00 Albumin 2.8 gm/dL (4.2-5.5) L 03/29/17 03:00 Globulin 3.0 gm/dL 03/29/17 03:00 Albumin/Globulin Ratio 0.9 (1.0-1.8) L 03/29/17 03:00 TSH 0.81 uIU/ml (0.34-5.60) 03/25/17 04:08 Vancomycin Trough 28.3 ug/mL (10-20) H 03/29/17 03:00 Phenytoin 16.2 ug/ml (10.0-20.0) 03/24/17 03:30 Hepatitis A IgM Ab Negative (Negative) 03/27/17 07:43 Hep Bs Antigen Negative (Negative) 03/27/17 07:43 Hep B Core IgM Ab Negative (Negative) 03/27/17 07:43 Hepatitis C Antibody <0.1 s/co ratio (0.0-0.9) 03/27/17 07:43 - Physical Exam Vitals and I&O: Vital Signs Temp 98.3 F 03/29/17 04:00 Pulse 79 03/29/17 07:02 Resp 16 03/29/17 07:14 BP 138/70 03/29/17 04:00 Pulse Ox 95 03/29/17 07:02 Intake & Output 03/28/17 03/29/17 03/29/17 18:59 06:59 18:59 Intake Total 920 1100 Output Total 600 400 Balance 320 700 Weight (lbs) 96.162 kg 98.43 kg Intake: Intake, IV Amount 500 500 Vancomycin HCl 1.5 gm In 500 Sodium Chloride 0.9% 500 ml @ 250 mls/hr IV Q12H [facility] Rx#:[id number] Tube Feeding 300 600 Other 120 Output: Urine 600 400 Other: # Bowel Movements 2 Stool Characteristics Soft Soft Formed Active Medications: Current Medications Acetaminophen (Tylenol 650mg/20.3ml Suspension) 650 mg GT Q4HR PRN PRN Reason: FEVER >100.4 OR FOR PAIN Stop: 05/23/17 08:13 Last Admin: 03/26/17 18:10 Dose: 650 mg Albuterol/Ipratropium (Duoneb Neb) 3 ml HHN Q4HRT [facility] Stop: 05/24/17 14:59 Last Admin: 03/29/17 06:48 Dose: 3 ml Ascorbic Acid (Vitamin C) 500 mg GT DAILY [facility] Stop: 05/23/17 08:59 Last Admin: 03/28/17 08:33 Dose: 500 mg Bisacodyl (Dulcolax 10 Mg Supp) 10 mg RC DAILY PRN PRN Reason: Constipation Stop: 05/23/17 08:13 Budesonide (Pulmicort) 0.5 mg HHN BIDRT [facility] Stop: 05/24/17 18:59 Last Admin: 03/29/17 06:48 Dose: 0.5 mg Vancomycin HCl 1.5 gm/ Sodium (Chloride) 500 mls @ 250 mls/hr IV Q12H [facility] Stop: 05/27/17 08:59 Last Admin: 03/28/17 22:22 Dose: 250 mls/hr Sodium Chloride (Nacl 0.9%) 1,000 mls @ 0 mls/hr IV .Q0M [facility] PRN Reason: TKO Stop: 05/27/17 16:40 Insulin Aspart (Novolog Insulin Sliding Scale) 0 units SUBQ ACHS [facility] PRN Reason: Protocol Stop: 05/23/17 11:29 Last Admin: 03/29/17 06:38 Dose: Not Given Lactulose (Cephulac) 30 gm PO BID [facility] Stop: 05/26/17 08:59 Last Admin: 03/28/17 17:20 Dose: 30 gm Levetiracetam (Keppra) 750 mg GT Q12HR [facility] Stop: 05/23/17 08:59 Last Admin: 03/28/17 22:01 Dose: 750 mg Magnesium Hydroxide (Milk Of Magnesia) 30 ml GT DAILY PRN PRN Reason: IF NO BM IN TWO DAYS Stop: 05/23/17 08:13 Last Admin: 03/26/17 18:10 Dose: 30 ml Methylprednisolone Sodium Succinate (Solu-Medrol) 20 mg IVP Q8HR [facility] Stop: 05/27/17 20:59 Last Admin: 03/29/17 05:52 Dose: 20 mg Metoprolol Tartrate (Lopressor) 25 mg GT Q12HR [facility] Stop: 05/25/17 08:59 Last Admin: 03/28/17 22:01 Dose: 25 mg Miscellaneous (Vte Chemical Prophylaxis Screen/ Admission) 1 ea PRN PRN PRN Reason: PROTOCOL Stop: 05/23/17 12:47 Miscellaneous (Probiotic Screen) 1 ea PRN PRN PRN Reason: PROTOCOL Stop: 05/23/17 13:44 Miscellaneous (Vancomycin Iv Per Pharmacy) 1 ea PRN PRN PRN Reason: PROTOCOL Stop: 05/24/17 13:47 Multivitamins/Vitamin C (Theragran) 1 tab GT DAILY [facility] Stop: 05/23/17 08:59 Last Admin: 03/28/17 08:33 Dose: 1 tab Ondansetron HCl (Zofran Odt) 4 mg SL Q6HR PRN PRN Reason: Vomiting Pantoprazole Sodium (Protonix) 40 mg GT DAILY [facility] Stop: 05/23/17 08:59 Last Admin: 03/28/17 08:33 Dose: 40 mg Phenytoin (Dilantin) 300 mg GT TID [facility] Stop: 05/23/17 08:59 Last Admin: 03/28/17 22:01 Dose: 300 mg Sodium Phosphate (Fleet Enema) 135 ml RC Q48H PRN PRN Reason: IF MOM OR DULCOLAX INEFFECTIVE Stop: 05/23/17 08:13 Last Admin: 03/27/17 15:05 Dose: 135 ml Valproate Sodium (Depakene) 500 mg GT Q12H [facility] PRN Reason: Protocol Stop: 05/23/17 08:59 Last Admin: 03/28/17 22:00 Dose: 500 mg Warfarin Sodium (Coumadin Per Pharmacy) 1 ea PRN PRN; Protocol PRN Reason: RX MONITORING Stop: 05/23/17 08:15 Zinc Sulfate (Zinc Sulfate) 220 mg GT DAILY [facility] Stop: 05/23/17 08:59 Last Admin: 03/28/17 08:33 Dose: 220 mg General: No acute distress, Other, no Alert HEENT: Atraumatic, PERRLA, EOMI Neck: Supple Cardiovascular: Regular rate, Normal S1, Normal S2 Lungs: Other (decreased breath sounds) Abdomen: Bowel sounds, Soft Extremities: no Clubbing, no Cyanosis, no Edema - Procedures Procedures: Procedures Procedure Code Date ASSISTANCE WITH RESPIRATORY VENTILATION, 24-96 HRS, CPAP [id number] 03/24/17 CHANGE FEEDING DEVICE IN UP INTEST TRACT, TERRA COTTA ROOFER APPROACH [id number] 01/18/17 CHANGE GASTROSTOMY TUBE 50965 01/18/17 CLOSURE SKIN & SUBCUTANEOUS NEC 86.59 03/07/12 GROUP PSYCHOTHERAPY 44924 10/25/15 GROUP PSYCHOTHERAPY [id number] 10/25/15 IMMUNIZATION ADMIN 17666 07/30/13 INSERT INDWELLING CATH 57.94 01/31/10 INSERT TEMP BLADDER CATH 10224 01/31/10 OTHER GROUP THERAPY 94.44 02/23/12 POS AIRWAY PRESSURE CPAP 71063 03/24/17 RECREATIONAL THERAPY 93.81 02/23/12 RPR F/E/E/N/L/M 2.6-5.0 [place] [address] 03/07/12 VACCINATION NEC 99.55 07/30/13 VACCINE TOXOID 37652 07/30/13 Assessment/Plan - Problem List Patient Problems: All Active Problems Pneumonia (Active) J18.9 DISLODGED GASTROSTOMY TUBE (Acute) GASTRIC TUBE DISLODGEMENT (Acute) Psychiatric disorder (Acute) F99 The administrative codes within the [employer] content you are accessing may have as of 09/13/2015. Please contact your IT Dept/Help Desk and request the latest Regulatory release be installed. IT Dept/Help Desk- Please refer to our FAQ page ([email or web address]) or contact [employer] Customer Support at [email or web address] (Acute) - Assessment Assessment: s/p acute respiratory failure ... on O2 support, IV solumedrol, IV Vancomycin CHF (mild) --- please see dictated ECHO report severe COPD ... continue IV solumedrol, IV Vancomycin, albuterol leukocytosis WBC 13K -- 9K hyponatremia Na [phone] ... improved. diabetes mellitus ... stable HTN ... stable coagulopathy ... coumadin per pharmacy dehydration ... improving hepatic encephalopathy w/ ammonia 100 --> 88 -- improving. will continue lactulose. - Plan Plan: s/p acute respiratory failure ... on O2 support, IV solumedrol, IV Vancomycin CHF (mild) --- please see dictated ECHO report COPD ... continue IV solumedrol, IV Vancomycin, albuterol leukocytosis WBC 13K -- 9K hyponatremia Na [phone] ... improved. diabetes mellitus ... stable HTN ... stable coagulopathy ... coumadin per pharmacy dehydration ... improving hepatic encephalopathy w/ ammonia 100 --> 88 -- improving. will continue lactulose. Nutritional Asmnt/Malnutr-PDOC - Dietary Evaluation Malnutrition Findings (Please click <Entered> for more info): Nutritional Asmnt/Malnutrition Start: 03/25/17 13: 34 Text: Status: Complete Freq: Document 03/25/17 13:48 SHANICE (Rec: 03/25/17 13:55 SHANICE DELGADILLO -[id number]) Nutritional Asmnt/Malnutrition Patient General Information Nutritional Screening High Risk Screening Diagnosis Pneumonia Pertinent Medical Hx/Surgical Hx Pt is s/p acute respiratory failure, w/ mild CHF, COPD, pneumonia, r/o aspiration per MD notes PMH: CHF, DM, CVA w/ late effect, seizure disorder, COPD , dementia, HTN per MD notes Subjective Information Pt seen by RD for high risk trigger: Augustine 12. Pt was resting in bed, +bipap, +aphasic, w/ TF infusing as per MD orders. Pt appeared over-nourished for ht, c/w anthropometrics and verified by bedscale wt taken by RD. Per RN, pt has been tolerating TF well, and recently started on TF at 1200 today as per MD orders. RN reported that pt has been having thick secretions, and wasn't able to tolerate O2 via venti-mask. RN also stated that pt has 2+ non-pitting edema to bilateral lower extremities. Abd is non -tender/large/round, no BM, and residuals noted less than 30 ml per nursing notes Current TF regimen is adequate and appropriate. Pt is not appropriate for nutrition education. Current Diet Order/ Nutrition Support Nutren 2.0 at 50 ml/hr via GT x20 hours (3641-6689) Patient / S.O Can't verbalize diet edu Pertinent Medications VIT C, dulcolax, MOM, solu- medrol, theragran, zofran, dilantin, fleet enema, coumadin, zinc sulfate Pertinent Labs Na 128 L, BG 176 H, POC BG 148 H, BUN 26 H, CRE 0.4 L, ALB 3 L Nutritional Hx/Data Height 1.73 m Height (Calculated Centimeters) 172.7 Current Weight (lbs) 92.079 kg Weight (Calculated Kilograms) 92.1 Weight (Calculated Grams) 04962.3 [place] Body Weight 154 lb, 70 kg % [place] Body Weight 131 Weight Status Obese GI Symptoms GI Symptoms None Skin Integrity/Comment: Augustine: 12; skin intact per RN ; immobility noted per nursing notes Estimated Nutritional Goals BEE in Kcals: Adj wt of IBW Calories/Kcals/Kg 30-35 kcal/kg Adj IBW for COPD , respiratory failure Kcals Calculated 5208-3142 kcal/day Protein: Adj wt of IBW Protein g/k.3-2 gm/kg Adj IBW for COPD, respiratory failure Protein Calculated 99-152 gm/day Fluid: ml Per MD (CHF) Nutritional Problem 1. Problem Problem Increased nutritional needs Etiology related to metabolic demands Signs/Symptoms: as evidenced by estimated nutritional requirements for COPD and respiratory failure. Malnutrition Alert Is there a minimum of two criteria No selected? Query Text:Check all the applicable criteria. A minimum of two criteria are recommended for diagnosis of either severe or non-severe malnutrition. Malnutrition Related to Morbid Obesity Malnutrition related to morbid obesity No Intervention/Recommendation Comments * Recommend continuing Nutren 2.0 at 50 ml/hr via GT x20 hours (9518-4268) per MD Provides: 2000 kcal/day, 84 gm protein/day, and 692 ml free water/day Meets: 88% of lower end of estimated caloric needs and 85 % of lower end of estimated protein needs Expected Outcomes/Goals Expected Outcomes/Goals - Monitor tolerance to EN support w/ goal of pt meeting at least 85% of estimated nutritional needs, labs trending WNL, normal GI function, and skin integrity/ wt maintenance within 2-3 days
--- NOTE | 2017-03-29 09:04 | Diagnostic Imaging Report ---
Portable chest x-ray HISTORY: Shortness of breath Compared with the prior exam of March 27, 2017, the heart is enlarged. Atherosclerotic calcification seen in the aorta. Accentuation of the lower interstitial lung markings. A degree of congestive heart failure cannot be excluded. No nallely pulmonary edema. No other focal processes. IMPRESSION: 1. Cardiomegaly with atherosclerotic vascular changes. A mild degree of congestive heart failure cannot be excluded. No nallely pulmonary edema or other focal processes.
[2017-03-29] MEDS: Levetiracetam 500 mg/5mL 5mL UDC GT SCH (09:24)
[2017-03-29] MEDS: Lactulose 10 Gm/15 mL 30mL UDC PO SCH ×2 (09:25→17:28)
[2017-03-29] MEDS: Pantoprazole 40 mg/Packet GT SCH (09:26)
[2017-03-29] MEDS: Multivitamin Tab GT SCH (09:26)
[2017-03-29] MEDS: Vancomycin HCl 1.5 GM in Sodium Chloride 0.9% 500 ML IV SCH (09:27)
--- NOTE | 2017-03-29 15:02 | Progress Notes ---
DATE: 03/28/2017 PULMONARY PROGRESS NOTE PROBLEM LIST: 1. Acute respiratory failure with tracheobronchitis, improving. 2. COPD. 3. Obstructive sleep apnea syndrome with possibly organic underlying Alzheimer's. SYMPTOMS: Nil. Opens eyes, though mumbling here and there, but no respiratory distress. Has some upper airway obstructive type of noise from the tongue following back but otherwise unremarkable. PHYSICAL EXAMINATION: GENERAL: No distress. VITAL SIGNS: Temperature is 97.2, pulse is in 80s, blood pressure 140/69 and saturation in high 90s on 2 L. NECK: Veins not visualized. Good bilateral carotid upstroke. CHEST: Shows diminished air entry without any other significant adventitious breath sounds. HEART: Regular. EXTREMITIES: Slight trace of peripheral edema. SKIN: Skin turgor is slightly better. LABORATORY DATA: The patient's CBC: White count is ____, hemoglobin 12.2 and patient's ABG on 32%, pCO2 of 65, pO2 of 60, pH of 7.4. The patient's electrolytes, sugar on a higher side. ASSESSMENT AND IMPRESSION: The patient is clinically doing much better, still blood gases are marginal, but clinically much better with underlying acute tracheobronchitis with respiratory failure with underlying chronic obstructive pulmonary disease with obstructive sleep apnea syndrome. PLANS AND SUGGESTIONS: We will cut down steroids. We will discontinue IVs and hopefully if he remains in next 24-48 hours, discharge planning would be consideration and go from there. JOB# [id number]
[2017-03-29] MEDS ORDERED: predniSONE 5 mg/5 mL UDC PO SCH (17:00)
--- NOTE | 2017-03-30 03:12 | Progress Notes ---
DATE: 03/29/2017 PROBLEM LIST: 1. Acute respiratory failure, improved. 2. Chronic ____. 3. Dysphagia with recurrent secretions ____. 4. Chronic obstructive pulmonary disease. 3. Underlying history of seizure disorder. SYMPTOMS: Nil. Some ____ noise in the throat, but otherwise unremarkable. No respiratory distress, etc. PHYSICAL EXAMINATION: VITAL SIGNS: Temperature 98.6, BP 120/69, saturation 95% on 2 L per minute. NECK: Veins not visualized. CHEST: Shows diminished air entry with occasional rhonchi, upper airway secretory noise. HEART: Regular. ABDOMEN: Soft and nontender. LABORATORY DATA: The patient's CO2 content is 49. White count is 8.4. ASSESSMENT: The patient is clinically stable and improving. PLANS AND SUGGESTIONS: We will go ahead and okay for long-term acute care. We will switch to G-tube, Prednisone, and go from there. JOB# [id number]
--- NOTE | 2017-04-06 10:19 | Discharge Summary ---
DATE OF DISCHARGE: 03/29/2017 ATTENDING PHYSICIAN: Vazquez Gunn DO PRELIMINARY DIAGNOSES: 1. Acute respiratory failure. 2. Obstructive sleep apnea. 3. Morbid obesity. 4. Congestive heart failure. 5. Chronic obstructive pulmonary disease. 6. Diabetes mellitus. 7. History of cerebrovascular accident. 8. Seizure disorder. 9. Pneumonia. 10. Leukocytosis. 11. Hyponatremia. 12. Coagulopathy. DISCHARGE DIAGNOSES: 1. Acute respiratory failure. 2. Obstructive sleep apnea. 3. Morbid obesity. 4. Congestive heart failure. 5. Chronic obstructive pulmonary disease. 6. Diabetes mellitus. 7. History of cerebrovascular accident. 8. Seizure disorder. 9. Pneumonia. 10. Leukocytosis. 11. Hyponatremia. 12. Coagulopathy. HISTORY OF PRESENT ILLNESS: This is an 86-year-old male who presents to [facility] ER from long-term facility for increased chest congestion noted by the nursing staff. The patient has a previous history of COPD, hypertension, CHF, CVA, dementia, diabetes mellitus type 2, and seizure disorder. While in the ER, the patient had routine lab work, which revealed sodium of 121, chloride 85, BUN 22, leukocytes, white blood cells were noted to be at 13.6 with 3% bands. The patient had a chest x-ray that did not reveal any consolidation. He was subsequently admitted to ICU for further evaluation and treatment. HOSPITAL COURSE: The patient improved during his hospital stay, was transferred to Med/Surg, during which time the patient had been seen and evaluated by Creative Writing Professor, DR. Prasad. See dictated report. The patient also was seen by Cardiology. Please see dictated report. The patient was subsequently transferred to long-term acute care for continued treatment and evaluation. JOB# [id number]
== END 2017-03-29 19:27 | DRG 189 ==
LOC: ER 02:41 → TELE 07:00 → ICU 10:16 → TELE 03-28 15:51
PROVIDERS: ADMIT Family Medicine; ATTEND Family Medicine
PROC: 5A09457 Assistance with Respiratory Ventilation, 24-96 Consecutive Hours, Continuous Positive Airway Pressure (ICD-10-PCS; principal; 2017-03-24)
DX: J96.20 Acute and chronic respiratory failure, unspecified whether with hypoxia or hypercapnia (principal); J18.9 Pneumonia, unspecified organism; I50.31 Acute diastolic (congestive) heart failure; J44.0 Chronic obstructive pulmonary disease with (acute) lower respiratory infection; D68.9 Coagulation defect, unspecified; E87.1 Hypo-osmolality and hyponatremia; F03.90 Unspecified dementia, unspecified severity, without behavioral disturbance, psychotic disturbance, mood disturbance, and anxiety; I11.0 Hypertensive heart disease with heart failure; E66.01 Morbid (severe) obesity due to excess calories; J44.1 Chronic obstructive pulmonary disease with (acute) exacerbation; K72.90 Hepatic failure, unspecified without coma; Z93.1 Gastrostomy status; C44.42 Squamous cell carcinoma of skin of scalp and neck; E11.9 Type 2 diabetes mellitus without complications; I69.30 Unspecified sequelae of cerebral infarction; G40.909 Epilepsy, unspecified, not intractable, without status epilepticus; M19.90 Unspecified osteoarthritis, unspecified site; E86.0 Dehydration; J20.9 Acute bronchitis, unspecified; G47.33 Obstructive sleep apnea (adult) (pediatric); Z85.89 Personal history of malignant neoplasm of other organs and systems; Z79.4 Long term (current) use of insulin; Z88.0 Allergy status to penicillin; Z68.33 Body mass index [BMI] 33.0-33.9, adult
CPT/HCPCS: 36415-UA; 36600-90; 71010-TC; 80048-TC; 80053-TC; 80074-90; 80185-TC; 80202-TC; 82140-TC; 82803-TC; 82948-90; 83036-90; 83605; 83735-TC; 83880-TC; 84100-TC; 84443-TC; 85007-TC; 85025-TC; 85027-TC; 85610-TC; 87070; 94640; 94660; 94760; J0456; J1815; J1940; J1956; J2920; J2930; J3370; J7030; J7040; J7512; Z7502; Z7610